=== PATIENT | female | born 1945 | race Caucasian/White ===

== ENCOUNTER 2018-12-20 18:34 | Inpatient (IN) | payer MEDICARE, OTHER, SELFPAY ==
[2018-12-20] VITALS (14 sets, daily range): BP systolic 131–152; BP diastolic 73–92; PULSE 86–98; RESP 16–23; TEMP 36.8–36.9; O2SAT 98–99; BMI 19.5; BMI 17.6; BMI 17.7
--- NOTE | 2018-12-20 18:50 | ED.RN ---
Pt's daughter states they last spoke to pt at 1600 yesterday and were not alert of any increased difficulties or deficits. Spoke with pt's son that saw her today at 1600. Stated she was on her left side and did not notice a droop to her face but did state she c/o pain to left arm and couldn't move it. states speech was normal for her. Daughter states this is typical behavior after missing her carbidopa. Pt has missed 3 doses today.
--- NOTE | 2018-12-20 19:01 | EKG12_ITS ---
Test Reason : Blood Pressure : / mmHG Vent. Rate : 091 BPM Atrial Rate : 091 BPM P-R Int : 122 ms QRS Dur : 082 ms QT Int : 358 ms P-R-T Axes : 054 -55 061 degrees QTc Int : 440 ms Normal sinus rhythm Left axis deviation Poor R- Wave Progression Septal ME, indetermined age; cannot be excluded Abnormal ECG Confirmed by FABIENNE MALIN, ETHEL ([id number]), photograph editor HEATH COHEN ([id number]) on 12/22/2018 12:19:52 PM Referred By: Agus Ortez Confirmed By:ETHEL LOVING MD
--- NOTE | 2018-12-20 19:01 | CT_ITS ---
STUDY: CT BRAIN WITHOUT CONTRAST REASON FOR EXAM: Female, 73 years old. Left facial droop, history of Parkinson's RADIATION DOSAGE (If Supplied By Facility): CTDIvol = ( 44.99 ) mGy, DLP = ( 745.49 ) mGycm TECHNIQUE: Transaxial CT imaging of the brain was performed without administration of intravenous contrast material. Individualized dose optimization techniques were used for this CT. COMPARISON: No relevant priors. FINDINGS: Normal soft tissue structures. Normal calvarium. Normal size ventricles and extra-axial spaces for the patient's age. Normal white matter tracts of the cerebral hemispheres. Normal basal ganglia and thalami. Normal brainstem. Normal cerebellum. There is no intracranial hemorrhage. There are no findings of an acute ischemic infarction. Normal visualized paranasal sinuses. CT/Brain/Head without Contrast IMPRESSION: Normal unenhanced CT scan of the brain. Electronically Signed: Omar Smith MD at 20:05 EDT , Service support ,
[2018-12-20] MEDS: 0.9% Normal Saline 1,000 ML 100 ML IV (19:05)
--- NOTE | 2018-12-20 19:16 | RAD_ITS ---
STUDY: X-RAY CHEST REASON FOR EXAM: Female, 73 years old. Left-sided facial droop, left-sided weakness, history of Parkinson's TECHNIQUE: Single AP portable view of the chest. 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 The lungs are clear and expanded. There is no demonstrated pleural abnormality. Normal size heart. Normal mediastinum and hannah. Normal visualized pulmonary arteries. There are calcified plaques of the aortic arch. Normal visualized thoracic spine. Normal visualized ribs, clavicles, and shoulders. There is no demonstrated abnormality of the visualized soft tissue structures of the upper abdomen. RAD/Chest 1 View IMPRESSION: Calcified plaques of the aortic arch. No acute cardiopulmonary disease process is seen. Electronically Signed: Omar Smith MD at 19:40 EDT , Service support ,
[2018-12-20 19:26] LABS: Bedside Glucose 119 mg/dL (70-110)
[2018-12-20 19:30] LABS: Absolute Lymphocyte Count 2.37 X10^3/ul (0.83-4.51); Basophil# 0.01 X10^3/uL; Basophil% 0.2 % (0-1); Eosinophil# 0.02 X10^3/uL; Eosinophils% 0.3 % (0-5); Hemoglobin 10.9 g/dl (12.0-15.0); Lymphocyte # 2.37 X10^3/ul (4.0); Lymphocyte % 39.8 % (19-41); Mean Corpuscular Volume 90.9 fL (81-99); Monocyte# 0.56 X10^3/uL; Monocyte% 9.4 % (0-10); Neutrophil # 2.99 X10^3/uL (2.7-7.7); Neutrophil % 50.3 % (47-70); Platelet Count 296 K/mm3 (150-450); RBC Distribution Width CV 13.3 % (11.6-14.6); RBC Distribution Width SD 44.4 fl (35.1-43.9); Red Blood Count 3.63 M/mm3 (4.2-5.4)
[2018-12-20 19:31] LABS: POSITIVE COUNT NO; POSITIVE DIFFERENTIAL NO; POSITIVE MORPHOLOGY NO
[2018-12-20 19:33] LABS: Prothrombin Time (Protime)PT. 13.4 SECONDS (11.7-14.9)
[2018-12-20 19:34] LABS: Partial Thromboplast Time 27.3 Seconds (24.1-36.2)
[2018-12-20 19:46] LABS: Anion Gap 4 (5-15); BUN 26 mg/dL (7-18); BUN/Creat Ratio 32.7 RATIO (10-20); Calcium,Total 8.6 mg/dL (8.5-10.1); Chloride 108 mmol/L (98-107); Creatinine, Serum 0.79 mg/dL (0.55-1.02); EST Glomerular Filtration Rate 76 mL/min (>60); Est Glom Filt Rate - Afr Amer 91 mL/min (>60); Estimated Creatinine Clearance 35.24 ml/min; Glucose 125 mg/dL (74-106); Sodium Level 139 mmol/L (136-145)
[2018-12-20] MEDS: Carbidopa/Levodopa 25/100 Tablet PO (20:17)
--- NOTE | 2018-12-20 20:38 | ED.VISSUMM ---
- ER Visit Summary Date of Service: 12/20/18 Chief Complaint: [Patient was droop and left-sided weakness] History of Present Illness: The patient is a 73 F [resents to the emergency department with complaint of facial droop and left-sided weakness that was noted when the patient's daughter went to check on her this evening around 5:00. Patient was last seen by the daughter about a week ago as they were on a vacation in [place]. When the patient's sons to check on her earlier in the day around 4 PM and he did not notice anything unusual about her as she always seems to kind of lay on her left side. Patient's daughter states that this is happened to the patient in the past when she has not taken her consents medications. Patient was noted to have missed her last 3 doses today. Patient generally is weak. She denies any headache or chest pain or shortness of breath. Patient has history of Parkinson's and anxiety. Surgical history includes appendectomy, cholecystectomy, hysterectomy.] Physical Examination: [HEENT-PERRLA, EOMI. Cranial nerves II through XII grossly intact. TMs clear. Mucous membranes moist. No adenopathy. Patient does have a left-sided facial droop. Cardiovascular-regular rate and rhythm without murmur or ectopy Lungs-clear to auscultation, chest wall stable without crepitus or subcu emphysema Abdomen-normoactive bowel sounds, soft, nontender, no rebound or rigidity, no peritoneal signs. Neuro exam-patient had an NIH stroke scale of 6 with left-sided weakness and left-sided facial droop. Patient is able to use her left arm as she can bring it up to her nose to scratch her nose. She has a hard time holding it up against gravity though. Extremities-intact ?4, normal range of motion, normal pulses, atraumatic] Test Results: [CT scan of the brain without contrast was unremarkable. EKG obtained showed sinus rhythm with a ventricular rate of 91 bpm with no acute ST segment changes. CBC with differential 6.0, hemoglobin 10.9, hematocrit 33, platelet 296. Chemistries unremarkable. INR was 1.0. Troponin is less than 0.015.] Emergency Department Course and Treatment: [Case was discussed with neurologist on-call who requested we admit patient for further work-up and evaluation. Case will be discussed with hospitalist for admission. We attempted to give patient levodopa.] Patient not a thrombolytic candidate as unclear time of symptom onset. Treatment Plan: [Admit] Disposition: [Admit] Impression: [Weakness CVA Parkinson's disease ] This note was generated with [employer] dictation software. It may contain incorrect words, spelling, and punctuation that were not noted in review of the chart prior to signing ED Disposition - Plan for ED Patient: Referrals: Chad Zamorano MD [Primary Care Provider] -
--- NOTE | 2018-12-20 20:53 | PCM.HP.STD ---
Problem List (1) Stroke-like symptoms Status: Acute History of Present Illness Date of Admission: 12/20/18 Chief Complaint: facial droop The patient is a 73 year old F with a significant history of Parkinson's disease who presented to the emergency department because of facial droop. Associated with symptoms is left-sided heaviness; and lethargy. The time of last known well is unknown. Family to the patient has recurrence of facial droop that they attribute to medicine doses of a Parkinson's medicine. per family patient made a recent verbalization of disinterest in living Per Emergency Department doctor the case was discussed with neurologist. Neurologist recommended that the patient stayed overnight for further work-up and observation. Past Medical History Past Medical History (Chronic Problems): Chronic Problems Parkinson disease (Chronic) Allergies acetaminophen [From [place]] Allergy (Verified 12/20/18 18:43) Rash adhesive Allergy (Verified 12/20/18 18:43) Rash atorvastatin [From Lipitor] Allergy (Verified 12/20/18 18:43) Rash cefaclor [From Ceclor] Allergy (Verified 12/20/18 18:43) Hives Cephalosporins Allergy (Verified 12/20/18 18:43) Unknown ciprofloxacin [From Cipro] Allergy (Verified 03/23/17 07:04) Hives hydrocodone [From [place]] Allergy (Verified 12/20/18 18:43) Rash hydromorphone [From Dilaudid] Allergy (Verified 12/20/18 18:43) Rash Macrolide Antibiotics Allergy (Verified 12/20/18 18:43) Hives oxycodone [From Percocet] Allergy (Verified 12/20/18 18:43) Rash propoxyphene [From Darvocet-N] Allergy (Verified 12/20/18 18:43) Rash simvastatin [From Zocor] Allergy (Verified 12/20/18 18:43) Unknown Sulfa (Sulfonamide Antibiotics) Allergy (Verified 12/20/18 18:43) Rash cimetidine [From Tagamet] Adverse Reaction (Verified 03/23/17 07:04) Upset Stomach erythromycin base Adverse Reaction (Verified 12/20/18 18:43) Upset Stomach Home Medications: Ambulatory Orders Medication Instructions Recorded Carbidopa/Levodopa 25/100 [Sinemet 0.5 tablet PO BID PRN 12/22/16 25/100] Melatonin 10 mg PO DAILY 06/12/16 Mirtazapine [Remeron] 45 mg PO QHS 06/12/16 Omeprazole 1 tab PO BREAKFAST 03/23/17 Paroxetine [Paxil] 1 tab PO DAILY 12/20/18 Carbidopa/Levodopa/Entacapone 200 mg PO Q3H 12/21/18 [Stalevo 100 Tablet] Surgical History: appendectomy, cholecystectomy, hysterectomy Psychiatric History: Depression Lives: Alone - Has home health care Smoking Status: Former smoker - *Family History Maternal History Items: Unknown - As she is adopted Paternal History Items: Unknown - As she is adopted Offspring History Items: Heart Disease - And her son who had significant stenosis to the left main requiring CABG, - Review of Systems Constitutional: Denies: Chills, Fever, Weight Change HEENT: Denies: Head Aches, Sinus Congestion, Sinus Drainage Cardiovascular: Denies: Chest Pain, Palpitations Respiratory: Denies: Cough, Shortness of breath at rest, Sputum production Gastrointestinal: Denies: Abdominal Pain, Nausea, Vomiting Genitourinary: Denies: Dysuria Musculoskeletal: Denies: Joint Pain, Joint Tenderness Skin: Denies: Rash, Wounds Neurological: Denies: Numbness, Tingling, Focal weakness Psychiatric: Denies: Anxiety, Depression, Homicidal Ideations, Suicidal Ideations Hematologic/ Lymphatic: Denies: Easy Bruising, Easy Bleeding VTE Information - Inpt Only VTE Present on Admission: No VTE Mechan Device Prophylaxis: None VTE Pharm Prophylaxis ordered?: Yes Patient Problems: Active and Suspected Problems Stroke-like symptoms (Acute) - Physical Exam General: Alert, Oriented x3, Cooperative HEENT: Atraumatic, PERRLA, EOMI, Normocephalic Neck: Supple, No JVD, Negative Carotid Bruits Lungs: Clear to auscultation, Normal air movement Cardiovascular: Regular rate, No murmurs Abdomen: Bowel Sounds Present, Soft, Non Tender Extremities: No edema, Capillary Refill Less than 3 Seconds Skin: No rashes, No breakdown Musculoskeletal: No Tenderness to Palpation of Joints or Extremities Neurological: Facial Droop - Patient noted to have persistent opening of the left corner of her mouth while her right corner of her mouth remained closed, - - Decreased strength in all extremities. At one point the patient stated that she could not lift her left lower leg. But noted to left and left lower leg for knee to stewart exams. No hyperreflexia. Psych/Mental Status: Normal Affect, Appropriate Vital Signs Temp Pulse Resp BP Pulse Ox 98.4 F 92 16 132/80 H 99 12/20/18 18:35 12/20/18 20:31 12/20/18 20:31 12/20/18 20:31 12/20/18 20:31 Oxygen Delivery Method Room Air Weight: 43.9 kg Body Mass Index (BMI) 19.5 Finger Stick Blood Glucose 119 Laboratory Tests Past 24 Hrs 12/20/18 12/20/18 12/20/18 18:38 18:38 18:38 WBC 6.0 RBC 3.63 L Hgb 10.9 L Hct 33.0 L MCV 90.9 MCH 30.0 MCHC 33.0 RDW 13.3 RDW Differential 44.4 H Plt Count 296 MPV 10.0 Immature Gran % (Auto) 0.000 Neut % (Auto) 50.3 Lymph % (Auto) 39.8 [place] % (Auto) 9.4 Eos % (Auto) 0.3 Baso % (Auto) 0.2 Absolute Neuts (auto) 3.0 Absolute Lymphs (auto) 2.37 Total Counted Not Reportable PT 13.4 INR 1.0 APTT 27.3 Sodium 139 Potassium 4.0 Chloride 108 H Carbon Dioxide 27.0 Anion Gap 4 L BUN 26 H Creatinine 0.79 Estim Creat Clear Calc 35.24 Est GFR (MDRD) Af Amer 91 Est GFR (MDRD) Non-Af 76 BUN/Creatinine Ratio 32.7 H Glucose 125 H Calcium 8.6 Troponin I < 0.015 POC Glucose 12/20/18 19:15 POC Glucose 119 H Assessment/Plan All Active Problems Stroke-like symptoms (Acute) Chest pain (Acute) The patient is a 73 year old F with a significant history of Parkinson's disease who presented to the emergency department because of facial droop and reported left sided heaviness likely from missing does of her Parkinson's medicine; depression. or psychogenic. Strokelike symptoms Likely from missing medicine for Parkinson's disease; depression with lack of motivation; or psychogenic. Of note appears stated that she could not lift her left lower extremities upon command. However she performed knee to stewart exams by placing hair left heel on her right knee and moving it down. CT of the head was unremarkable -Check Hba1c, Lipid level Physical therapy, occupational therapy and speech therapy to work with patient. N.p.o. until bedside swallow eval. Lipid profile and A1c ordered. Permissive hypertension. Control blood pressure with labetalol for systolic blood pressure of more than 220 or diastolic blood pressure of more than 120. -Permissive HTN for 24 hrs. MRI/MRAM of head; brain; and neck. Echocardiogram ordered. Parkinson's Sinemet; and Stalevo continued Depression Remeron and Paxil continued Insomnia Melatonin continued GERD Omeprazole continued DVT prophylaxis Subcutaneous heparin Code Visit OBSV E&M: 63294 Initial observation care L3
--- NOTE | 2018-12-20 21:15 | CM.ED ---
Social Work Assessment Informant: NURSING Reason for Consult: D/C PLANNING/RESOURCES Information obtained from: PATIENT, PATIENT'S DAUGHTER, ARGELIA AND SON-IN-LAW. Living Arrangements: PATIENT LIVES HOME ALONE IN A 2 STORY HOME WITH BASEMENT AND 3-4 STEPS TO ENTER FROM FRONT AND BACK. PATIENT'S BED AND BATH ON 2ND FLOOR. PATIENT SLEEPS ON COUCH AND HAS HALF BATH 10 FT FROM COUCH. DAUGHTER REPORTS WHEN PATIENT IS/CAN TAKE MEDICATIONS REGULARLY IS ABLE TO GO UP AND DOWN THE STEPS TO BED AND BATH. DME: WALKER, [employer] Employment/Financial: RETIRED/STABLE INCOME Supports: PATIENT HAS GOOD SUPPORT FROM DAUGHTER WHO ASSISTS WITH MEDICATION SET UP AND LIVES 5 HOUSES DOWN FROM PATIENT. PATIENT HAS HOME HEALTH AIDE IN THE HOME 2 DAYS/WEEK FOR 2 HOURS. Social/Family Stressors: DAUGHTER AND SON-IN-LAW DO NOT FEEL PATIENT CAN CONTINUE LIVING AT HOME ALONE. PATIENT IS IN AGREEMENT AND FEELS WOULD BENEFIT FROM SNF/REHAB. DAUGHTER REPORTS HER BROTHER, LALY IS HPOA AND IN CHARGE OF PATIENT'S FINANCES. DAUGHTER BELIEVES PATIENT TO HAVE THE MONEY TO BE ABLE TO HAVE ADDITIONAL CARE IN THE HOME OR GO TO ASSISTED LIVING, BUT SON IS RESISTANT. Mental Health History: PATIENT WITH HX OF ANXIETY, DEPRESSION AND PANIC ATTACKS THAT BECOME WORSE WITH THE TREMORS. Substance Abuse History: NONE Interventions: SOCIAL SERVICE ASSESSMENT EDUCATION ON OPTIONS FOR D/C- SNF, HOME HEALTH, ASSISTED LIVING DISCUSSED MEDICARE GUIDELINES FOR SNF. ALL VERBALIZE UNDERSTANDING. REFERRAL TO [facility] T[facility]/REHAB- FAMILY AND PATIENT OPEN TO EITHER OPTION. Assessment: PATIENT IS A 73 Y/O FEMALE WHO PRESENTS TO ED FOR CVA. PATIENT ALERT AND ORIENTED THROUGHOUT ASSESSMENT. PATIENT LIVES HOME ALONE IN A 2 STORY HOME WITH BASEMENT. DAUGHTER STATES FAMILY HAS SAT DOWN TO DISCUSS NEEDS FOR PATIENT AND PATIENT'S SON, WHO IS HPOA/DPOA HAS BEEN RESISTANT TO DETENTION/ASSISTED LIVING. PATIENT IS IN AGREEMENT WITH PLAN FOR SNF. DISCUSSED ALL OPTIONS AND BOTH DAUGHTER AND PATIENT REQUESTING REFERRAL TO REHAB/TCU-WHICHEVER PATIENT IS APPROPRIATE. DAUGHTER STATES PATIENT-WHEN ABLE TO TAKE MEDICATIONS REGULARLY,DOES WELL WITH ADLS/IADLS AND STILL DRIVES. DAUGHTER REPORTS WHEN PATIENT'S TREMORS ARE BAD- PATIENT WILL CRAWL FROM COUCH TO BATHROOM THAT IS 10 FT AWAY. PATIENT STATES, I CAN GET THERE FASTER. DAUGHTER NOTES PATIENT HAS HAD SHOULDER PAIN WHICH SHE BELIEVES IS FROM CRAWLING. EMOTIONAL SUPPORT AND ACTIVE LISTENING PROVIDED THROUGHOUT ASSESSMENT. REFERRAL MADE TO THE REFERRAL LINE FOR TCU/REHAB. DR. EASON AND NURSING UPDATED ON THE ABOVE. PLAN: ADMIT-REFERRAL MADE TO TCU/REHAB
--- NOTE | 2018-12-20 21:59 | ECHOD_ITS ---
Reason For Study: CVA Procedure This was a 2D Doppler, Color Flow transthoracic echocardiogram. The study was technically difficult. Due to body habitus and tremors from Parkinson's. Exam performed portable in patient room. Left Ventricle Normal LV size. Left ventricular systolic function is normal. The estimated ejection fraction is 60 %. Diastolic function is indeterminate. No regional wall motion abnormalities noted. Right Ventricle Normal RV size. Normal systolic function. Atria Normal left atrium. Normal right atrium. No doppler evidence for ASD. Mitral Valve There is moderate mitral annular calcification. Extension of the mitral annular calcification onto the posterior mitral valve leaflet. Trivial mitral valve insufficiency. Tricuspid Valve Normal tricuspid valve. Mild tricuspid valve insufficiency. Right ventricular systolic pressure estimated to be 27 mmHg. Aortic Valve Trisinus/trileaflet aortic valve. Normal aortic valve. Pulmonic Valve The pulmonic valve is not well visualized. Great Vessels Normal sized aortic root. Pericardium/Pleural No pericardial effusion. Medication Performed a rapid injection of agitated mix of 9 cc saline and 1cc air to assess for atrial septal defect. MMode/2D Measurements & Calculations LVIDd: 4.4 cm IVSd: 0.81 cm Ao root diam: 3.0 cm LVIDs: 2.5 cm LVPWd: 0.88 cm RVDd: 2.5 cm FS: 43.7 % LAV(MOD-bp): 26.7 ml LA A4 area: 11.3 cm2 LA dimension(2D): 2.4 cm LAV(MOD-bp) Indexed: 20.7 ml/m2 LAV(MOD-sp2): 21.0 ml LAV(MOD-sp4): 25.3 ml Time Measurements MV dec time: 0.22 sec Doppler Measurements & Calculations MV E max darren: 92.3 cm/sec Ao V2 max: 107.0 cm/sec LV V1 max: 77.1 cm/sec MV A max darren: 112.8 cm/sec Ao max P.6 mmHg LV V1 max P.4 mmHg MV E/A: 0.82 PA V2 max: 87.8 cm/sec TR max darren: 244.6 cm/sec TR max P.9 mmHg Interpretation Summary The study was technically difficult. Left ventricular systolic function is normal. The estimated ejection fraction is 60 %. There is moderate mitral annular calcification. Extension of the mitral annular calcification onto the posterior mitral valve leaflet. Trivial mitral valve insufficiency. Mild tricuspid valve insufficiency. Right ventricular systolic pressure estimated to be 27 mmHg. Diastolic function is indeterminate. Ordering Physician: Agus Ortez Referring Physician: Chad Zamorano Performed By: Ivanna Escamilla, DANELLE, RVT
[2018-12-21] VITALS (12 sets, daily range): BP systolic 99–131; BP diastolic 53–72; PULSE 71–94; RESP 16–18; TEMP 36.7–37; O2SAT 98–100
[2018-12-21 06:32] LABS: Cholesterol 203 mg/dL (200); High Density Lipoprotein 56 mg/dL; Triglycerides 72 mg/dL; Very Low Density Lipoprotein 14 mg/dL (5-40)
[2018-12-21 08:21] LABS: Hemoglobin A1c 5.6 % (4.2-6.3)
--- NOTE | 2018-12-21 08:30 | MRI_ITS ---
STUDY: MRA OF THE HEAD WITHOUT CONTRAST REASON FOR EXAM: Female, 73 years old. CVA. Left arm pain with numbness and weakness. Left facial droop x a few weeks. TECHNIQUE: 3-D ujpf-ct-zbfope (TOF) imaging was performed with MIPs. The study was performed unenhanced. COMPARISON: None. FINDINGS: Normal bilateral petrous carotid arteries. Normal right cavernous carotid artery with a normal supraclinoid bifurcation. Normal left cavernous carotid artery with a normal supraclinoid bifurcation. Normal right A1 segment of the anterior cerebral artery. Developmentally absent left A1 segment of the anterior cerebral artery. Normal intact anterior communicating artery (ACOM). Normal bilateral A2 segments of the anterior cerebral arteries. Normal right M1 and M2 segments of the middle cerebral arteries, with a normal M1 bifurcation. Normal left M1 and M2 segments of the middle cerebral arteries, with a normal M1 bifurcation. No visible right posterior communicating artery (PCOM). No visible left posterior communicating artery (PCOM). Normal bilateral vertebral arteries. Normal basilar artery with a normal basilar bifurcation. The visualized bilateral superior cerebellar (SCA) arteries are normal. Normal bilateral P1, P2 and visualized P3 segments of the posterior cerebral arteries. There is no demonstrated aneurysm of the [place]. There is no major vessel occlusion or hemodynamically significant stenosis. MRI/MRA Head ONLY without Contrast IMPRESSION: Normal MRA of the head Electronically Signed: Horace Galindo MD at 11:12 EDT , Service support ,
--- NOTE | 2018-12-21 08:30 | MRI_ITS ---
STUDY: MRA NECK WITH AND WITHOUT CONTRAST REASON FOR EXAM: Female, 73 years old. CVA. Left arm pain, numbness and left facial droop. TECHNIQUE: 3-D [id number]-zt-[id number] (TOF) imaging was performed in an 1.5 T MRI scanner. 9 IV Dotarem was administered for the contrast enhanced images. COMPARISON: None. FINDINGS: RIGHT CAROTID ARTERIES: Normal right common carotid artery (CCA). Normal right internal carotid bulb. Normal origin of the right internal carotid (ICA) artery without a hemodynamically significant stenosis. Normal visualized cervical portion of the right internal carotid artery. Normal origin of the right external carotid artery (ECA). LEFT CAROTID ARTERIES: Normal left common carotid artery (CCA). Normal left internal carotid bulb. Normal origin of the left internal carotid (ICA) artery without a hemodynamically significant stenosis. Normal visualized cervical portion of the left internal carotid artery. Normal origin of the left external carotid artery (ECA). VERTEBRAL ARTERIES: Normal antegrade flow within the bilateral vertebral artery without a hemodynamically significant stenosis. AORTIC ARCH: Widely patent aortic arch and origins of the great vessels. MRI/MRA Neck WITH and W/O Contrast IMPRESSION: 1. Normal MRA of both carotid arteries and vertebral arteries. 2. Normal aortic arch and origins of the great vessels. Electronically Signed: Horace Galindo MD at 11:33 EDT , Service support ,
--- NOTE | 2018-12-21 08:30 | MRI_ITS ---
STUDY: MRI BRAIN WITHOUT CONTRAST REASON FOR EXAM: Female, 73 years old. CVA. Left arm pain with numbness and weakness. Left facial droop x a few weeks. TECHNIQUE: Standardized multiplanar fat and water weighted pulse sequences were obtained. COMPARISON: CT head without contrast 12/20/2018. FINDINGS: No restricted diffusion to suspect acute or subacute ischemic infarct. Normal size of the ventricles and extra-axial spaces for the patient's age. Subcortical white matter T2 FLAIR hyperintensity focus in each frontal lobe are nonspecific. They may be secondary to microvascular disease. No mass effects and normal chest. Normal bilateral basal ganglia. Normal thalami. There is no extra-axial fluid accumulation. Normal flow voids within the major intracranial circulation suggesting patency by spin echo criteria. Normal sella turcica, pituitary gland, infundibular stalk, optic chiasm and hypothalamus. Normal tectal plate and pineal gland. Normal midbrain, jamshid and medulla. Normal cerebellum. Normal basal cisterns. Normal bilateral temporal bones. Normal bilateral internal auditory canals. No demonstrated orbital abnormality, within the constraints of a routine brain study. Normal visualized paranasal sinuses. Normal calvarium and skull base. Normal visualized soft tissue structures. Normal visualized upper cervical spine. MRI/Brain without Contrast IMPRESSION: 1. No MRI evidence of acute or subacute ischemic infarct. 2. No MRI evidence of remote cortical-based ischemic infarct or old lacunar ischemic infarcts. 3. Small nonspecific T2 FLAIR hyperintensity focus in each frontal lobe (series 6, image 15). They may be migraine-related changes or microvascular disease. Electronically Signed: Horace Galindo MD at 11:17 EDT , Service support ,
[2018-12-21] MEDS: Carbidopa/Levodopa/Entacapone 200 1 TAB PO ×5 (09:43→22:36)
[2018-12-21] MEDS: Enoxaparin 40 MG/0.4 ML Syringe SC (09:43)
[2018-12-21] MEDS: PARoxetine 10 MG Tablet PO (09:43)
[2018-12-21] MEDS: Pantoprazole Sodium 20 MG Tablet PO (09:43)
--- NOTE | 2018-12-21 11:03 | PCM.CONS.GEN ---
Problem List (1) Parkinson disease Status: Chronic Reason for Consult Date of Consultation: 12/21/18 Reason for Consultation: Stroke like symtpoms, PD History of Present Illness: The patient is a 73 year old F with PMH PD and anxiety admitted with stroke like symptoms. History is obtained from medical records and daughter. Per daughter patient lives alone, sometimes uses walker, does not fall, needs some assistance for her ALDs, and does drive. Per daughter she had been in [place] for the last week, came back on Thursday12/19/18, and patient spoke normally on the phone per patient on Thursday, but when she met her yesterday 12/20/18 around 5 PM, she was slumped on the couch, not moving much, had heaviness in the left arm with lethargy, was hardly talking and possibly had some left facial weakness, was rigid. Per daughter this had happened in the past when she missed her PD medications. At present patient denies any MENESES, focal motor weakness, sensory loss, dizziness, speech disturbances or visual disturbances but has bilateral tremors in both legs. Per daughter patient has been diagnosed with PD long time ago, is on Stalevo 200 mg PO 6 times a day and Sinemet 1/2 tab BID PRN, sees Dr. Bergeron for PD, per daughter patient had missed about 3 doses of Stalevo yesterday 12/20/18. [] Past Medical History Past Medical History (Chronic Problems): Chronic Problems Parkinson disease (Chronic) Allergies acetaminophen [From [place]] Allergy (Verified 12/20/18 18:43) Rash adhesive Allergy (Verified 12/20/18 18:43) Rash atorvastatin [From Lipitor] Allergy (Verified 12/20/18 18:43) Rash cefaclor [From Ceclor] Allergy (Verified 12/20/18 18:43) Hives Cephalosporins Allergy (Verified 12/20/18 18:43) Unknown ciprofloxacin [From Cipro] Allergy (Verified 03/23/17 07:04) Hives hydrocodone [From [place]] Allergy (Verified 12/20/18 18:43) Rash hydromorphone [From Dilaudid] Allergy (Verified 12/20/18 18:43) Rash Macrolide Antibiotics Allergy (Verified 12/20/18 18:43) Hives oxycodone [From Percocet] Allergy (Verified 12/20/18 18:43) Rash propoxyphene [From Darvocet-N] Allergy (Verified 12/20/18 18:43) Rash simvastatin [From Zocor] Allergy (Verified 12/20/18 18:43) Unknown Sulfa (Sulfonamide Antibiotics) Allergy (Verified 12/20/18 18:43) Rash cimetidine [From Tagamet] Adverse Reaction (Verified 03/23/17 07:04) Upset Stomach erythromycin base Adverse Reaction (Verified 12/20/18 18:43) Upset Stomach Home Medications: Ambulatory Orders Medication Instructions Recorded Carbidopa/Levodopa 25/100 [Sinemet 0.5 tablet PO BID PRN 06/12/16 25/100] Melatonin 10 mg PO DAILY 06/12/16 Mirtazapine [Remeron] 45 mg PO QHS 06/12/16 Omeprazole 1 tab PO BREAKFAST 03/23/17 Paroxetine [Paxil] 1 tab PO DAILY 12/20/18 Carbidopa/Levodopa/Entacapone 200 mg PO Q3H 12/21/18 [Stalevo 100 Tablet] Surgical History: appendectomy, cholecystectomy, hysterectomy Psychiatric History: Depression Lives: Alone - Has home health care Smoking Status: Former smoker Alcohol: None Drugs: None - *Family History Maternal History Items: Unknown - As she is adopted Paternal History Items: Unknown - As she is adopted Offspring History Items: Heart Disease - And her son who had significant stenosis to the left main requiring CABG, - Review of Systems Constitutional: Reports: - - complete ROS negative except as documented in HPI Patient Problems: Active and Suspected Problems Stroke-like symptoms (Acute) - Physical Exam General: Alert HEENT: Normocephalic Neck: Supple Lungs: Normal air movement Cardiovascular: Normal S1, Normal S2 Abdomen: Bowel Sounds Present Extremities: No cyanosis Neurological: - - consious, alert, AoAx3, CN 2-12 grossly intact, moves all 4 extremities, tone normal both UE, tremors both LE resting, no sensory loss, no cerebellar signs, gait deferred, Reflexes + B/L B/S/T/K/A Psych/Mental Status: Normal Affect Vital Signs Temp Pulse Resp BP Pulse Ox 98.1 F 85 16 128/61 H 99 12/21/18 09:45 12/21/18 09:45 12/21/18 09:45 12/21/18 09:45 12/21/18 09:45 Oxygen Delivery Method Room Air Weight: 39.8 kg Body Mass Index (BMI) 17.6 Finger Stick Blood Glucose 119 Intake and Output for Last 24 Hours 12/19/18 12/20/18 12/21/18 23:59 23:59 23:59 Intake Total 0 / 0 Output Total 700 / 700 Balance -700 / -700 Laboratory Tests Past 24 Hrs 12/20/18 12/20/18 12/20/18 18:38 18:38 18:38 WBC 6.0 RBC 3.63 L Hgb 10.9 L Hct 33.0 L MCV 90.9 MCH 30.0 MCHC 33.0 RDW 13.3 RDW Differential 44.4 H Plt Count 296 MPV 10.0 Immature Gran % (Auto) 0.000 Neut % (Auto) 50.3 Lymph % (Auto) 39.8 Carver % (Auto) 9.4 Eos % (Auto) 0.3 Baso % (Auto) 0.2 Absolute Neuts (auto) 3.0 Absolute Lymphs (auto) 2.37 Total Counted Not Reportable PT 13.4 INR 1.0 APTT 27.3 Sodium 139 Potassium 4.0 Chloride 108 H Carbon Dioxide 27.0 Anion Gap 4 L BUN 26 H Creatinine 0.79 Estim Creat Clear Calc 35.24 Est GFR (MDRD) Af Amer 91 Est GFR (MDRD) Non-Af 76 BUN/Creatinine Ratio 32.7 H Glucose 125 H Hemoglobin A1c Calcium 8.6 Troponin I < 0.015 Triglycerides Cholesterol LDL Cholesterol VLDL Cholesterol HDL Cholesterol 12/21/18 12/21/18 05:04 05:04 WBC RBC Hgb Hct MCV MCH MCHC RDW RDW Differential Plt Count MPV Immature Gran % (Auto) Neut % (Auto) Lymph % (Auto) Carver % (Auto) Eos % (Auto) Baso % (Auto) Absolute Neuts (auto) Absolute Lymphs (auto) Total Counted PT INR APTT Sodium Potassium Chloride Carbon Dioxide Anion Gap BUN Creatinine Estim Creat Clear Calc Est GFR (MDRD) Af Amer Est GFR (MDRD) Non-Af BUN/Creatinine Ratio Glucose Hemoglobin A1c 5.6 Calcium Troponin I Triglycerides 72 Cholesterol 203 H LDL Cholesterol 133 H VLDL Cholesterol 14 HDL Cholesterol 56 POC Glucose 12/20/18 19:15 POC Glucose 119 H Assessment/Plan All Active Problems Stroke-like symptoms (Acute) Chest pain (Acute) The patient is a 73 year old F with PMH PD and anxiety admitted with stroke like symptoms. History is obtained from medical records and daughter. Per daughter patient lives alone, sometimes uses walker, does not fall, needs some assistance for her ALDs, and does drive. Per daughter she had been in [place] for the last week, came back on Thursday12/19/18, and patient spoke normally on the phone per patient on Thursday, but when she met her yesterday 12/20/18 around 5 PM, she was slumped on the couch, not moving much, had heaviness in the left arm with lethargy, was hardly talking and possibly had some left facial weakness, was rigid. Per daughter this had happened in the past when she missed her PD medications. At present patient denies any MENESES, focal motor weakness, sensory loss, dizziness, speech disturbances or visual disturbances but has bilateral tremors in both legs. Per daughter patient has been diagnosed with PD long time ago, is on Stalevo 200 mg PO 6 times a day and Sinemet 1/2 tab BID PRN, sees Dr. Bergeron for PD, per daughter patient had missed about 3 doses of Stalevo yesterday 12/20/18. Impression PD Patients symptoms likely secondary to missing her PD medications Plan -MRI brain- nothing acute, no stroke, MRA head/neck negative -Continue home regimen of PD -PT/OT -Labs reviewed -Check UA -Fall precautions -GI/DVT prophylaxis -Further medical management per hospitalist team -Please call with questions if any -Thank you for allowing us to participate in patient's care and management Code Visit Inpatient E&M: [id number] Init Hosp L3
--- NOTE | 2018-12-21 11:57 | PCM.PN.HOSP ---
Patient Problems: Active and Suspected Problems Stroke-like symptoms (Acute) Subjective: Patient was admitted with left-sided heaviness/weakness and lethargy. He also noticed left-sided facial droop. Patient has a history of advanced Parkinson's disease. Discussed with patient's daughter was last seen well about 1 week ago before leaving for [place]. Overall, stroke work-up was negative. Patient has Marroquin catheter placed in ER. Patient has history of Parkinson disease and not incontinence and difficulty in emptying her bladder. Removal Marroquin catheter ordered. Vitals/I&O's: Vital Signs Temp Pulse Resp BP Pulse Ox 98.1 F 85 16 128/61 H 99 12/21/18 09:45 12/21/18 09:45 12/21/18 09:45 12/21/18 09:45 12/21/18 09:45 Oxygen Delivery Method Room Air Weight: 87 lb 11.904 oz Body Mass Index (BMI) 17.6 Finger Stick Blood Glucose 119 Intake and Output for Last 24 Hours 12/19/18 12/20/18 12/21/18 23:59 23:59 23:59 Intake Total 0 / 0 Output Total 700 / 700 Balance -700 / -700 General: Alert, Oriented x3, Cooperative HEENT: Atraumatic, PERRLA, EOMI, Normocephalic Oral: Dry Mucosa Neck: Supple, No JVD, Negative Carotid Bruits Lungs: Clear to auscultation, No rhonchi, No wheeze, No rales, Diminished Cardiovascular: Regular rate, Regular Rhythm, Normal S1, Normal S2, Murmur - Systolic murmur present on mitral area, aortic region and left lower sternal border. Abdomen: Bowel Sounds Present, Soft, Non Tender, Non-Distended, - - Marroquin catheter urine yellow no pus flecks Extremities: No edema, Capillary Refill Less than 3 Seconds Skin: No rashes, No breakdown Musculoskeletal: No Tenderness to Palpation of Joints or Extremities, Arthritic Changes, - - Stiffness of lower extremity muscles on both legs. Weakness of both lower extremities. Neurological: Cranial nerves II-XII grossly intact, Deep Tendon Reflexes 2+/4 and Symmetrical, Neuro grossly intact Psych/Mental Status: Appropriate, Flat Affect Laboratory Results 12/20/18 18:38: WBC 6.0, RBC 3.63 L, Hgb 10.9 L, Hct 33.0 L, MCV 90.9, MCH 30.0, MCHC 33.0, RDW 13.3, RDW Differential 44.4 H, Plt Count 296, MPV 10.0, Immature Gran % (Auto) 0.000, Neut % (Auto) 50.3, Lymph % (Auto) 39.8, Campbell % (Auto) 9.4, Eos % (Auto) 0.3, Baso % (Auto) 0.2, Absolute Neuts (auto) 3.0, Absolute Lymphs (auto) 2.37, Total Counted Not Reportable 12/20/18 18:38: PT 13.4, INR 1.0, APTT 27.3 12/20/18 18:38: Sodium 139, Potassium 4.0, Chloride 108 H, Carbon Dioxide 27.0, Anion Gap 4 L, BUN 26 H, Creatinine 0.79, Estim Creat Clear Calc 35.24, Est GFR (MDRD) Af Amer 91, Est GFR (MDRD) Non-Af 76, BUN/Creatinine Ratio 32.7 H, Glucose 125 H, Calcium 8.6, Troponin I < 0.015 12/20/18 19:15: POC Glucose 119 H 12/21/18 05:04: Triglycerides 72, Cholesterol 203 H, LDL Cholesterol 133 H, VLDL Cholesterol 14, HDL Cholesterol 56 12/21/18 05:04: Hemoglobin A1c 5.6 Current Medications Carbidopa/Levodopa (Sinemet) 0.5 tablet PO BID PRN PRN PRN Reason: tremors Carbidopa/Levodopa/Entacapone (Stalevo 200 Tablet) 1 tab PO 0730,1030,1330,1630 [facility] Last Admin: 12/21/18 09:43 Dose: 1 tab Documented by: Carbidopa/Levodopa/Entacapone (Stalevo 200 Tablet) 1 tab PO 1930,2230 [facility] Dextrose (D50w Syringe) 0 gm IV X1 PRN; Protocol PRN Reason: Hypoglycemia Enoxaparin Sodium (Lovenox) 40 mg SC DAILY@1000 [facility] Last Admin: 12/21/18 09:43 Dose: 40 mg Documented by: Glucagon () 1 mg IM .X1 PRN PRN Reason: Hypoglycemia Labetalol HCl (Trandate) 10 mg IV Q10M PRN PRN Reason: MAINTAIN BP < 220/120 Stop: 12/21/18 22:00 Melatonin (Melatonin) 10 mg PO DAILY@2200 [facility] Mirtazapine (Remeron) 45 mg PO QHS [facility] Last Admin: 12/20/18 23:37 Dose: Not Given Documented by: Nutritional Formula (Lactose Free) (Ensure Enlive) 120 ml PO 4X/DAY [facility] Last Admin: 12/21/18 09:43 Dose: 120 ml Documented by: Ondansetron HCl (Zofran) 4 mg IV Q8H PRN PRN PRN Reason: NAUSEA/VOMITING Pantoprazole Sodium (Protonix) 20 mg PO BREAKFAST [facility] Last Admin: 12/21/18 09:43 Dose: 20 mg Documented by: Paroxetine HCl (Paxil) 10 mg PO DAILY [facility] Last Admin: 12/21/18 09:43 Dose: 10 mg Documented by: Sodium Chloride () 10 - 40 ml IV UD PRN PRN Reason: SALINE FLUSH Medical Necessity - Tobacco Use Smoking Status: Former smoker Assessment/Plan All Active Problems Stroke-like symptoms (Acute) Chest pain (Acute) The patient is a 73 year old F with a significant history of Parkinson's disease who who is being admitted for concern of a stroke with left-sided facial droop and reported left sided heaviness/weakness after missing her doses of Parkinson's medicine. She also has chronic urinary incontinence possible urinary retention, mainly from neurogenic bladder or Parkinson's disease. She denies dysuria, increased frequency or urgency. 1. Parkinson's disease exacerbation probably secondary to missed doses: Patient was seen by neurologist. MRI brain does not show acute stroke. MRA head and neck negative. PT OT and speech evaluation ordered. Patient has difficulty in swallowing solid food probably from oropharyngeal muscle weakness secondary to Parkinson's disease. A1c 5.6.Patient had echo reported as EF 60%, no regional wall motion abnormality. Normal LA, RA and RV. Moderate mitral annular calcification with trivial MR. Mild tricuspid insufficiency, RVSP 27 mmHg. Continue her Parkinson's medications Sinemet and Stalevo 200 and Depression Remeron and Paxil continued Insomnia Melatonin continued GERD Omeprazole continued DVT prophylaxis Subcutaneous heparin Dyslipidemia: Lipid profile was done total cholesterol 203, LDL 133, HDL 56. Patient is allergic to atorvastatin/statin. Patient also has muscle weakness secondary to Parkinson's disease. Further discussion with family doctor regarding pros and cons of other hypolipidemic agents and follow-up myalgia/muscle weakness. Active Medications Carbidopa/Levodopa (Sinemet) 0.5 tablet PO BID PRN PRN PRN Reason: tremors Last Admin: 12/21/18 12:39 Dose: 0.5 tablet Documented by: Carbidopa/Levodopa/Entacapone (Stalevo 200 Tablet) 1 tab PO 0730,1030,1330,1630 [facility] Last Admin: 12/21/18 13:56 Dose: 1 tab Documented by: Carbidopa/Levodopa/Entacapone (Stalevo 200 Tablet) 1 tab PO 1930,2230 [facility] Dextrose (D50w Syringe) 0 gm IV X1 PRN; Protocol PRN Reason: Hypoglycemia Enoxaparin Sodium (Lovenox) 40 mg SC DAILY@1000 [facility] Last Admin: 12/21/18 09:43 Dose: 40 mg Documented by: Glucagon () 1 mg IM .X1 PRN PRN Reason: Hypoglycemia Labetalol HCl (Trandate) 10 mg IV Q10M PRN PRN Reason: MAINTAIN BP < 220/120 Stop: 12/21/18 22:00 Melatonin (Melatonin) 10 mg PO DAILY@2200 [facility] Mirtazapine (Remeron) 45 mg PO QHS [facility] Last Admin: 12/20/18 23:37 Dose: Not Given Documented by: Nutritional Formula (Lactose Free) (Ensure Enlive) 120 ml PO 4X/DAY [facility] Last Admin: 12/21/18 13:56 Dose: 120 ml Documented by: Ondansetron HCl (Zofran) 4 mg IV Q8H PRN PRN PRN Reason: NAUSEA/VOMITING Pantoprazole Sodium (Protonix) 20 mg PO BREAKFAST [facility] Last Admin: 12/21/18 09:43 Dose: 20 mg Documented by: Paroxetine HCl (Paxil) 10 mg PO DAILY [facility] Last Admin: 12/21/18 09:43 Dose: 10 mg Documented by: Sodium Chloride () 10 - 40 ml IV UD PRN PRN Reason: SALINE FLUSH Laboratory Results 12/20/18 18:38: WBC 6.0, RBC 3.63 L, Hgb 10.9 L, Hct 33.0 L, MCV 90.9, MCH 30.0, MCHC 33.0, RDW 13.3, RDW Differential 44.4 H, Plt Count 296, MPV 10.0, Immature Gran % (Auto) 0.000, Neut % (Auto) 50.3, Lymph % (Auto) 39.8, Campbell % (Auto) 9.4, Eos % (Auto) 0.3, Baso % (Auto) 0.2, Absolute Neuts (auto) 3.0, Absolute Lymphs (auto) 2.37, Total Counted Not Reportable 12/20/18 18:38: PT 13.4, INR 1.0, APTT 27.3 12/20/18 18:38: Sodium 139, Potassium 4.0, Chloride 108 H, Carbon Dioxide 27.0, Anion Gap 4 L, BUN 26 H, Creatinine 0.79, Estim Creat Clear Calc 35.24, Est GFR (MDRD) Af Amer 91, Est GFR (MDRD) Non-Af 76, BUN/Creatinine Ratio 32.7 H, Glucose 125 H, Calcium 8.6, Troponin I < 0.015 12/20/18 19:15: POC Glucose 119 H 12/21/18 05:04: Triglycerides 72, Cholesterol 203 H, LDL Cholesterol 133 H, VLDL Cholesterol 14, HDL Cholesterol 56 12/21/18 05:04: Hemoglobin A1c 5.6 Code Visit Inpatient E&M: [id number] Subs Hosp L3
[2018-12-21] MEDS: Carbidopa/Levodopa 25/100 Tablet PO (12:39)
--- NOTE | 2018-12-21 14:31 | CASEMGMT ---
ZEE spoke with Mallory in the Rehab Unit and Dr Santos accepted patient, but likely will not be today. ZEE notified patient's family while patient was in the bathroom. Plan: [facility] 4th floor rehab unit [place]
[2018-12-21 17:26] LABS: Squamous Epithelial Cells - UA 0 SEEN /hpf (5-10)
[2018-12-21 17:30] LABS: Color, Urine Amber (Yellow); Glucose, Dipstick Normal (Normal); Ketone-Dipstick 15 mg/dl (Negative); Leukocyte Esterase-Dipstick 500 /ul (Negative); Nitrite-Dipstick Positive (Negative); Occult Blood-Urine 25 /ul (Negative); Protein-Dipstick 15 mg/dl (Negative); Specific Gravity, Urine 1.015 (1.002-1.030); Urine Bilirubin Dipstick Negative (Negative); Urine Clarity Cloudy (Clear); Urine Urobilinogen Normal (Normal); Urine pH 6.5 (5.0 - 8.0)
[2018-12-21 18:38] LABS: Bacteria 4+ /hpf (None Seen); Mucous, Urine 1+ /hpf (<or=2+)
[2018-12-21 18:41] LABS: Red Blood Cells-Urine 0-5 SEEN /hpf (0-5); White Blood Cells 25-50 SEEN /hpf (0-5)
[2018-12-21 18:45] LABS: Hyaline Cast 5-10 SEEN /lpf (0-5)
[2018-12-21] MEDS: MELATONIN 10 MG TABLET PO (19:54)
[2018-12-21] MEDS: Mirtazapine 15 MG Tablet 45 MG PO (19:54)
[2018-12-22] VITALS (8 sets, daily range): BP systolic 93–114; BP diastolic 42–61; PULSE 75–98; RESP 16–18; TEMP 36.6–37.2; O2SAT 96–99
[2018-12-22] MEDS: Carbidopa/Levodopa/Entacapone 200 1 TAB PO ×3 (07:35→13:19)
[2018-12-22] MEDS: Pantoprazole Sodium 20 MG Tablet PO (09:29)
[2018-12-22] MEDS: Enoxaparin 40 MG/0.4 ML Syringe SC (09:29)
[2018-12-22] MEDS: PARoxetine 10 MG Tablet PO (09:29)
--- NOTE | 2018-12-22 10:46 | PCM.PN.NEU ---
Patient Problems: Active and Suspected Problems Stroke-like symptoms (Acute) Subjective: No issues overnight. She does not have any tremors of the extremities at present. UA?cloudy, LE?500, nitrite positive, WBC 25-50, bacteria +4 - Physical Exam General: Alert HEENT: Normocephalic Neck: Supple Lungs: Normal air movement Cardiovascular: Normal S1, Normal S2 Abdomen: Bowel Sounds Present Extremities: No cyanosis Neurological: - - consious, alert, AoAx3, CN 2-12 grossly intact, moves all 4 extremities, tone normal both UE,no tremors at present, no sensory loss, no cerebellar signs, gait deferred, Reflexes + B/L B/S/T/K/A Psych/Mental Status: Normal Affect Vital Signs Temp Pulse Resp BP Pulse Ox 97.9 F 82 16 96/61 99 12/22/18 09:30 12/22/18 09:30 12/22/18 09:30 12/22/18 09:30 12/22/18 09:30 Oxygen Delivery Method Room Air Weight: 39.8 kg Body Mass Index (BMI) 17.6 Finger Stick Blood Glucose 119 Intake and Output for Last 24 Hours 12/20/18 12/21/18 12/22/18 23:59 23:59 23:59 Intake Total 720 / 720 Output Total 1010 / 1010 150 / 150 Balance -290 / -290 -150 / -150 Laboratory Tests Past 24 Hrs 12/21/18 17:20 Urine Color Michelle Urine Clarity Cloudy Urine pH 6.5 Ur Specific [place] 1.015 Urine Protein 15 H Urine Glucose (UA) Normal Urine Ketones 15 H Urine Occult Blood 25 H Urine Nitrite Positive H Urine Bilirubin Negative Urine Urobilinogen Normal Ur Leukocyte Esterase 500 H Urine RBC 0-5 SEEN Urine WBC 25-50 SEEN Ur Squamous Epith Cells 0 SEEN Urine Bacteria 4+ Hyaline Casts 5-10 SEEN Urine Mucus 1+ Medical Necessity - Tobacco Use Smoking Status: Former smoker Assessment/Plan All Active Problems Stroke-like symptoms (Acute) Chest pain (Acute) The patient is a 73 year old F with PMH PD and anxiety admitted with stroke like symptoms. History is obtained from medical records and daughter. Per daughter patient lives alone, sometimes uses walker, does not fall, needs some assistance for her ALDs, and does drive. Per daughter she had been in [place] for the last week, came back on Thursday12/19/18, and patient spoke normally on the phone per patient on Thursday, but when she met her 12/20/18 around 5 PM, she was slumped on the chair, not moving much, had heaviness in the left arm with lethargy, was hardly talking and possibly had some left facial weakness, was rigid. Per daughter this had happened in the past when she missed her PD medications. At present patient denies any MENESES, focal motor weakness, sensory loss, dizziness, speech disturbances or visual disturbances but has bilateral tremors in both legs. Per daughter patient has been diagnosed with PD long time ago, is on Stalevo 200 mg PO 6 times a day and Sinemet 1/2 tab BID PRN, sees Dr. Bergeron for PD, per daughter patient had missed about 3 doses of Stalevo yesterday 12/20/18. Impression PD Patients symptoms likely secondary to missing her PD medications Plan -MRI brain- nothing acute, no stroke, MRA head/neck negative -Continue home regimen of PD -PT/OT -Labs reviewed -UA-UA?cloudy, LE?500, nitrite positive, WBC 25-50, bacteria +4. Further management per the hospitalist. -Fall precautions -GI/DVT prophylaxis -Further medical management per hospitalist team -Please call with questions if any -Thank you for allowing us to participate in patient's care and management
[2018-12-22] MEDS: Carbidopa/Levodopa 25/100 Tablet PO (11:38)
--- NOTE | 2018-12-22 11:40 | PCM.DC ---
- Discharge Diagnoses Current Active Problems: Current Active and Chronic Problems Stroke-like symptoms (Acute) You will use the following diet at home:: Cardiac Your food should be the consistency of: Regular Discharge Activity: May Not Drive Call your doctor if you observe: Fever of 101 or Higher, Numbness or Tingling, Change in Color, Inability to urinate, Inability to have a bowel movement, Shortness of breath, Dizziness, Fainting spells, Swelling in the ankles, Chest pain, Increased palpitations (irregular heartbeat), Calf discomfort, Uncontrolled pain Allergies/Adverse Reactions: Allergies acetaminophen [From [place]] Allergy (Verified 12/20/18 18:43) Rash adhesive Allergy (Verified 12/20/18 18:43) Rash atorvastatin [From Lipitor] Allergy (Verified 12/20/18 18:43) Rash cefaclor [From Ceclor] Allergy (Verified 12/20/18 18:43) Hives Cephalosporins Allergy (Verified 12/20/18 18:43) Unknown ciprofloxacin [From Cipro] Allergy (Verified 03/23/17 07:04) Hives hydrocodone [From [place]] Allergy (Verified 12/20/18 18:43) Rash hydromorphone [From Dilaudid] Allergy (Verified 12/20/18 18:43) Rash Macrolide Antibiotics Allergy (Verified 12/20/18 18:43) Hives oxycodone [From Percocet] Allergy (Verified 12/20/18 18:43) Rash propoxyphene [From Darvocet-N] Allergy (Verified 12/20/18 18:43) Rash simvastatin [From Zocor] Allergy (Verified 12/20/18 18:43) Unknown Sulfa (Sulfonamide Antibiotics) Allergy (Verified 12/20/18 18:43) Rash cimetidine [From Tagamet] Adverse Reaction (Verified 03/23/17 07:04) Upset Stomach erythromycin base Adverse Reaction (Verified 12/20/18 18:43) Upset Stomach Medications to take at Discharge Carbidopa/Levodopa 25/100 [Sinemet 25/100] 0.5 tablet PO BID PRN 06/12/16 Melatonin 10 mg PO DAILY 06/12/16 Mirtazapine [Remeron] 45 mg PO QHS 06/12/16 Omeprazole 1 tab PO BREAKFAST 03/23/17 Paroxetine [Paxil] 1 tab PO DAILY 12/20/18 Carbidopa/Levodopa/Entacapone [Stalevo 100 Tablet] 200 mg PO Q3H 12/21/18 Nitrofurantoin Macrocrystals [Macrobid] 100 mg PO BID capsule 12/22/18 Primary Care Physician: Chad Zamorano MD [Primary Care Provider] - Please follow up with your Primary Care Physician in: in 1-2 weeks Test Results: Test results from this visit will be discussed in further detail at your follow-up appointment, if applicable.
--- NOTE | 2018-12-22 11:59 | DS.PCM_ITS ---
Discharge Date and Diagnosis Date of Admission: 12/20/18 Date of Discharge: 12/22/18 - Primary Discharge Diagnosis Active and Suspected Problems Stroke-like symptoms (Acute) - Secondary Discharge Diagnosis Chronic Problems Parkinson disease (Chronic) Hospital Course and Treatment Summary of Care Provided: [] The patient is a 73 year old F with a significant history of Parkinson's disease who who is being admitted for concern of a stroke with left-sided facial droop and reported left sided heaviness/weakness after missing her doses of Parkinson's medicine. She also has chronic urinary incontinence possible urinary retention, mainly from neurogenic bladder or Parkinson's disease. She denies dysuria, increased frequency or urgency. 1. Parkinson's disease exacerbation probably secondary to missed doses: Patient was seen by neurologist. MRI brain does not show acute stroke. MRA head and neck negative. PT OT and speech evaluation ordered. Patient has difficulty in swallowing solid food probably from oropharyngeal muscle weakness secondary to Parkinson's disease. A1c 5.6.Patient had echo reported as EF 60%, no regional wall motion abnormality. Normal LA, RA and RV. Moderate mitral annular calcification with trivial MR. Mild tricuspid insufficiency, RVSP 27 mmHg. Continue her Parkinson's medications Sinemet and Stalevo 200. The patient is going to acute rehab. Cystitis/UTI are possible asymptomatic bacteriuria: Patient does not have new lower urinary tract symptoms but chronic symptoms of neurogenic bladder with retention and incontinence. UA shows 25-50 cells, LE 500, nitrite positive. Presumptive urine culture shows E. coli more than 100,000. Patient put on nitrofurantoin 100 mg twice daily for 3 days. With history of depression and mild dementia, exact history is questionable. Depression Remeron and Paxil continued Insomnia Melatonin continued GERD Omeprazole continued DVT prophylaxis Subcutaneous heparin Dyslipidemia: Lipid profile was done total cholesterol 203, LDL 133, HDL 56. Patient is allergic to atorvastatin/statin. Patient also has muscle weakness secondary to Parkinson's disease. Further discussion with family doctor regarding pros and cons of other hypolipidemic agents and follow-up myalgia/muscle weakness. Discharge medication reconciliation done. Discharge follow-up instructions completed. Discharge process discussed with the patient and all questions were answered to patient's satisfaction. The patient has been discharged to acute rehab. Total time spent, exact 35 minutes on discharge meds reconciliation, examination, review of imaging and blood test and discussion with the patient on follow-up instructions. Microbiology Past 72 Hours 12/21/18 17:20 Urine, Catheterized Urine Culture - Preliminary Presumptive E. coli Laboratory Results 12/21/18 17:20: Urine Color Michelle, Urine Clarity Cloudy, Urine pH 6.5, Ur Specific [place] 1.015, Urine Protein 15 H, Urine Glucose (UA) Normal, Urine Ketones 15 H, Urine Occult Blood 25 H, Urine Nitrite Positive H, Urine Bilirubin Negative, Urine Urobilinogen Normal, Ur Leukocyte Esterase 500 H, Urine RBC 0-5 SEEN, Urine WBC 25-50 SEEN, Ur Squamous Epith Cells 0 SEEN, Urine Bacteria 4+, Hyaline Casts 5-10 SEEN, Urine Mucus 1+ Subjective: Patient is having tremors and shaking mainly in right lower extremity. Patient knows that it is from Parkinson's disease. Denies lower urinary tract symptoms including frequency, urgency, burning micturition. Patient has chronic urinary retention and incontinence. Objective: General: Alert, Oriented x3, Cooperative HEENT: Atraumatic, PERRLA, EOMI, Normocephalic Oral: Mucosa moist. Neck: Supple, No JVD, Negative Carotid Bruits Lungs: Clear to auscultation, No rhonchi, No wheeze, No rales, air entry is di minished in bilateral lung bases Cardiovascular: Regular rate, Regular Rhythm, Normal S1, Normal S2, Murmur - Systolic murmur present on mitral area, aortic region and left lower sternal border. Abdomen: Bowel Sounds Present, Soft, Non Tender, Non-Distended, Marroquin catheter removed. Extremities: No edema, Capillary Refill Less than 3 Seconds Skin: No rashes, No breakdown Musculoskeletal: No Tenderness to Palpation of Joints or Extremities, Arthritic Changes,Stiffness of lower extremity muscles on both legs. The rigidity and weakness of both lower extremities have improved. Neurological: Cranial nerves II-XII grossly intact, Deep Tendon Reflexes 2+/4 and Symmetrical, Neuro grossly intact Psych/Mental Status: Appropriate, Flat Affect - Physical Exam Vital Signs Temp Pulse Resp BP Pulse Ox 97.9 F 82 16 96/61 99 12/22/18 09:30 12/22/18 09:30 12/22/18 09:30 12/22/18 09:30 12/22/18 09:30 Oxygen Delivery Method Room Air Weight: 87 lb 11.904 oz Body Mass Index (BMI) 17.6 Finger Stick Blood Glucose 119 Intake and Output for Last 24 Hours 12/20/18 12/21/18 12/22/18 23:59 23:59 23:59 Intake Total 720 / 720 Output Total 1010 / 1010 175 / 175 Balance -290 / -290 -175 / -175 Laboratory Tests Past 24 Hrs 12/21/18 17:20 Urine Color Michelle Urine Clarity Cloudy Urine pH 6.5 Ur Specific [place] 1.015 Urine Protein 15 H Urine Glucose (UA) Normal Urine Ketones 15 H Urine Occult Blood 25 H Urine Nitrite Positive H Urine Bilirubin Negative Urine Urobilinogen Normal Ur Leukocyte Esterase 500 H Urine RBC 0-5 SEEN Urine WBC 25-50 SEEN Ur Squamous Epith Cells 0 SEEN Urine Bacteria 4+ Hyaline Casts 5-10 SEEN Urine Mucus 1+ Discharge Activity: May Not Drive Call your doctor if you observe: Fever of 101 or Higher, Numbness or Tingling, Change in Color, Inability to urinate, Inability to have a bowel movement, Shortness of breath, Dizziness, Fainting spells, Swelling in the ankles, Chest pain, Increased palpitations (irregular heartbeat), Calf discomfort, Uncontrolled pain Home Medications: Medications to take at Discharge Carbidopa/Levodopa 25/100 [Sinemet 25/100] 0.5 tablet PO BID PRN 06/12/16 Melatonin 10 mg PO DAILY 06/12/16 Mirtazapine [Remeron] 45 mg PO QHS 06/12/16 Omeprazole 1 tab PO BREAKFAST 03/23/17 Paroxetine [Paxil] 1 tab PO DAILY 12/20/18 Carbidopa/Levodopa/Entacapone [Stalevo 100 Tablet] 200 mg PO Q3H 12/21/18 Nitrofurantoin Macrocrystals [Macrobid] 100 mg PO BID 12/22/18 Primary Care Physician: Chad Zamorano MD [Primary Care Provider] - Please follow up with your Primary Care Physician in: in 1-2 weeks Medical Necessity - Tobacco Use Smoking Status: Former smoker Meaningful Use Info Meaningful Use Diagnoses (Choose all that apply): None applicable Code Visit Inpatient E&M: [id number] [facility]
--- NOTE | 2018-12-22 12:00 | CASEMGMT ---
As per physician, pt may be able to go to rehab today. SW called Mallory in rehab, confirmed they can take pt when ready. TERESE John
--- NOTE | 2018-12-22 13:15 | CASEMGMT ---
Social Work SW met with pt and daughter Antonette and explained that pt is ready for d/c today to inpatient rehab. Pt dgt agreeable to transfer. Information on Inpatient Rehab provided. CARIDAD Thompson notified of pt ready for d/c. Phone call to Mallory in Inpt Rehab and notified of d/c today. FRANCISCO Luna
[2018-12-22] MEDS: Nitrofurantoin Macrocrystals 100 MG Capsule PO (13:19)
--- NOTE | 2018-12-22 13:26 | NURSING ---
Called report to Leslie MCLEAN on rehab floor
== END 2018-12-22 14:01 | DRG 56 ==
LOC: ED 19:34 → PCU 12-21 01:41
PROVIDERS: Psychiatry & Neurology Neurology; Admitting Provider Hospitalist; Emergency Provider Emergency Medicine; Family Provider Family Medicine; PCP Family Medicine; Referring Provider Hospitalist; Visit Provider Internal Medicine
DX: G20 Parkinson's disease (principal); E43 Unspecified severe protein-calorie malnutrition; Z68.1 Body mass index [BMI] 19.9 or less, adult; N31.9 Neuromuscular dysfunction of bladder, unspecified; N39.498 Other specified urinary incontinence; F32.9 Major depressive disorder, single episode, unspecified; G47.00 Insomnia, unspecified; K21.9 Gastro-esophageal reflux disease without esophagitis; E78.5 Hyperlipidemia, unspecified; R33.9 Retention of urine, unspecified; T42.8X6A Underdosing of antiparkinsonism drugs and other central muscle-tone depressants, initial encounter
CPT/HCPCS: 36415; 51702; 70450; 70544; 70549; 70551; 71045; 80048; 80061; 81001; 82962; 83036; 84484; 85025; 85610; 85730; 87086; 87088; 87186; 92526; 92610; 93005; 93306; 94762; 97163; 97166; 97802; 99285; A9575; J7030; A4216

== ENCOUNTER 2018-12-22 14:09 | Inpatient (IN) | payer MEDICARE, OTHER, SELFPAY ==
[2018-12-20 22:04] VITALS: BMI 17.6
--- NOTE | 2018-12-22 14:20 | PCM.RU.PYE ---
Admission Information Status Changes from Prescreening?: No changes Identified Actual Problem List:: Falls, Mobility Impaired, Self Care Deficit Potential Problem List:: DVT, Bleeding, Infection, UTI, Aspiration, Falls, Skin Integrity, Depression Risk of Complications DVT: LMWH, DAMON Hose, Sequential Compression Device Bleeding: Monitor Lab Values, Nursing to Teach Precautions for anti-coagulation therapy., Wound, if applicable, to be assessed every shift., Stroke patients assessed for lethargy or change in status. Infection: Clinical Staff to Monitor for S/S of infection:, S/S of infection include fever, redness, warmth, etc. Urinary Tract Infection: Monitor for frequency, burning, discomfort, or incontinence., Nursing will obtain urine sample for urinalysis and C&S when ordered. Aspiration: Clinical staff will monitor for coughing, drooling, congestion., Speech will evaluate swallowing and dsyphasia., Nursing will monitor patient swallowing during meals. Falls: Patient will be evaluated for Fall Precautions, Patient will be placed on Fall Precautions as indicated per protocol. Skin Breakdown: Nursing will assess skin daily using assessment tool., Nursing will place on Skin Breakdown Precautions as indicated. Pain: Clinical staff will assess patient's pain level per protocol., Medications will be given, if needed, and the pain level reassessed., Other methods: Massage, distraction, decrease stimulus, etc. used PRN. Plan of Care Patient requires physician specializing in physical medicine and rehab oversight to provide close medical supervision of rehab issues including: Pain Management, Sleep Problems, Bowel and Bladder, Medical and co-morbidity Management, DVT prophylaxis, Rehabilitation Leadership, Coordination of treatment team Patient needs Physical Therapy: For a minimum of 1 hour, At least 5 out of 7 days Patient needs Physical Therapy to improve:: Mobility, Mobility, Mobility, Strengthening, Transfers, Stretching, ROM, Endurance, Stairs, Gait, Balance Patient needs Occupational Therapy: For a minimum of 1 hour, At least 5 out of 7 days Patient needs Occupational Therapy to improve ADL's incl.: Eating, Grooming, Bathing, Dressing, Toileting, Toilet transfers, Community Reintegration, Higher functioning activities, Household tasks, Adaptive Equipment, Splinting, Other activities as determined Patient requires speech therapy: For a minimum of 1 hour, At least 5 out of 7 days Patient requires speech therapy for: Swallowing, Cognition, Language Skills, Compensatory Strategies Patient requires / Rehabilitation Nursing for: Pain Issues, Identifying and preventing risk factors, Monitoring and reporting current medical conditions, Assisting with ambulation, transfer, and all ADL's, Teaching patients about disease process and medications, Family teaching, Providing safe environment, Bowel and Bladder Issues, Skin integrity, Medication Management Patient needs Radiology Transporter/ Case Management for: Discharge Planning, Arranging Home Equipment or Services, Family Interventions Patient needs Dietary and Nutrition Services for: Adequate Nutrition, Nutritional Supplements, Nutritional Education Goals Patient will remain: free from falls, or injury at time of discharge. Patient will perform bed mobility at: MOD I level of assist. Patient will complete transfers from bed to chair at: MOD I level of assist. Patient will ambulate: 100 feet, with MOD I assist, with LRD Patient will complete upper body dressing at: MOD I level of assist. Patient will complete lower body dressing at: MOD I level of assist. Patient will complete toileting at: MOD I level of assist. Patient will perform bathing at: MOD I level of assist. Patient will complete grooming at: MOD I level of assist. Patient will complete home management skills at: MOD I level of assist. Patient will achieve: 12 stairs, at MOD I assist Patient will have pain level of: of 3 or less Patient's skin will: remain intact, free from infection. Patient will receive: adequate nutrition. Discharge Planning Pt Prognosis for Sig. Practical Improv. w/in Reasonable Time: Good Estimated Length of stay (days): 21 Anticipated D/C Destination: [facility] Facility
[2018-12-22 14:34] VITALS: BP 100/55; PULSE 89; RESP 20; TEMP 37; O2SAT 99; BMI 18.6
--- NOTE | 2018-12-22 15:15 | PCM.HP.COS ---
History of Present Illness Date of Admission: 12/22/18 Chief Complaint: Debility secondary to parkinsons The patient is a 73 year old F with PMH of Parkinson disease, depression, anxiety, insomnia and GERD, admitted to [facility] for debility secondary to parkinsons, for greater than 3 hours of therapy daily with the goal of returning back home at or near her prior level functional dependence. Patient presented to [facility] on 12/20/2018 for left sided weakness and facial droop. Patient had missed 3 doses of medication for parkinson disease on that day. Per daughter these symptoms has happened in past if missed doses of medication. Ct of brain unremarkable. On 12/21/2018 MRI of brain no acute or subacute infarct, ischemic infarct, or old lacunar ischemic infarcts. Small non-specific subcortical white matter T2 FLAIR hyperintensity focus in each frontal lobe. MRA of head and neck unremarkable. UA was obtained which showed Protein 15, Ketones 15, Occult blood 25, Nitrite positive, Leukocyte esterase 500, RBC 0-5, WBC 25-50, Bacteria 4+, Hyaline casts 5-10, and mucus 1+. Urine CX pending. Patient was started on Macrobid 100 mg BID, with last dose on 12/24/2018 at . Patient lives alone in a two story house, sleeps on first floor, bathing needs on second floor. Patient is independent with all ADLs, uses a cane or walker with transfers and mobility and drives short distances prior to this admission. Past Medical History Past Medical History (Chronic Problems): Chronic Problems (Last Updated 12/22/18 @ 16:35 by BRYANNA Smith) Parkinson disease (Chronic) Insomnia (Chronic) GERD (gastroesophageal reflux disease) (Chronic) Anxiety (Chronic) Depression (Chronic) Medical History: Medical History (Last Updated 12/22/18 @ 16:35 by BRYANNA Smith) Insomnia (Chronic) G47.00 GERD (gastroesophageal reflux disease) (Chronic) K21.9 Anxiety (Chronic) F41.9 Depression (Chronic) F32.9 Allergies acetaminophen [From Garrett] Allergy (Verified 12/20/18 18:43) Rash adhesive Allergy (Verified 12/20/18 18:43) Rash atorvastatin [From Lipitor] Allergy (Verified 12/20/18 18:43) Rash cefaclor [From Ceclor] Allergy (Verified 12/20/18 18:43) Hives Cephalosporins Allergy (Verified 12/20/18 18:43) Unknown ciprofloxacin [From Cipro] Allergy (Verified 03/23/17 07:04) Hives hydrocodone [From Garrett] Allergy (Verified 12/20/18 18:43) Rash hydromorphone [From Dilaudid] Allergy (Verified 12/20/18 18:43) Rash Macrolide Antibiotics Allergy (Verified 12/20/18 18:43) Hives oxycodone [From Percocet] Allergy (Verified 12/20/18 18:43) Rash propoxyphene [From Darvocet-N] Allergy (Verified 12/20/18 18:43) Rash simvastatin [From Zocor] Allergy (Verified 12/20/18 18:43) Unknown Sulfa (Sulfonamide Antibiotics) Allergy (Verified 12/20/18 18:43) Rash cimetidine [From Tagamet] Adverse Reaction (Verified 03/23/17 07:04) Upset Stomach erythromycin base Adverse Reaction (Verified 12/20/18 18:43) Upset Stomach Home Medications: Ambulatory Orders Medication Instructions Recorded Carbidopa/Levodopa 25/100 [Sinemet 0.5 tablet PO BID PRN 06/12/16 25/100] Melatonin 10 mg PO DAILY 06/12/16 Mirtazapine [Remeron] 45 mg PO QHS 06/12/16 Omeprazole 1 tab PO BREAKFAST 03/23/17 Paroxetine [Paxil] 1 tab PO DAILY 12/20/18 Carbidopa/Levodopa/Entacapone 200 mg PO Q3H 12/21/18 [Stalevo 100 Tablet] Nitrofurantoin Macrocrystals 100 mg PO BID 12/22/18 [Macrobid] Surgical History: appendectomy, cholecystectomy, hysterectomy, tonsillectomy Psychiatric History: Depression Lives: Alone Smoking Status: Former smoker - x 20 years 1 pack per 2 weeks cessation in Tobacco Use: Cigarettes Alcohol: None Drugs: None - *Family History Offspring History Items: Heart Disease - And her son who had significant stenosis to the left main requiring CABG, - Maternal History Items: Unknown - As she is adopted Paternal History Items: Unknown - As she is adopted Review of Systems Constitutional: Denies: Chills, Fever, Weight Change Eyes: Denies: Blurred vision, Double vision, Vision Change HEENT: Denies: Difficulty Swallowing, Head Aches, Sinus Congestion, Sinus Drainage Cardiovascular: Reports: Light Headedness. Denies: Chest Pain, Chest Pressure, Chest Tightness, Palpitations Respiratory: Denies: Cough, Shortness of Breath, Shortness of breath at rest, Sputum production Gastrointestinal: Denies: Abdominal Pain, Nausea, Vomiting Genitourinary: Denies: Dysuria, Frequency, Urgency Musculoskeletal: Denies: Joint Pain, Joint Tenderness Skin: Denies: Rash, Wounds Neurological: Reports: Numbness - intermittant to left hand fingers. Denies: Blurred vision, Double vision, Focal weakness, Tingling Psychiatric: Reports: Depression - reports depression, but on paxil denies thoughts or feelings to harm self, nor has a plan Hematologic/ Lymphatic: Denies: Easy Bruising, Easy Bleeding VTE Information - Inpt Only VTE Present on Admission: No VTE Mechan Device Prophylaxis: Knee High JOEL Hose VTE Pharm Prophylaxis ordered?: Yes - Physical Exam General: Alert, Oriented x3, Cooperative HEENT: Atraumatic, PERRLA Oral: Moist Mucosa Neck: Supple, No JVD Lungs: Clear to auscultation, Normal air movement Cardiovascular: Regular rate, Regular Rhythm Abdomen: Bowel Sounds Present, Soft, Non Tender Extremities: No clubbing, No cyanosis, No edema Skin: - - ecchymotic to bilateral arms, abdomen Neurological: Cranial nerves II-XII grossly intact, Deep Tendon Reflexes 2+/4 and Symmetrical, Motor Exam 5/5 strength throughout, Facial Droop - left-chronic Psych/Mental Status: Normal Affect, Appropriate, Alert and oriented to time, place, person, mood and affect Vital Signs Temp Pulse Resp BP Pulse Ox 98.6 F 89 20 H 100/55 L 99 12/22/18 14:34 12/22/18 14:34 12/22/18 14:34 12/22/18 14:34 12/22/18 14:34 Oxygen Delivery Method Room Air Weight: 41.73 kg Body Mass Index (BMI) 18.6 Finger Stick Blood Glucose 119 Assessment/Plan All Active Problems (Last Updated 12/22/18 @ 16:35 by Andree Carpenter, MAGAZINE SUPERVISOR-C) Chest pain (Acute) Stroke-like symptoms (Acute) The patient is a 73 year old F with PMH of Parkinson disease, depression, anxiety, insomnia and GERD, admitted to [facility] for debility secondary to parkinsons, for greater than 3 hours of therapy daily with the goal of returning back home at or near her prior level functional dependence. Patient presented to [facility] on 12/20/2018 for left sided weakness and facial droop. Patient had missed 3 doses of medication for parkinson disease on that day. Per daughter these symptoms has happened in past if missed doses of medication. Ct of brain unremarkable. On 12/21/2018 MRI of brain no acute or subacute infarct, ischemic infarct, or old lacunar ischemic infarcts. Small non-specific subcortical white matter T2 FLAIR hyperintensity focus in each frontal lobe. MRA of head and neck unremarkable. UA was obtained which showed Protein 15, Ketones 15, Occult blood 25, Nitrite positive, Leukocyte esterase 500, RBC 0-5, WBC 25-50, Bacteria 4+, Hyaline casts 5-10, and mucus 1+. Urine CX pending. Patient was started on Macrobid 100 mg BID, with last dose on 12/24/2018 at [facility]. Patient lives alone in a two story house, sleeps on first floor, bathing needs on second floor. Patient is independent with all ADLs, uses a cane or walker with transfers and mobility and drives short distances prior to this admission. Plan - PT for mobility - OT for ADLs - ST for cognition/speech - Analgesics as needed - Bowel protocol - Parkinson on Stalevo and Sinemet - Depression/anxiety on Paxil, Remeron - Insomnia on Remeron and melatonin - Gerd on Protonix - UA positive on Macrobid last dose on 12/24 at [facility], Urine CX pending - GI/DVT prophylaxis on Protonix/Lovenox and knee high joel hose - Medical management per hospitalist-consult - Fall precautions - F/U with PCP and Neurology
[2018-12-22] MEDS: Carbidopa/Levodopa/Entacapone 200 1 TAB PO ×3 (16:59→22:19)
[2018-12-22 18:44] VITALS: O2SAT 97
[2018-12-22 19:36] VITALS: BP 119/71; PULSE 100; RESP 18; TEMP 36.8; O2SAT 96
[2018-12-22] MEDS: Senna/Docusate Sodium 1 Tablet 2 TABLET PO (19:40)
[2018-12-22] MEDS: Mirtazapine 15 MG Tablet 45 MG PO (19:40)
[2018-12-22] MEDS: Nitrofurantoin Macrocrystals 100 MG Capsule PO (19:40)
[2018-12-22] MEDS: MELATONIN 10 MG TABLET PO (19:41)
[2018-12-23] MEDS: Carbidopa/Levodopa 25/100 Tablet PO ×2 (03:58→16:57)
[2018-12-23] MEDS: Enoxaparin 40 MG/0.4 ML Syringe SC (06:43)
[2018-12-23 07:16] LABS: Absolute Lymphocyte Count 2.19 X10^3/ul (0.83-4.51); Absolute Neutrophil Count 2.6 X10^3/uL (2.0-7.7); Basophil# 0.01 X10^3/uL; Basophil% 0.2 % (0-1); Eosinophil# 0.11 X10^3/uL; Hemoglobin 10.5 g/dl (12.0-15.0); Lymphocyte # 2.19 X10^3/ul (4.0); Lymphocyte % 40.6 % (19-41); Mean Corp Hgb Conc 32.8 g/gl (32-36); Mean Corpuscular Hgb 29.8 pg (27.0-32.0); Mean Corpuscular Volume 90.9 fL (81-99); Monocyte# 0.53 X10^3/uL; Monocyte% 9.8 % (0-10); Neutrophil # 2.55 X10^3/uL (2.7-7.7); Neutrophil % 47.4 % (47-70); Platelet Count 278 K/mm3 (150-450); RBC Distribution Width CV 13.2 % (11.6-14.6); RBC Distribution Width SD 43.8 fl (35.1-43.9); Red Blood Count 3.52 M/mm3 (4.2-5.4); White Blood Count 5.4 K/mm3 (4.4-11.0)
[2018-12-23 07:27] LABS: POSITIVE COUNT NO; POSITIVE DIFFERENTIAL NO; POSITIVE MORPHOLOGY NO
--- NOTE | 2018-12-23 07:30 | NURSING ---
pt assisted to bathroom and back to bed. pt with ble tremors at this time. drooling from left side of mouth noted with left facial droop which is chronic. pt states continues to have numbness to left side which she has had. alert and oriented x2, reoriented to date, speech slurred. pt states feels like she is having a panic attack. contacted daughter and per her this is all pts baseline. scheduled stalevo given, pt denies any other needs at this time. will monitor.
[2018-12-23] MEDS: Pantoprazole Sodium 20 MG Tablet PO (07:43)
[2018-12-23] MEDS: Carbidopa/Levodopa/Entacapone 200 1 TAB PO ×6 (07:43→22:37)
[2018-12-23 07:45] VITALS: BP 147/75; PULSE 100; RESP 18; TEMP 36.7; O2SAT 95
[2018-12-23 08:02] LABS: ALB/GLOB Ratio 1.2 RATIO (0.9-2.4); AST(SGOT) 14 U/L (15-37); Alanine Aminotransfer ALT/SGPT 8 U/L (13-56); Albumin, Serum 3.5 g/dL (3.2-5.0); Alkaline Phosphatase 67 U/L (45-117); BUN 25 mg/dL (7-18); BUN/Creat Ratio 35.7 RATIO (10-20); Calcium,Total 8.8 mg/dL (8.5-10.1); EST Glomerular Filtration Rate 87 mL/min (>60); Est Glom Filt Rate - Afr Amer 106 mL/min (>60); Glucose 108 mg/dL (74-106); Protein, Total 6.5 g/dL (6.4-8.2); Sodium Level 140 mmol/L (136-145)
[2018-12-23 08:03] LABS: Anion Gap 6 (5-15); Chloride 105 mmol/L (98-107); Potassium 3.9 mmol/L (3.5-5.1)
--- NOTE | 2018-12-23 10:00 | NURSING ---
dr glaser notified of pts c/o feeling like she is having a panic attack and new orders received.
[2018-12-23] MEDS: PARoxetine 10 MG Tablet PO (10:32)
[2018-12-23] MEDS: Nitrofurantoin Macrocrystals 100 MG Capsule PO ×2 (10:34→21:56)
[2018-12-23] MEDS: Senna/Docusate Sodium 1 Tablet 2 TABLET PO ×2 (10:41→21:55)
--- NOTE | 2018-12-23 11:30 | NURSING ---
up in chair in room, per pt she is feeling much better.
[2018-12-23] MEDS: busPIRone 5 MG Tablet PO (11:48)
--- NOTE | 2018-12-23 15:50 | PCM.PN.HOSP ---
Subjective: Nurse called me in the morning saying patient has severe anxiety and panic attack. Patient tremors. Patient states it is her Parkinson disease. Earlier patient was transferred from acute care for further management of physical disability. Vitals/I&O's: Vital Signs Temp Pulse Resp BP Pulse Ox 98.1 F 100 18 147/75 H 95 12/23/18 07:45 12/23/18 07:45 12/23/18 07:45 12/23/18 07:45 12/23/18 07:45 Oxygen Delivery Method Room Air Weight: 91 lb 15.982 oz Body Mass Index (BMI) 18.6 Finger Stick Blood Glucose 119 General: - - Currently patient is quiet, sleeping. HEENT: Atraumatic, PERRLA, EOMI, Normocephalic, - - Mild left-sided facial droop. Possible related to Parkinson disease Neck: Supple, No JVD, Negative Carotid Bruits Lungs: Clear to auscultation, Normal air movement Cardiovascular: Regular rate, Regular Rhythm, Normal S1, Normal S2, No murmurs Abdomen: Bowel Sounds Present, Soft, Non Tender, Non-Distended Extremities: No edema, Capillary Refill Less than 3 Seconds Skin: No rashes, No breakdown Musculoskeletal: Arthritic Changes, Muscle Wasting, - - tiffness of lower extremity muscles on both legs. The rigidity and weakness of both lower extremities have improved. Neurological: Deep Tendon Reflexes 2+/4 and Symmetrical, Neuro grossly intact Psych/Mental Status: Anxious, Depressed Laboratory Results 12/23/18 06:58: WBC 5.4, RBC 3.52 L, Hgb 10.5 L, Hct 32.0 L, MCV 90.9, MCH 29.8, MCHC 32.8, RDW 13.2, RDW Differential 43.8, Plt Count 278, MPV 10.0, Immature Gran % (Auto) 0.000, Neut % (Auto) 47.4, Lymph % (Auto) 40.6, [place] % (Auto) 9.8, Eos % (Auto) 2.0, Baso % (Auto) 0.2, Absolute Neuts (auto) 2.6, Absolute Lymphs (auto) 2.19, Total Counted Not Reportable 12/23/18 06:58: Sodium 140, Potassium 3.9, Chloride 105, Carbon Dioxide 29.0, Anion Gap 6, BUN 25 H, Creatinine 0.70, Estim Creat Clear Calc 33.50, Est GFR (MDRD) Af Amer 106, Est GFR (MDRD) Non-Af 87, BUN/Creatinine Ratio 35.7 H, Glucose 108 H, Calcium 8.8, Total Bilirubin 0.50, AST 14 L, ALT 8 L, Alkaline Phosphatase 67, Total Protein 6.5, Albumin 3.5, Globulin 3.0, Albumin/Globulin Ratio 1.2 Current Medications Bisacodyl (Dulcolax) 10 mg RECTAL .PRN X 1 PRN PRN Reason: Constipation Buspirone HCl (Buspar) 5 mg PO TID PRN PRN Reason: anxiety/panic attack Last Admin: 12/23/18 11:48 Dose: 5 mg Documented by: Carbidopa/Levodopa (Sinemet) 1 tablet PO BID PRN PRN PRN Reason: tremors Carbidopa/Levodopa/Entacapone (Stalevo 200 Tablet) 1 tab PO 0730,1030,1330,1630 [facility] Last Admin: 12/23/18 13:49 Dose: 1 tab Documented by: Carbidopa/Levodopa/Entacapone (Stalevo 200 Tablet) 1 tab PO 1930,2230 [facility] Last Admin: 12/22/18 22:19 Dose: 1 tab Documented by: Enoxaparin Sodium (Lovenox) 40 mg SC DAILY@0600 [facility] Last Admin: 12/23/18 06:43 Dose: 40 mg Documented by: Magnesium Hydroxide (Milk Of Magnesia) 30 ml PO .PRN X 1 PRN PRN Reason: Constipation Melatonin (Melatonin) 10 mg PO QHS [facility] Last Admin: 12/22/18 19:41 Dose: 10 mg Documented by: Mirtazapine (Remeron) 45 mg PO QHS [facility] Last Admin: 12/22/18 19:40 Dose: 45 mg Documented by: Nitrofurantoin Macrocrystals (Macrobid) 100 mg PO BID [facility] Stop: 12/24/18 22:01 Last Admin: 12/23/18 10:34 Dose: 100 mg Documented by: Nutritional Formula (Lactose Free) (Ensure Enlive) 120 ml PO 4X/DAY [facility] Last Admin: 12/23/18 13:50 Dose: 120 ml Documented by: Pantoprazole Sodium (Protonix) 20 mg PO BREAKFAST [facility] Last Admin: 12/23/18 07:43 Dose: 20 mg Documented by: Paroxetine HCl (Paxil) 10 mg PO DAILY [facility] Last Admin: 12/23/18 10:32 Dose: 10 mg Documented by: Senna/Docusate Sodium (Senokot-S, Meghan-Colace) 2 tablet PO BID [facility] Last Admin: 12/23/18 10:41 Dose: 2 tablet Documented by: Medical Necessity - Tobacco Use Smoking Status: Former smoker - x 20 years 1 pack per 2 weeks cessation in Tobacco Use: Cigarettes Assessment/Plan All Active Problems (Last Updated 12/22/18 @ 16:35 by Andree Carpenter, ACCESSIONER-C) Chest pain (Acute) Stroke-like symptoms (Acute) The patient is a 73 year old F with a significant history of Parkinson's disease who was admitted to acute rehab from acute hospital care for further management of physical disability secondary to Parkinson's disease. Patient was discharged after management of left-sided facial droop, left-sided heaviness/weakness after she missed her Parkinson's medicine. Acute stroke was ruled out with negative MRI brain and MRA head and neck. 1. Parkinson's disease exacerbation probably secondary to missed doses: Patient is admitted in acute rehab. Seen by neurologist. Her today panic attack most likely related to exacerbation of Parkinson's disease for which doses of Sinemet was increased by neurologist. Continue PT, OT speech and swallow evaluation and treatment. Patient has difficulty in swallowing solid food probably from oropharyngeal muscle weakness secondary to Parkinson's disease. A1c 5.6. Patient had echo reported as EF 60%, no regional wall motion abnormality. Normal LA, RA and RV. Moderate mitral annular calcification with trivial MR. Mild tricuspid insufficiency, RVSP 27 mmHg. Continue her Parkinson's medications Sinemet and Stalevo 200. 2. Cystitis/possible asymptomatic bacteriuria: Patient denies new lower urinary tract symptoms but chronic symptoms of neurogenic bladder with retention and incontinence. UA shows 25-50 cells, LE 500, nitrite positive. Presumptive urine culture shows E. coli more than 100,000. But with history of mild dementia and depression, exact lower urinary tract symptoms is questionable therefore decided to treat with nitrofurantoin 100 mg twice daily for 3 days. Patient has multiple allergy to cephalosporin, sulfonamide, fluoroquinolones. 3. Dyslipidemia: Lipid profile was done total cholesterol 203, LDL 133, HDL 56. Patient is allergic to atorvastatin/statin. Patient also has muscle weakness secondary to Parkinson's disease. Further discussion with family doctor regarding pros and cons of other hypolipidemic agents and follow-up myalgia/muscle weakness. Depression Remeron and Paxil continued Insomnia Melatonin continued GERD Omeprazole continued DVT prophylaxis Subcutaneous heparin Laboratory Results 12/23/18 06:58: WBC 5.4, RBC 3.52 L, Hgb 10.5 L, Hct 32.0 L, MCV 90.9, MCH 29.8, MCHC 32.8, RDW 13.2, RDW Differential 43.8, Plt Count 278, MPV 10.0, Immature Gran % (Auto) 0.000, Neut % (Auto) 47.4, Lymph % (Auto) 40.6, [place] % (Auto) 9.8, Eos % (Auto) 2.0, Baso % (Auto) 0.2, Absolute Neuts (auto) 2.6, Absolute Lymphs (auto) 2.19, Total Counted Not Reportable 12/23/18 06:58: Sodium 140, Potassium 3.9, Chloride 105, Carbon Dioxide 29.0, Anion Gap 6, BUN 25 H, Creatinine 0.70, Estim Creat Clear Calc 33.50, Est GFR (MDRD) Af Amer 106, Est GFR (MDRD) Non-Af 87, BUN/Creatinine Ratio 35.7 H, Glucose 108 H, Calcium 8.8, Total Bilirubin 0.50, AST 14 L, ALT 8 L, Alkaline Phosphatase 67, Total Protein 6.5, Albumin 3.5, Globulin 3.0, Albumin/Globulin Ratio 1.2 Active Medications Bisacodyl (Dulcolax) 10 mg RECTAL .PRN X 1 PRN PRN Reason: Constipation Buspirone HCl (Buspar) 5 mg PO TID PRN PRN Reason: anxiety/panic attack Last Admin: 12/23/18 11:48 Dose: 5 mg Documented by: Carbidopa/Levodopa (Sinemet) 1 tablet PO BID PRN PRN PRN Reason: tremors Carbidopa/Levodopa/Entacapone (Stalevo 200 Tablet) 1 tab PO 0730,1030,1330,1630 [facility] Last Admin: 12/23/18 13:49 Dose: 1 tab Documented by: Carbidopa/Levodopa/Entacapone (Stalevo 200 Tablet) 1 tab PO 1930,2230 [facility] Last Admin: 12/22/18 22:19 Dose: 1 tab Documented by: Enoxaparin Sodium (Lovenox) 40 mg SC DAILY@0600 [facility] Last Admin: 12/23/18 06:43 Dose: 40 mg Documented by: Magnesium Hydroxide (Milk Of Magnesia) 30 ml PO .PRN X 1 PRN PRN Reason: Constipation Melatonin (Melatonin) 10 mg PO QHS [facility] Last Admin: 12/22/18 19:41 Dose: 10 mg Documented by: Mirtazapine (Remeron) 45 mg PO QHS [facility] Last Admin: 12/22/18 19:40 Dose: 45 mg Documented by: Nitrofurantoin Macrocrystals (Macrobid) 100 mg PO BID [facility] Stop: 12/24/18 22:01 Last Admin: 12/23/18 10:34 Dose: 100 mg Documented by: Nutritional Formula (Lactose Free) (Ensure Enlive) 120 ml PO 4X/DAY [facility] Last Admin: 12/23/18 13:50 Dose: 120 ml Documented by: Pantoprazole Sodium (Protonix) 20 mg PO BREAKFAST [facility] Last Admin: 12/23/18 07:43 Dose: 20 mg Documented by: Paroxetine HCl (Paxil) 10 mg PO DAILY [facility] Last Admin: 12/23/18 10:32 Dose: 10 mg Documented by: Senna/Docusate Sodium (Senokot-S, Meghan-Colace) 2 tablet PO BID [facility] Last Admin: 12/23/18 10:41 Dose: 2 tablet Documented by: Code Visit Inpatient E&M: 88665 Subs Hosp L2
[2018-12-23 16:40] VITALS: O2SAT 98
[2018-12-23 21:50] VITALS: BP 113/62; PULSE 81; RESP 12; TEMP 36.9; O2SAT 98
[2018-12-23] MEDS: MELATONIN 10 MG TABLET PO (21:56)
[2018-12-23] MEDS: Mirtazapine 15 MG Tablet 45 MG PO (21:56)
[2018-12-24] MEDS: Enoxaparin 40 MG/0.4 ML Syringe SC (05:57)
[2018-12-24] MEDS: Carbidopa/Levodopa 25/100 Tablet PO (06:01)
[2018-12-24] MEDS: busPIRone 5 MG Tablet PO ×2 (07:53→19:35)
[2018-12-24] MEDS: Senna/Docusate Sodium 1 Tablet 2 TABLET PO ×2 (07:54→21:44)
[2018-12-24] MEDS: PARoxetine 10 MG Tablet PO (07:54)
[2018-12-24] MEDS: Pantoprazole Sodium 20 MG Tablet PO (07:54)
[2018-12-24] MEDS: Nitrofurantoin Macrocrystals 100 MG Capsule PO (07:54)
[2018-12-24] MEDS: Carbidopa/Levodopa/Entacapone 200 1 TAB PO ×6 (07:54→21:44)
[2018-12-24] MEDS: NON-FORMULARY (Acetaminophen [Acetaminophen Er] 650 MG) PO ×2 (07:55→21:46)
[2018-12-24 08:00] VITALS: BP 138/73; PULSE 81; RESP 16; TEMP 36.6; O2SAT 99
[2018-12-24 10:21] VITALS: O2SAT 98
--- NOTE | 2018-12-24 10:33 | PCM.PN.NEU ---
Subjective: Per nursing increase tremors noted to extremities, sinemet increased to 1 tablet bid prn. This am noted fine tremors to bilateral lower legs while resting in bed. Sinemet was given this am prior to assessment. Routine Stalevo continues. Patient having increased anxiety on 12/23/18, buspar was initiated prn by hospitalist. Denies feelings of anxiousness at this time. Denies MENESES, blurred or double vision, dizziness or lightheadedness. - Physical Exam General: Alert, Oriented x3, Cooperative HEENT: Atraumatic, PERRLA Oral: Moist Mucosa Neck: Supple, No JVD Lungs: Clear to auscultation, Normal air movement Cardiovascular: Regular rate, Regular Rhythm Abdomen: Bowel Sounds Present, Soft, Non Tender Extremities: No clubbing, No cyanosis, No edema Skin: - - echymotic to bilateral arms Neurological: Cranial nerves II-XII grossly intact, Deep Tendon Reflexes 2+/4 and Symmetrical, Motor Exam 5/5 strength throughout Psych/Mental Status: Normal Affect, Appropriate, Alert and oriented to time, place, person, mood and affect Vital Signs Temp Pulse Resp BP Pulse Ox 97.8 F 81 16 138/73 H 98 12/24/18 08:00 12/24/18 08:00 12/24/18 08:00 12/24/18 08:00 12/24/18 10:21 Oxygen Delivery Method Room Air Weight: 41.73 kg Body Mass Index (BMI) 18.6 Finger Stick Blood Glucose 119 Intake and Output for Last 24 Hours 12/22/18 12/23/18 12/24/18 23:59 23:59 23:59 Intake Total 240 / 240 Output Total 400 / 400 Balance -160 / -160 Medical Necessity - Tobacco Use Smoking Status: Former smoker - x 20 years 1 pack per 2 weeks cessation in Tobacco Use: Cigarettes Assessment/Plan All Active Problems (Last Updated 12/22/18 @ 16:35 by NOBLE SmithC) Chest pain (Acute) Stroke-like symptoms (Acute) The patient is a 73 year old F with PMH of Parkinson disease, depression, anxiety, insomnia and GERD, admitted to [facility] for debility secondary to parkinsons, for greater than 3 hours of therapy daily with the goal of returning back home at or near her prior level functional dependence. Patient presented to [facility] on 12/20/2018 for left sided weakness and facial droop. Patient had missed 3 doses of medication for parkinson disease on that day. Per daughter these symptoms has happened in past if missed doses of medication. Ct of brain unremarkable. On 12/21/2018 MRI of brain no acute or subacute infarct, ischemic infarct, or old lacunar ischemic infarcts. Small non-specific subcortical white matter T2 FLAIR hyperintensity focus in each frontal lobe. MRA of head and neck unremarkable. UA was obtained which showed Protein 15, Ketones 15, Occult blood 25, Nitrite positive, Leukocyte esterase 500, RBC 0-5, WBC 25-50, Bacteria 4+, Hyaline casts 5-10, and mucus 1+. Urine CX pending. Patient was started on Macrobid 100 mg BID, with last dose on 12/24/2018 at [facility]. Patient lives alone in a two story house, sleeps on first floor, bathing needs on second floor. Patient is independent with all ADLs, uses a cane or walker with transfers and mobility and drives short distances prior to this admission. Plan - PT for mobility - OT for ADLs - ST for cognition/speech - Analgesics as needed - Bowel protocol - Parkinson on Stalevo and Sinemet - Depression/anxiety on Paxil, Remeron, buspar - Insomnia on Remeron and melatonin - Gerd on Protonix - UA positive on Macrobid last dose on 12/24 at [facility], Urine CX e-coli >100,000. - GI/DVT prophylaxis on Protonix/Lovenox and knee high joel hose - Medical management per hospitalist-consult - Fall precautions - F/U with PCP and Neurology
--- NOTE | 2018-12-24 12:51 | NURSING ---
staff ambulated pt in hallway
--- NOTE | 2018-12-24 16:20 | PCM.PN.HOSP ---
Subjective: Patient does not have anxiety/panic attack. Tremors are well controlled. Patient looks pleasant and answers questions appropriately. Denies lower urinary tract symptoms, including burning micturition, increased frequency, urgency or suprapubic pain. Vitals/I&O's: Vital Signs Temp Pulse Resp BP Pulse Ox 97.8 F 81 16 138/73 H 98 12/24/18 08:00 12/24/18 08:00 12/24/18 08:00 12/24/18 08:00 12/24/18 10:21 Oxygen Delivery Method Room Air Weight: 91 lb 15.982 oz Body Mass Index (BMI) 18.6 Finger Stick Blood Glucose 119 Intake and Output for Last 24 Hours 12/22/18 12/23/18 12/24/18 23:59 23:59 23:59 Intake Total 240 / 240 Output Total 400 / 400 Balance -160 / -160 General: Alert, Oriented x3, Cooperative HEENT: Atraumatic, PERRLA, EOMI, Normocephalic Neck: Supple, No JVD, Negative Carotid Bruits Lungs: Clear to auscultation, Normal air movement, No rhonchi, No wheeze, No rales Cardiovascular: Regular rate, No murmurs Abdomen: Bowel Sounds Present, Soft, Non Tender Extremities: No edema, Capillary Refill Less than 3 Seconds Skin: No rashes, No breakdown Musculoskeletal: No Tenderness to Palpation of Joints or Extremities, Arthritic Changes Neurological: Cranial nerves II-XII grossly intact, Deep Tendon Reflexes 2+/4 and Symmetrical, Neuro grossly intact, - - Stiffness at major joints are much improved. Psych/Mental Status: Normal Affect, Appropriate Current Medications Bisacodyl (Dulcolax) 10 mg RECTAL .PRN X 1 PRN PRN Reason: Constipation Buspirone HCl (Buspar) 5 mg PO TID PRN PRN Reason: anxiety/panic attack Last Admin: 12/24/18 07:53 Dose: 5 mg Documented by: Carbidopa/Levodopa (Sinemet) 1 tablet PO BID PRN PRN PRN Reason: tremors Last Admin: 12/24/18 06:01 Dose: 1 tablet Documented by: Carbidopa/Levodopa/Entacapone (Stalevo 200 Tablet) 1 tab PO 0730,1030,1330,1630 [facility] Last Admin: 12/24/18 13:27 Dose: 1 tab Documented by: Carbidopa/Levodopa/Entacapone (Stalevo 200 Tablet) 1 tab PO 1930,2230 [facility] Last Admin: 12/23/18 22:37 Dose: 1 tab Documented by: Enoxaparin Sodium (Lovenox) 40 mg SC DAILY@0600 [facility] Last Admin: 12/24/18 05:57 Dose: 40 mg Documented by: Magnesium Hydroxide (Milk Of Magnesia) 30 ml PO .PRN X 1 PRN PRN Reason: Constipation Melatonin (Melatonin) 10 mg PO QHS [facility] Last Admin: 12/23/18 21:56 Dose: 10 mg Documented by: Mirtazapine (Remeron) 45 mg PO QHS [facility] Last Admin: 12/23/18 21:56 Dose: 45 mg Documented by: Nitrofurantoin Macrocrystals (Macrobid) 100 mg PO BID [facility] Stop: 12/24/18 22:01 Last Admin: 12/24/18 07:54 Dose: 100 mg Documented by: Non-Formulary Medication (Acetaminophen [Acetaminophen Er]) 650 mg PO Q8H PRN PRN PRN Reason: pain Last Admin: 12/24/18 07:55 Dose: 650 mg Documented by: Nutritional Formula (Lactose Free) (Ensure Enlive) 120 ml PO 4X/DAY [facility] Last Admin: 12/24/18 13:31 Dose: 120 ml Documented by: Pantoprazole Sodium (Protonix) 20 mg PO BREAKFAST [facility] Last Admin: 12/24/18 07:54 Dose: 20 mg Documented by: Paroxetine HCl (Paxil) 10 mg PO DAILY [facility] Last Admin: 12/24/18 07:54 Dose: 10 mg Documented by: Senna/Docusate Sodium (Senokot-S, Meghan-Colace) 2 tablet PO BID [facility] Last Admin: 12/24/18 07:54 Dose: 2 tablet Documented by: Medical Necessity - Tobacco Use Smoking Status: Former smoker - x 20 years 1 pack per 2 weeks cessation in Tobacco Use: Cigarettes Assessment/Plan All Active Problems (Last Updated 12/22/18 @ 16:35 by Andree Carpenter, BOX TOE BUFFER-C) Chest pain (Acute) Stroke-like symptoms (Acute) The patient is a 73 year old F with a significant history of Parkinson's disease who was admitted to acute rehab from acute hospital care for further management of physical disability secondary to Parkinson's disease. Patient was discharged after management of left-sided facial droop, left-sided heaviness/weakness after she missed her Parkinson's medicine. Acute stroke was ruled out with negative MRI brain and MRA head and neck. 1. Parkinson's disease exacerbation probably secondary to missed doses: Patient is admitted in acute rehab. Seen by neurologist. Her today panic attack most likely related to exacerbation of Parkinson's disease for which frequency of dose of Sinemet was increased by neurologist. Patient tremors, muscle stiffness and rigidity are well controlled. She is more awake and alert. Continue PT, OT speech and swallow evaluation and treatment. Patient has difficulty in swallowing solid food probably from oropharyngeal muscle weakness secondary to Parkinson's disease. A1c 5.6. Patient had echo reported as EF 60%, no regional wall motion abnormality. Normal LA, RA and RV. Moderate mitral annular calcification with trivial MR. Mild tricuspid insufficiency, RVSP 27 mmHg. 2. Asymptomatic bacteriuria: Patient denies new lower urinary tract symptoms but chronic symptoms of neurogenic bladder with retention and incontinence. UA shows 25-50 cells, LE 500, nitrite positive. Final urine culture shows E. coli more than 100,000. As per definition, urine culture more than 100 colonies from catheterized urine specimen with dark urine tract symptoms. Asymptomatic bacteriuria. Patient does not need antibiotic. UTI ruled out 3. Dyslipidemia: Lipid profile was done total cholesterol 203, LDL 133, HDL 56. Patient is allergic to atorvastatin/statin. Patient also has muscle weakness secondary to Parkinson's disease. Further discussion with family doctor regarding pros and cons of other hypolipidemic agents and follow-up myalgia/muscle weakness. Depression Remeron and Paxil continued Insomnia Melatonin continued GERD Omeprazole continued DVT prophylaxis Subcutaneous heparin Active Medications Bisacodyl (Dulcolax) 10 mg RECTAL .PRN X 1 PRN PRN Reason: Constipation Buspirone HCl (Buspar) 5 mg PO TID PRN PRN Reason: anxiety/panic attack Last Admin: 12/24/18 07:53 Dose: 5 mg Documented by: Carbidopa/Levodopa (Sinemet) 1 tablet PO BID PRN PRN PRN Reason: tremors Last Admin: 12/24/18 06:01 Dose: 1 tablet Documented by: Carbidopa/Levodopa/Entacapone (Stalevo 200 Tablet) 1 tab PO 0730,1030,1330,1630 [facility] Last Admin: 12/24/18 13:27 Dose: 1 tab Documented by: Carbidopa/Levodopa/Entacapone (Stalevo 200 Tablet) 1 tab PO 1930,2230 [facility] Last Admin: 12/23/18 22:37 Dose: 1 tab Documented by: Enoxaparin Sodium (Lovenox) 40 mg SC DAILY@0600 [facility] Last Admin: 12/24/18 05:57 Dose: 40 mg Documented by: Magnesium Hydroxide (Milk Of Magnesia) 30 ml PO .PRN X 1 PRN PRN Reason: Constipation Melatonin (Melatonin) 10 mg PO QHS [facility] Last Admin: 12/23/18 21:56 Dose: 10 mg Documented by: Mirtazapine (Remeron) 45 mg PO QHS [facility] Last Admin: 12/23/18 21:56 Dose: 45 mg Documented by: Nitrofurantoin Macrocrystals (Macrobid) 100 mg PO BID [facility] Stop: 12/24/18 22:01 Last Admin: 12/24/18 07:54 Dose: 100 mg Documented by: Non-Formulary Medication (Acetaminophen [Acetaminophen Er]) 650 mg PO Q8H PRN PRN PRN Reason: pain Last Admin: 12/24/18 07:55 Dose: 650 mg Documented by: Nutritional Formula (Lactose Free) (Ensure Enlive) 120 ml PO 4X/DAY [facility] Last Admin: 12/24/18 13:31 Dose: 120 ml Documented by: Pantoprazole Sodium (Protonix) 20 mg PO BREAKFAST [facility] Last Admin: 12/24/18 07:54 Dose: 20 mg Documented by: Paroxetine HCl (Paxil) 10 mg PO DAILY [facility] Last Admin: 12/24/18 07:54 Dose: 10 mg Documented by: Senna/Docusate Sodium (Senokot-S, Meghan-Colace) 2 tablet PO BID [facility] Last Admin: 12/24/18 07:54 Dose: 2 tablet Documented by: Laboratory Results 12/23/18 06:58: WBC 5.4, RBC 3.52 L, Hgb 10.5 L, Hct 32.0 L, MCV 90.9, MCH 29.8, MCHC 32.8, RDW 13.2, RDW Differential 43.8, Plt Count 278, MPV 10.0, Immature Gran % (Auto) 0.000, Neut % (Auto) 47.4, Lymph % (Auto) 40.6, [place] % (Auto) 9.8, Eos % (Auto) 2.0, Baso % (Auto) 0.2, Absolute Neuts (auto) 2.6, Absolute Lymphs (auto) 2.19, Total Counted Not Reportable 12/23/18 06:58: Sodium 140, Potassium 3.9, Chloride 105, Carbon Dioxide 29.0, Anion Gap 6, BUN 25 H, Creatinine 0.70, Estim Creat Clear Calc 33.50, Est GFR (MDRD) Af Amer 106, Est GFR (MDRD) Non-Af 87, BUN/Creatinine Ratio 35.7 H, Glucose 108 H, Calcium 8.8, Total Bilirubin 0.50, AST 14 L, ALT 8 L, Alkaline Phosphatase 67, Total Protein 6.5, Albumin 3.5, Globulin 3.0, Albumin/Globulin Ratio 1.2 Active Medications Bisacodyl (Dulcolax) 10 mg RECTAL .PRN X 1 PRN PRN Reason: Constipation Buspirone HCl (Buspar) 5 mg PO TID PRN PRN Reason: anxiety/panic attack Last Admin: 12/23/18 11:48 Dose: 5 mg Documented by: Carbidopa/Levodopa (Sinemet) 1 tablet PO BID PRN PRN PRN Reason: tremors Carbidopa/Levodopa/Entacapone (Stalevo 200 Tablet) 1 tab PO 0730,1030,1330,1630 [facility] Last Admin: 12/23/18 13:49 Dose: 1 tab Documented by: Carbidopa/Levodopa/Entacapone (Stalevo 200 Tablet) 1 tab PO 1930,2230 [facility] Last Admin: 12/22/18 22:19 Dose: 1 tab Documented by: Enoxaparin Sodium (Lovenox) 40 mg SC DAILY@0600 [facility] Last Admin: 12/23/18 06:43 Dose: 40 mg Documented by: Magnesium Hydroxide (Milk Of Magnesia) 30 ml PO .PRN X 1 PRN PRN Reason: Constipation Melatonin (Melatonin) 10 mg PO QHS [facility] Last Admin: 12/22/18 19:41 Dose: 10 mg Documented by: Mirtazapine (Remeron) 45 mg PO QHS [facility] Last Admin: 12/22/18 19:40 Dose: 45 mg Documented by: Nitrofurantoin Macrocrystals (Macrobid) 100 mg PO BID [facility] Stop: 12/24/18 22:01 Last Admin: 12/23/18 10:34 Dose: 100 mg Documented by: Nutritional Formula (Lactose Free) (Ensure Enlive) 120 ml PO 4X/DAY [facility] Last Admin: 12/23/18 13:50 Dose: 120 ml Documented by: Pantoprazole Sodium (Protonix) 20 mg PO BREAKFAST [facility] Last Admin: 12/23/18 07:43 Dose: 20 mg Documented by: Paroxetine HCl (Paxil) 10 mg PO DAILY [facility] Last Admin: 12/23/18 10:32 Dose: 10 mg Documented by: Senna/Docusate Sodium (Senokot-S, Meghan-Colace) 2 tablet PO BID [facility] Last Admin: 12/23/18 10:41 Dose: 2 tablet Documented by: Code Visit Inpatient E&M: [id number] Subs Hosp L2
--- NOTE | 2018-12-24 16:23 | NURSING ---
Per. Dr. Carrera no need for further course of macrobid for UTI to be finished today.
[2018-12-24 18:55] VITALS: BP 114/58; PULSE 97; RESP 16; TEMP 36.7; O2SAT 98
[2018-12-24] MEDS: MELATONIN 10 MG TABLET PO (21:44)
[2018-12-24] MEDS: Mirtazapine 15 MG Tablet 45 MG PO (21:44)
[2018-12-24 22:00] VITALS: PULSE 97; RESP 16
[2018-12-25] MEDS: Enoxaparin 40 MG/0.4 ML Syringe SC (05:40)
[2018-12-25] MEDS: busPIRone 5 MG Tablet PO ×3 (05:42→22:30)
[2018-12-25] MEDS: Carbidopa/Levodopa/Entacapone 200 1 TAB PO ×6 (06:58→22:30)
[2018-12-25 07:06] VITALS: BP 150/87; PULSE 97; RESP 18; TEMP 36.6; O2SAT 99
[2018-12-25] MEDS: Pantoprazole Sodium 20 MG Tablet PO (07:39)
[2018-12-25] MEDS: PARoxetine 10 MG Tablet PO (07:39)
[2018-12-25] MEDS: Senna/Docusate Sodium 1 Tablet 2 TABLET PO (07:40)
[2018-12-25] MEDS: Carbidopa/Levodopa 25/100 Tablet PO ×2 (08:14→20:52)
[2018-12-25] MEDS: Bisacodyl 10 MG Suppository RECTAL ×2 (11:21→12:04)
[2018-12-25 19:08] VITALS: BP 104/65; PULSE 100; RESP 20; TEMP 36.8; O2SAT 99
[2018-12-25] MEDS: Bisacodyl 5 MG Tablet PO (19:26)
[2018-12-25] MEDS: NON-FORMULARY (Acetaminophen [Acetaminophen Er] 650 MG) PO (22:30)
[2018-12-25] MEDS: MELATONIN 10 MG TABLET PO (22:30)
[2018-12-25] MEDS: Mirtazapine 15 MG Tablet 45 MG PO (22:30)
[2018-12-26] MEDS: Enoxaparin 40 MG/0.4 ML Syringe SC (04:54)
[2018-12-26] MEDS: Carbidopa/Levodopa/Entacapone 200 1 TAB PO ×6 (07:22→22:36)
[2018-12-26] MEDS: PARoxetine 10 MG Tablet PO (07:22)
[2018-12-26] MEDS: Pantoprazole Sodium 20 MG Tablet PO (07:22)
[2018-12-26] MEDS: Senna/Docusate Sodium 1 Tablet 2 TABLET PO ×2 (07:22→20:52)
[2018-12-26] MEDS: busPIRone 5 MG Tablet PO ×2 (07:28→14:04)
[2018-12-26 08:32] VITALS: BP 134/72; PULSE 86; RESP 16; TEMP 36.7; O2SAT 98
[2018-12-26] MEDS: Carbidopa/Levodopa 25/100 Tablet PO ×2 (11:43→20:51)
--- NOTE | 2018-12-26 15:05 | NURSING ---
offered ambulation multiple times today and pt refused.
[2018-12-26] MEDS: Bisacodyl 5 MG Tablet PO (16:23)
--- NOTE | 2018-12-26 16:40 | NURSING ---
up and ambulated around halls x3 laps with walker and min assist.
--- NOTE | 2018-12-26 16:49 | PCM.PN.HOSP ---
Subjective: Patient has severe constipation. Patient required manual defecation yesterday by nursing staff. Patient has severe parkinsonism probably bowel has slow transit time. On Dulcolax suppository, Dulcolax, MiraLAX, senna-S. Vitals/I&O's: Vital Signs Temp Pulse Resp BP Pulse Ox 98.0 F 86 16 134/72 H 98 12/26/18 08:32 12/26/18 08:32 12/26/18 08:32 12/26/18 08:32 12/26/18 08:32 Oxygen Delivery Method Room Air Weight: 91 lb 6.4 oz Body Mass Index (BMI) 18.6 Finger Stick Blood Glucose 119 Intake and Output for Last 24 Hours 12/24/18 12/25/18 12/26/18 23:59 23:59 23:59 Intake Total 240 / 240 240 / 240 Balance 240 / 240 240 / 240 General: Alert, Oriented x3, Cooperative HEENT: Atraumatic, PERRLA, EOMI, Normocephalic Neck: Supple, No JVD, Negative Carotid Bruits Lungs: Clear to auscultation, No rhonchi, No wheeze, No rales, Diminished Cardiovascular: Regular rate, Regular Rhythm, Normal S1, Normal S2, No murmurs Abdomen: Bowel Sounds Present, Soft, Non Tender, Non-Distended Extremities: No edema, Capillary Refill Less than 3 Seconds Skin: No rashes, No breakdown Musculoskeletal: No Tenderness to Palpation of Joints or Extremities Neurological: Cranial nerves II-XII grossly intact Psych/Mental Status: Normal Affect, Appropriate Current Medications Bisacodyl (Dulcolax) 10 mg RECTAL .PRN X 1 PRN PRN Reason: Constipation Last Admin: 12/25/18 12:04 Dose: 10 mg Documented by: Bisacodyl (Dulcolax) 5 mg PO DAILY PRN PRN PRN Reason: CONSTIPATION Buspirone HCl (Buspar) 5 mg PO TID PRN PRN Reason: anxiety/panic attack Last Admin: 12/26/18 14:04 Dose: 5 mg Documented by: Carbidopa/Levodopa (Sinemet) 1 tablet PO BID PRN PRN PRN Reason: tremors Last Admin: 12/26/18 11:43 Dose: 1 tablet Documented by: Carbidopa/Levodopa/Entacapone (Stalevo 200 Tablet) 1 tab PO 0730,1030,1330,1630 [facility] Last Admin: 12/26/18 16:23 Dose: 1 tab Documented by: Carbidopa/Levodopa/Entacapone (Stalevo 200 Tablet) 1 tab PO 1930,2230 [facility] Last Admin: 12/25/18 22:30 Dose: 1 tab Documented by: Enoxaparin Sodium (Lovenox) 40 mg SC DAILY@0600 [facility] Last Admin: 12/26/18 04:54 Dose: 40 mg Documented by: Magnesium Hydroxide (Milk Of Magnesia) 30 ml PO .PRN X 1 PRN PRN Reason: Constipation Melatonin (Melatonin) 10 mg PO QHS [facility] Last Admin: 12/25/18 22:30 Dose: 10 mg Documented by: Mirtazapine (Remeron) 45 mg PO QHS [facility] Last Admin: 12/25/18 22:30 Dose: 45 mg Documented by: Non-Formulary Medication (Acetaminophen [Acetaminophen Er]) 650 mg PO Q8H PRN PRN PRN Reason: pain Last Admin: 12/25/18 22:30 Dose: 650 mg Documented by: Nutritional Formula (Lactose Free) (Ensure Enlive) 120 ml PO 4X/DAY [facility] Last Admin: 12/26/18 16:26 Dose: Not Given Documented by: Pantoprazole Sodium (Protonix) 20 mg PO BREAKFAST [facility] Last Admin: 12/26/18 07:22 Dose: 20 mg Documented by: Paroxetine HCl (Paxil) 10 mg PO DAILY [facility] Last Admin: 12/26/18 07:22 Dose: 10 mg Documented by: Polyethylene Glycol (Miralax) 17 gm PO QHS [facility] Senna/Docusate Sodium (Senokot-S, Meghan-Colace) 2 tablet PO BID [facility] Last Admin: 12/26/18 07:22 Dose: 2 tablet Documented by: Medical Necessity - Tobacco Use Smoking Status: Former smoker - x 20 years 1 pack per 2 weeks cessation in Tobacco Use: Cigarettes Assessment/Plan All Active Problems (Last Updated 12/22/18 @ 16:35 by Andree Carpenter, BULLARD MACHINE OPERATOR-C) Chest pain (Acute) Stroke-like symptoms (Acute) The patient is a 73 year old F with a significant history of Parkinson's disease who was admitted to acute rehab from acute hospital care for further management of physical disability secondary to Parkinson's disease. Patient was discharged after management of left-sided facial droop, left-sided heaviness/weakness after she missed her Parkinson's medicine. Acute stroke was ruled out with negative MRI brain and MRA head and neck. 1. Parkinson's disease exacerbation probably secondary to missed doses: Patient is admitted in acute rehab. Seen by neurologist. Patient still gets tremors, muscle rigidity and stiffness with no periodicity. Patient is started shaking. Continue PT, OT speech and swallow evaluation and treatment. Patient has difficulty in swallowing solid food probably from oropharyngeal muscle weakness secondary to Parkinson's disease. A1c 5.6. Patient had echo reported as EF 60%, no regional wall motion abnormality. Normal LA, RA and RV. Moderate mitral annular calcification with trivial MR. Mild tricuspid insufficiency, RVSP 27 mmHg. 2. Asymptomatic bacteriuria: Patient denies new lower urinary tract symptoms but chronic symptoms of neurogenic bladder with retention and incontinence. UA shows 25-50 cells, LE 500, nitrite positive. Final urine culture shows E. coli more than 100,000. As per definition, urine culture more than 100 colonies from catheterized urine specimen with dark urine tract symptoms. Asymptomatic bacteriuria. Patient does not need antibiotic. UTI ruled out 3. Dyslipidemia: Lipid profile was done total cholesterol 203, LDL 133, HDL 56. Patient is allergic to atorvastatin/statin. Patient also has muscle weakness secondary to Parkinson's disease. Further discussion with family doctor regarding pros and cons of other hypolipidemic agents and follow-up myalgia/muscle weakness. 4. Severe constipation with slow transit time: Patient is on multiple oral laxatives, suppository. Advised soapsuds enema daily as needed. Depression Remeron and Paxil continued Insomnia Melatonin continued GERD Omeprazole continued DVT prophylaxis Subcutaneous heparin Active Medications Bisacodyl (Dulcolax) 10 mg RECTAL .PRN X 1 PRN PRN Reason: Constipation Last Admin: 12/25/18 12:04 Dose: 10 mg Documented by: Bisacodyl (Dulcolax) 5 mg PO DAILY PRN PRN PRN Reason: CONSTIPATION Buspirone HCl (Buspar) 5 mg PO TID PRN PRN Reason: anxiety/panic attack Last Admin: 12/26/18 14:04 Dose: 5 mg Documented by: Carbidopa/Levodopa (Sinemet) 1 tablet PO BID PRN PRN PRN Reason: tremors Last Admin: 12/26/18 11:43 Dose: 1 tablet Documented by: Carbidopa/Levodopa/Entacapone (Stalevo 200 Tablet) 1 tab PO 0730,1030,1330,1630 [facility] Last Admin: 12/26/18 16:23 Dose: 1 tab Documented by: Carbidopa/Levodopa/Entacapone (Stalevo 200 Tablet) 1 tab PO 1930,2230 [facility] Last Admin: 12/25/18 22:30 Dose: 1 tab Documented by: Enoxaparin Sodium (Lovenox) 40 mg SC DAILY@0600 [facility] Last Admin: 12/26/18 04:54 Dose: 40 mg Documented by: Magnesium Hydroxide (Milk Of Magnesia) 30 ml PO .PRN X 1 PRN PRN Reason: Constipation Melatonin (Melatonin) 10 mg PO QHS [facility] Last Admin: 12/25/18 22:30 Dose: 10 mg Documented by: Mirtazapine (Remeron) 45 mg PO QHS [facility] Last Admin: 12/25/18 22:30 Dose: 45 mg Documented by: Non-Formulary Medication (Acetaminophen [Acetaminophen Er]) 650 mg PO Q8H PRN PRN PRN Reason: pain Last Admin: 12/25/18 22:30 Dose: 650 mg Documented by: Nutritional Formula (Lactose Free) (Ensure Enlive) 120 ml PO 4X/DAY [facility] Last Admin: 12/26/18 16:26 Dose: Not Given Documented by: Pantoprazole Sodium (Protonix) 20 mg PO BREAKFAST [facility] Last Admin: 12/26/18 07:22 Dose: 20 mg Documented by: Paroxetine HCl (Paxil) 10 mg PO DAILY [facility] Last Admin: 12/26/18 07:22 Dose: 10 mg Documented by: Polyethylene Glycol (Miralax) 17 gm PO QHS [facility] Senna/Docusate Sodium (Senokot-S, Meghan-Colace) 2 tablet PO BID [facility] Last Admin: 12/26/18 07:22 Dose: 2 tablet Documented by: Code Visit Inpatient E&M: 17428 Subs Hosp L2
[2018-12-26 19:27] VITALS: BP 107/51; PULSE 83; RESP 18; TEMP 36.8; O2SAT 99
[2018-12-26] MEDS: Polyethylene Glycol 3350 17 GM PACKET PO (19:42)
[2018-12-26] MEDS: Mirtazapine 15 MG Tablet 45 MG PO (20:52)
[2018-12-26] MEDS: MELATONIN 10 MG TABLET PO (20:52)
--- NOTE | 2018-12-27 03:15 | NURSING ---
PT AWAKE AND WANTS TO TAKE A SHOWER. C/O ITCHING TO UPPER CHEST AND SHOULDERS-SKIN TO AREA APPEARS NORMAL. PT PT INFORMED OF THE TIME AND PT WANTS TO PROCEED STILL WITH SHOWER. PT CONTINUES WITH ITCHING AFTER SHOWER AND LOTION APPLIED TO ITCHY AREA. PT STATES SHE USES [facility] AT HOME FOR ITCHING.
--- NOTE | 2018-12-27 03:45 | NURSING ---
DR COULTER PAGED VIA [facility] SET RIDER AND INFORMED OF PT'S C/O OF ITCHING AND THAT SHE USES [facility] AT HOME. ORDERS WILL BE PROVIDED FOR PT.
[2018-12-27] MEDS: Loratadine 10 MG Tablet PO (04:02)
[2018-12-27] MEDS: Carbidopa/Levodopa 25/100 Tablet PO (05:06)
[2018-12-27] MEDS: Enoxaparin 40 MG/0.4 ML Syringe SC (05:09)
[2018-12-27] MEDS: busPIRone 5 MG Tablet PO ×2 (05:09→14:01)
--- NOTE | 2018-12-27 06:49 | NURSING ---
PT DENIES HAVING ANY ITCHING.
[2018-12-27 07:13] VITALS: BP 139/77; PULSE 96; RESP 18; TEMP 36.6; O2SAT 99
[2018-12-27] MEDS: Pantoprazole Sodium 20 MG Tablet PO (07:41)
[2018-12-27] MEDS: Senna/Docusate Sodium 1 Tablet 2 TABLET PO ×2 (07:41→22:24)
[2018-12-27] MEDS: PARoxetine 10 MG Tablet PO (07:42)
[2018-12-27] MEDS: Carbidopa/Levodopa/Entacapone 200 1 TAB PO ×6 (07:42→22:25)
--- NOTE | 2018-12-27 09:00 | PCM.PN.NEU ---
Subjective: Team meeting held. Per OT, stand by assist with ADLS and toileting and CGA for shower transfers. Per PT, able to complete 5 steps CGA, supervision with transfers and mod assist- supervision depending on tremors. Per ST, difficulty swallowing greater in am than afternoon especially with medication. Working on voice therapy. Per SW, re-team next week. Remeron will be d/c and Ativan standing order for insomnia ordered. - Physical Exam General: Alert, Oriented x3, Cooperative HEENT: Atraumatic, PERRLA Oral: Moist Mucosa Neck: Supple, No JVD Lungs: Clear to auscultation, Normal air movement Cardiovascular: Regular rate, Regular Rhythm Abdomen: Bowel Sounds Present, Soft, Non Tender Extremities: No clubbing, No cyanosis, No edema, - - intermittent tremors noted to RLE and to right hand. Rigidity noted Neurological: Cranial nerves II-XII grossly intact, Deep Tendon Reflexes 2+/4 and Symmetrical, Motor Exam 5/5 strength throughout Psych/Mental Status: Normal Affect, Appropriate, Alert and oriented to time, place, person, mood and affect Vital Signs Temp Pulse Resp BP Pulse Ox 97.9 F 96 18 139/77 H 99 12/27/18 07:13 12/27/18 07:13 12/27/18 07:13 12/27/18 07:13 12/27/18 07:13 Oxygen Delivery Method Room Air Weight: 41.458 kg Body Mass Index (BMI) 18.6 Finger Stick Blood Glucose 119 Intake and Output for Last 24 Hours 12/25/18 12/26/18 12/27/18 23:59 23:59 23:59 Intake Total 240 / 240 240 / 240 Balance 240 / 240 240 / 240 Medical Necessity - Tobacco Use Smoking Status: Former smoker - x 20 years 1 pack per 2 weeks cessation in Tobacco Use: Cigarettes Assessment/Plan All Active Problems (Last Updated 12/22/18 @ 16:35 by NOBLE SmithC) Chest pain (Acute) Stroke-like symptoms (Acute) The patient is a 73 year old F with PMH of Parkinson disease, depression, anxiety, insomnia and GERD, admitted to [facility] for debility secondary to parkinsons, for greater than 3 hours of therapy daily with the goal of returning back home at or near her prior level functional dependence. Patient presented to [facility] on 12/20/2018 for left sided weakness and facial droop. Patient had missed 3 doses of medication for parkinson disease on that day. Per daughter these symptoms has happened in past if missed doses of medication. Ct of brain unremarkable. On 12/21/2018 MRI of brain no acute or subacute infarct, ischemic infarct, or old lacunar ischemic infarcts. Small non-specific subcortical white matter T2 FLAIR hyperintensity focus in each frontal lobe. MRA of head and neck unremarkable. UA was obtained which showed Protein 15, Ketones 15, Occult blood 25, Nitrite positive, Leukocyte esterase 500, RBC 0-5, WBC 25-50, Bacteria 4+, Hyaline casts 5-10, and mucus 1+. Urine CX pending. Patient was started on Macrobid 100 mg BID, with last dose on 12/24/2018 at HS. Patient lives alone in a two story house, sleeps on first floor, bathing needs on second floor. Patient is independent with all ADLs, uses a cane or walker with transfers and mobility and drives short distances prior to this admission. Plan - PT for mobility - OT for ADLs - ST for cognition/speech - Analgesics as needed - Bowel protocol - Parkinson on Stalevo and Sinemet - Depression/anxiety on Paxil, buspar - Insomnia on melatonin and prn ativan - Gerd on Protonix - UA positive on Macrobid last dose on 12/24 at [facility], Urine CX e-coli >100,000. - GI/DVT prophylaxis on Protonix/Lovenox and knee high joel hose - Medical management per hospitalist-consult - Fall precautions - F/U with PCP and Neurology
--- NOTE | 2018-12-27 14:23 | CASEMGMT ---
Social Work IDT met with patient, daughter and son for Team meeting. Discussed Parkinson's disease and barriers it is causing for pt to participate in therapy some days. Pt experiences heightened anxiety when having tremors as it hinders her safety, which pt is aware of. Physician adjusted some medications. Pts assistance and progress with therapy has varied. Daughter concerned with pt returning home alone. Spoke at length multiple times with children discussing financial concerns, options, and provided many resources for discharge planning, i.e. Passport, Adult Day Care, private duty aides, CCN, transportation, [place] facilities, counseling and Parkinson's support group information. Children appreciative and will work on contacting agencies for a safe discharge plan. Will reteam next week to discuss progress. Will continue to follow for assistance in discharge planning. ARISTIDES Hankins
[2018-12-27 19:30] VITALS: BP 114/62; PULSE 102; RESP 18; TEMP 36.8; O2SAT 95
[2018-12-27 21:48] VITALS: PULSE 100; RESP 18; O2SAT 95
[2018-12-27] MEDS: LORazepam 0.5 MG Tablet PO (22:24)
[2018-12-27] MEDS: Polyethylene Glycol 3350 17 GM PACKET PO (22:24)
[2018-12-27] MEDS: MELATONIN 10 MG TABLET PO (22:24)
[2018-12-28] MEDS: Enoxaparin 40 MG/0.4 ML Syringe SC (05:12)
[2018-12-28 07:08] VITALS: BP 107/66; PULSE 93; RESP 16; TEMP 36.7; O2SAT 97
[2018-12-28] MEDS: Loratadine 10 MG Tablet PO (07:47)
[2018-12-28] MEDS: busPIRone 5 MG Tablet PO (07:47)
[2018-12-28] MEDS: Carbidopa/Levodopa/Entacapone 200 1 TAB PO ×6 (07:47→22:00)
[2018-12-28] MEDS: Pantoprazole Sodium 20 MG Tablet PO (07:47)
[2018-12-28] MEDS: Senna/Docusate Sodium 1 Tablet 2 TABLET PO ×2 (07:47→21:56)
[2018-12-28] MEDS: PARoxetine 10 MG Tablet PO (07:47)
--- NOTE | 2018-12-28 09:55 | PN.NEURO_ITS ---
Subjective: Per nursing no issues overnight. Per patient, she slept better last night and only awakened x 2 to use for bathroom. No tremors noted this am, per patient her tremors are better today. Denies further questions or concerns. - Physical Exam General: Alert, Oriented x3, Cooperative HEENT: Atraumatic Oral: Moist Mucosa Neck: Supple, No JVD Lungs: Clear to auscultation, Normal air movement Cardiovascular: Regular rate, Regular Rhythm Abdomen: Bowel Sounds Present, Soft, Non Tender Extremities: No clubbing, No cyanosis, No edema, - - rigidity/stiffness x 4 extremities Neurological: Cranial nerves II-XII grossly intact, Deep Tendon Reflexes 2+/4 and Symmetrical, Motor Exam 5/5 strength throughout Psych/Mental Status: Normal Affect, Appropriate, Alert and oriented to time, place, person, mood and affect Vital Signs Temp Pulse Resp BP Pulse Ox 98.1 F 93 16 107/66 97 12/28/18 07:08 12/28/18 07:08 12/28/18 07:08 12/28/18 07:08 12/28/18 07:08 Oxygen Delivery Method Room Air Weight: 41.458 kg Body Mass Index (BMI) 18.6 Finger Stick Blood Glucose 119 Intake and Output for Last 24 Hours 12/26/18 12/27/18 12/28/18 23:59 23:59 23:59 Intake Total 240 / 240 Balance 240 / 240 Medical Necessity - Tobacco Use Smoking Status: Former smoker - x 20 years 1 pack per 2 weeks cessation in Tobacco Use: Cigarettes Assessment/Plan All Active Problems (Last Updated 12/22/18 @ 16:35 by Andree Carpenter, RORO-C) Chest pain (Acute) Stroke-like symptoms (Acute) The patient is a 73 year old F with PMH of Parkinson disease, depression, anxiety, insomnia and GERD, admitted to [facility] for debility secondary to parkinsons, for greater than 3 hours of therapy daily with the goal of returning back home at or near her prior level functional dependence. Patient presented to [facility] on 12/20/2018 for left sided weakness and facial droop. Patient had missed 3 doses of medication for parkinson disease on that day. Per daughter these symptoms has happened in past if missed doses of medication. Ct of brain unremarkable. On 12/21/2018 MRI of brain no acute or subacute infarct, ischemic infarct, or old lacunar ischemic infarcts. Small non- specific subcortical white matter T2 FLAIR hyperintensity focus in each frontal lobe. MRA of head and neck unremarkable. UA was obtained which showed Protein 15, Ketones 15, Occult blood 25, Nitrite positive, Leukocyte esterase 500, RBC 0-5, WBC 25-50, Bacteria 4+, Hyaline casts 5-10, and mucus 1+. Urine CX pending. Patient was started on Macrobid 100 mg BID, with last dose on 12/24/2018 at [facility]. Patient lives alone in a two story house, sleeps on first floor, bathing needs on second floor. Patient is independent with all ADLs, uses a cane or walker with transfers and mobility and drives short distances prior to this admission. Plan - PT for mobility - OT for ADLs - ST for cognition/speech - Analgesics as needed - Bowel protocol - Parkinson on Stalevo and Sinemet - Depression/anxiety on Paxil, buspar - Insomnia on melatonin and prn ativan - Gerd on Protonix - UA positive on Macrobid last dose on 12/24 at HS, Urine CX e-coli >100,000. - GI/DVT prophylaxis on Protonix/Lovenox and knee high joel hose - Medical management per hospitalist-consult - Fall precautions - F/U with PCP and Neurology
--- NOTE | 2018-12-28 15:56 | PCM.PN.HOSP ---
Subjective: Patient seen and examined. She was having a lot of tremors of her lower extremities from the Parkinson's. Review of systems otherwise negative. Vitals reviewed. Vitals/I&O's: Vital Signs Temp Pulse Resp BP Pulse Ox 98.1 F 93 16 107/66 97 12/28/18 07:08 12/28/18 07:08 12/28/18 07:08 12/28/18 07:08 12/28/18 07:08 Oxygen Delivery Method Room Air Weight: 91 lb 6.388 oz Body Mass Index (BMI) 18.6 Finger Stick Blood Glucose 119 Intake and Output for Last 24 Hours 12/26/18 12/27/18 12/28/18 23:59 23:59 23:59 Intake Total 240 / 240 Balance 240 / 240 General: Alert, Oriented x3, Cooperative HEENT: Atraumatic, PERRLA, EOMI, Normocephalic Oral: Moist Mucosa Neck: Supple, No JVD, Negative Carotid Bruits Lungs: Clear to auscultation, Normal air movement Cardiovascular: Regular rate, Regular Rhythm, Normal S1, Normal S2, No murmurs Abdomen: Bowel Sounds Present, Soft, Non Tender, Non-Distended, No Hepato-splenomegaly Extremities: No clubbing, No cyanosis, No edema, Capillary Refill Less than 3 Seconds Skin: No rashes, No breakdown Musculoskeletal: No Tenderness to Palpation of Joints or Extremities Lymphatic: No Cervical, Supraclavicular, or Inguinal Adenopathy Neurological: Cranial nerves II-XII grossly intact, - - severe tremors of LEs Psych/Mental Status: Anxious, Alert and oriented to time, place, person, mood and affect Current Medications Bisacodyl (Dulcolax) 10 mg RECTAL .PRN X 1 PRN PRN Reason: Constipation Last Admin: 12/25/18 12:04 Dose: 10 mg Documented by: Bisacodyl (Dulcolax) 5 mg PO DAILY PRN PRN PRN Reason: CONSTIPATION Buspirone HCl (Buspar) 5 mg PO TID PRN PRN Reason: anxiety/panic attack Last Admin: 12/28/18 07:47 Dose: 5 mg Documented by: Carbidopa/Levodopa (Sinemet) 1 tablet PO BID PRN PRN PRN Reason: tremors Last Admin: 12/27/18 05:06 Dose: 1 tablet Documented by: Carbidopa/Levodopa/Entacapone (Stalevo 200 Tablet) 1 tab PO 0730,1030,1330,1630 [facility] Last Admin: 12/28/18 13:50 Dose: 1 tab Documented by: Carbidopa/Levodopa/Entacapone (Stalevo 200 Tablet) 1 tab PO 1930,2230 [facility] Last Admin: 12/27/18 22:25 Dose: 1 tab Documented by: Diphenhydramine HCl (Benadryl) 25 mg PO Q6H PRN PRN PRN Reason: ITCHING Enoxaparin Sodium (Lovenox) 40 mg SC DAILY@0600 [facility] Last Admin: 12/28/18 05:12 Dose: 40 mg Documented by: Loratadine (Claritin) 10 mg PO DAILY [facility] Last Admin: 12/28/18 07:47 Dose: 10 mg Documented by: Lorazepam (Ativan) 0.5 mg PO QHS PRN PRN PRN Reason: sleep/anxiety Last Admin: 12/27/18 22:24 Dose: 0.5 mg Documented by: Magnesium Hydroxide (Milk Of Magnesia) 30 ml PO .PRN X 1 PRN PRN Reason: Constipation Melatonin (Melatonin) 10 mg PO QHS [facility] Last Admin: 12/27/18 22:24 Dose: 10 mg Documented by: Non-Formulary Medication (Acetaminophen [Acetaminophen Er]) 650 mg PO Q8H PRN PRN PRN Reason: pain Last Admin: 12/25/18 22:30 Dose: 650 mg Documented by: Nutritional Formula (Lactose Free) (Ensure Enlive) 120 ml PO 4X/DAY [facility] Last Admin: 12/28/18 13:50 Dose: 120 ml Documented by: Pantoprazole Sodium (Protonix) 20 mg PO BREAKFAST [facility] Last Admin: 12/28/18 07:47 Dose: 20 mg Documented by: Paroxetine HCl (Paxil) 10 mg PO DAILY [facility] Last Admin: 12/28/18 07:47 Dose: 10 mg Documented by: Polyethylene Glycol (Miralax) 17 gm PO QHS [facility] Last Admin: 12/27/18 22:24 Dose: 17 gm Documented by: Senna/Docusate Sodium (Senokot-S, Meghan-Colace) 2 tablet PO BID [facility] Last Admin: 12/28/18 07:47 Dose: 2 tablet Documented by: Medical Necessity - Tobacco Use Smoking Status: Former smoker - x 20 years 1 pack per 2 weeks cessation in Tobacco Use: Cigarettes Assessment/Plan All Active Problems (Last Updated 12/22/18 @ 16:35 by Andree Carpenter, FUNCTIONAL CONSULTANT-C) Chest pain (Acute) Stroke-like symptoms (Acute) 1. Parkinson's disease with exacerbation due to missed doses currently having severe tremors of LEs PT/OT on board; speech therapy on board neurology on board on Sinemet and Stalevo (carbidopa/levodopa/entacapone) 2. Asymptomatic bacteriuria: stable. no antibiotic indicated 3. Hyperlipidemia: allergic to statin. To follow up with PCP. 4. Slow transit constipation: on dulcolax and MiraLAX as well as Senokot. 5. Depression: On Paxil and Remeron. 6. Insomnia on melatonin. 7. GERD: On pantoprazole. DVT Prophylaxis: Lovenox Code Visit Inpatient E&M: 15404 Subs Hosp L2
[2018-12-28 19:00] VITALS: BP 127/68; PULSE 83; RESP 20; TEMP 37.2; O2SAT 95
[2018-12-28 19:44] VITALS: PULSE 83; RESP 18; O2SAT 95
--- NOTE | 2018-12-28 20:15 | NURSING ---
Pt ambulated with staff around unit. Gait belt in place and wheeled walker used.
[2018-12-28] MEDS: LORazepam 0.5 MG Tablet PO (21:55)
[2018-12-28] MEDS: Polyethylene Glycol 3350 17 GM PACKET PO (21:56)
[2018-12-28] MEDS: MELATONIN 10 MG TABLET PO (21:56)
[2018-12-29] MEDS: Enoxaparin 40 MG/0.4 ML Syringe SC (06:13)
[2018-12-29 07:12] VITALS: BP 113/62; PULSE 87; RESP 16; TEMP 36.6; O2SAT 98
[2018-12-29] MEDS: Pantoprazole Sodium 20 MG Tablet PO (07:30)
[2018-12-29] MEDS: Carbidopa/Levodopa/Entacapone 200 1 TAB PO ×6 (07:30→22:11)
[2018-12-29] MEDS: Senna/Docusate Sodium 1 Tablet 2 TABLET PO ×2 (08:34→22:11)
[2018-12-29] MEDS: Bisacodyl 5 MG Tablet PO (08:34)
[2018-12-29] MEDS: Loratadine 10 MG Tablet PO (08:34)
[2018-12-29] MEDS: PARoxetine 10 MG Tablet PO (08:34)
--- NOTE | 2018-12-29 09:10 | PN.NEURO_ITS ---
Subjective: Per nursing no issues overnight. Per patient resting better at night, did get up at least 2 times for bathroom. No tremors noted at this time sitting up in chair. Per patient, she did have some tremors this am to her hands and legs, but did not last long. Denies further questions or concerns. - Physical Exam General: Alert, Oriented x3, Cooperative HEENT: Atraumatic, PERRLA Oral: Moist Mucosa Neck: Supple, No JVD Lungs: Clear to auscultation, Normal air movement Cardiovascular: Regular rate, Regular Rhythm Abdomen: Bowel Sounds Present, Soft, Non Tender Extremities: No clubbing, No cyanosis, No edema, - - rigidity/stiffness noted to extremities Neurological: Cranial nerves II-XII grossly intact, Deep Tendon Reflexes 2+/4 and Symmetrical, Motor Exam 5/5 strength throughout Psych/Mental Status: Normal Affect, Appropriate, Alert and oriented to time, place, person, mood and affect Vital Signs Temp Pulse Resp BP Pulse Ox 97.9 F 87 16 113/62 98 12/29/18 07:12 12/29/18 07:12 12/29/18 07:12 12/29/18 07:12 12/29/18 07:12 Oxygen Delivery Method Room Air Weight: 42.3 kg Body Mass Index (BMI) 18.6 Finger Stick Blood Glucose 119 Intake and Output for Last 24 Hours 12/27/18 12/28/18 12/29/18 23:59 23:59 23:59 Intake Total 260 / 260 Balance 260 / 260 Medical Necessity - Tobacco Use Smoking Status: Former smoker - x 20 years 1 pack per 2 weeks cessation in Tobacco Use: Cigarettes Assessment/Plan All Active Problems (Last Updated 12/22/18 @ 16:35 by Andree Carpenter, RORO-C) Chest pain (Acute) Stroke-like symptoms (Acute) The patient is a 73 year old F with PMH of Parkinson disease, depression, anxiety, insomnia and GERD, admitted to [facility] for debility secondary to parkinsons, for greater than 3 hours of therapy daily with the goal of returning back home at or near her prior level functional dependence. Patient presented to [facility] on 12/20/2018 for left sided weakness and facial droop. Patient had missed 3 doses of medication for parkinson disease on that day. Per daughter these symptoms has happened in past if missed doses of medication. Ct of brain unremarkable. On 12/21/2018 MRI of brain no acute or subacute infarct, ischemic infarct, or old lacunar ischemic infarcts. Small non- specific subcortical white matter T2 FLAIR hyperintensity focus in each frontal lobe. MRA of head and neck unremarkable. UA was obtained which showed Protein 15, Ketones 15, Occult blood 25, Nitrite positive, Leukocyte esterase 500, RBC 0-5, WBC 25-50, Bacteria 4+, Hyaline casts 5-10, and mucus 1+. Urine CX pending. Patient was started on Macrobid 100 mg BID, with last dose on 12/24/2018 at HS. Patient lives alone in a two story house, sleeps on first floor, bathing needs on second floor. Patient is independent with all ADLs, uses a cane or walker with transfers and mobility and drives short distances prior to this admission. Plan - PT for mobility - OT for ADLs - ST for cognition/speech - Analgesics as needed - Bowel protocol - Parkinson on Stalevo and Sinemet - Depression/anxiety on Paxil, buspar - Insomnia on melatonin and prn ativan - Gerd on Protonix - UA positive on Macrobid last dose on 12/24 at HS, Urine CX e-coli >100,000. - GI/DVT prophylaxis on Protonix/Lovenox and knee high joel hose - Medical management per hospitalist-consult - Fall precautions - F/U with PCP and Neurology
[2018-12-29] MEDS: busPIRone 5 MG Tablet PO ×2 (10:12→16:46)
[2018-12-29] MEDS: Carbidopa/Levodopa 25/100 Tablet PO ×2 (11:57→18:26)
[2018-12-29 19:34] VITALS: BP 102/65; PULSE 97; RESP 18; TEMP 36.9; O2SAT 96
[2018-12-29] MEDS: NON-FORMULARY (Acetaminophen [Acetaminophen Er] 650 MG) PO (20:56)
[2018-12-29 21:15] VITALS: PULSE 87; RESP 18; O2SAT 97
[2018-12-29] MEDS: Polyethylene Glycol 3350 17 GM PACKET PO (22:10)
[2018-12-29] MEDS: LORazepam 0.5 MG Tablet PO (22:10)
[2018-12-29] MEDS: MELATONIN 10 MG TABLET PO (22:10)
[2018-12-30] MEDS: Enoxaparin 40 MG/0.4 ML Syringe SC (05:29)
[2018-12-30] MEDS: Loratadine 10 MG Tablet PO (07:40)
[2018-12-30] MEDS: busPIRone 5 MG Tablet PO ×2 (07:40→17:12)
[2018-12-30] MEDS: Pantoprazole Sodium 20 MG Tablet PO (07:40)
[2018-12-30] MEDS: Carbidopa/Levodopa/Entacapone 200 1 TAB PO ×6 (07:40→22:16)
--- NOTE | 2018-12-30 08:45 | PCM.PN.NEU ---
Subjective: Fine motor tremors noted during exam to right hand. Per patient is sleeping better at night. per nursing, tremors increase throughout the day. PRN Sinemet 25/100 mg will be scheduled 3x/day. Denies further questions or concerns. - Physical Exam General: Alert, Oriented x3, Cooperative HEENT: Atraumatic, PERRLA Oral: Moist Mucosa Neck: Supple, No JVD Lungs: Clear to auscultation, Normal air movement Cardiovascular: Regular rate, Regular Rhythm Abdomen: Bowel Sounds Present, Soft, Non Tender Extremities: No clubbing, No cyanosis, No edema, - - fine tremors noted to right hand at rest Musculoskeletal: - - rigidity/stiffness x 4 extremities Neurological: Cranial nerves II-XII grossly intact, Deep Tendon Reflexes 2+/4 and Symmetrical, Motor Exam 5/5 strength throughout Psych/Mental Status: Normal Affect, Appropriate, Alert and oriented to time, place, person, mood and affect Vital Signs Temp Pulse Resp BP Pulse Ox 98.4 F 87 18 102/65 97 12/29/18 19:34 12/29/18 21:15 12/29/18 21:15 12/29/18 19:34 12/29/18 21:15 Oxygen Delivery Method Room Air Weight: 42.3 kg Body Mass Index (BMI) 18.6 Finger Stick Blood Glucose 119 Intake and Output for Last 24 Hours 12/28/18 12/29/18 12/30/18 23:59 23:59 23:59 Intake Total 260 / 260 Balance 260 / 260 Medical Necessity - Tobacco Use Smoking Status: Former smoker - x 20 years 1 pack per 2 weeks cessation in Tobacco Use: Cigarettes Assessment/Plan All Active Problems (Last Updated 12/22/18 @ 16:35 by Andree Carpenter, DISTRIBUTION SUPERINTENDENT-C) Chest pain (Acute) Stroke-like symptoms (Acute) The patient is a 73 year old F with PMH of Parkinson disease, depression, anxiety, insomnia and GERD, admitted to [facility] for debility secondary to parkinsons, for greater than 3 hours of therapy daily with the goal of returning back home at or near her prior level functional dependence. Patient presented to [facility] on 12/20/2018 for left sided weakness and facial droop. Patient had missed 3 doses of medication for parkinson disease on that day. Per daughter these symptoms has happened in past if missed doses of medication. Ct of brain unremarkable. On 12/21/2018 MRI of brain no acute or subacute infarct, ischemic infarct, or old lacunar ischemic infarcts. Small non-specific subcortical white matter T2 FLAIR hyperintensity focus in each frontal lobe. MRA of head and neck unremarkable. UA was obtained which showed Protein 15, Ketones 15, Occult blood 25, Nitrite positive, Leukocyte esterase 500, RBC 0-5, WBC 25-50, Bacteria 4+, Hyaline casts 5-10, and mucus 1+. Urine CX pending. Patient was started on Macrobid 100 mg BID, with last dose on 12/24/2018 at HS. Patient lives alone in a two story house, sleeps on first floor, bathing needs on second floor. Patient is independent with all ADLs, uses a cane or walker with transfers and mobility and drives short distances prior to this admission. Plan - PT for mobility - OT for ADLs - ST for cognition/speech - Analgesics as needed - Bowel protocol - Parkinson on Stalevo and Sinemet - Depression/anxiety on Paxil, buspar - Insomnia on melatonin and prn ativan - Gerd on Protonix - UA positive on Macrobid last dose on 12/24 at HS, Urine CX e-coli >100,000. - GI/DVT prophylaxis on Protonix/Lovenox and knee high joel hose - Medical management per hospitalist-consult - Fall precautions - F/U with PCP and Neurology
[2018-12-30] MEDS: PARoxetine 10 MG Tablet PO (08:49)
[2018-12-30] MEDS: Carbidopa/Levodopa 25/100 Tablet PO ×3 (08:49→20:38)
[2018-12-30] MEDS: Senna/Docusate Sodium 1 Tablet 2 TABLET PO ×2 (08:49→20:38)
[2018-12-30 08:58] VITALS: BP 135/72; PULSE 76; RESP 18; TEMP 36.8; O2SAT 98
--- NOTE | 2018-12-30 14:07 | PCM.PN.HOSP ---
Subjective: Patient seen and examined. She has no complaints. Review of systems otherwise negative. Vitals reviewed. Vitals/I&O's: Vital Signs Temp Pulse Resp BP Pulse Ox 98.2 F 76 18 135/72 H 98 12/30/18 08:58 12/30/18 08:58 12/30/18 08:58 12/30/18 08:58 12/30/18 08:58 Oxygen Delivery Method Room Air Weight: 93 lb 4.089 oz Body Mass Index (BMI) 18.6 Finger Stick Blood Glucose 119 Intake and Output for Last 24 Hours 12/28/18 12/29/18 12/30/18 23:59 23:59 23:59 Intake Total 260 / 260 220 / 220 Balance 260 / 260 220 / 220 General: Alert, Oriented x3, Cooperative HEENT: Atraumatic, PERRLA, EOMI, Normocephalic Oral: Moist Mucosa Neck: Supple, No JVD, Negative Carotid Bruits Lungs: Clear to auscultation, Normal air movement Cardiovascular: Regular rate, Regular Rhythm, Normal S1, Normal S2, No murmurs Abdomen: Bowel Sounds Present, Soft, Non Tender, Non-Distended, No Hepato-splenomegaly Extremities: No clubbing, No cyanosis, No edema, Capillary Refill Less than 3 Seconds Skin: No rashes, No breakdown Musculoskeletal: No Tenderness to Palpation of Joints or Extremities Lymphatic: No Cervical, Supraclavicular, or Inguinal Adenopathy Neurological: Cranial nerves II-XII grossly intact, - - severe tremors of LEs Psych/Mental Status: Anxious, Alert and oriented to time, place, person, mood and affect Current Medications Bisacodyl (Dulcolax) 10 mg RECTAL .PRN X 1 PRN PRN Reason: Constipation Last Admin: 12/25/18 12:04 Dose: 10 mg Documented by: Bisacodyl (Dulcolax) 5 mg PO DAILY PRN PRN PRN Reason: CONSTIPATION Last Admin: 12/29/18 08:34 Dose: 5 mg Documented by: Buspirone HCl (Buspar) 5 mg PO TID PRN PRN Reason: anxiety/panic attack Last Admin: 12/30/18 07:40 Dose: 5 mg Documented by: Carbidopa/Levodopa (Sinemet) 1 tablet PO 0830,1430,2030 [facility] Carbidopa/Levodopa/Entacapone (Stalevo 200 Tablet) 1 tab PO 0730,1030,1330,1630 [facility] Last Admin: 12/30/18 13:41 Dose: 1 tab Documented by: Carbidopa/Levodopa/Entacapone (Stalevo 200 Tablet) 1 tab PO 1930,2230 [facility] Last Admin: 12/29/18 22:11 Dose: 1 tab Documented by: Diphenhydramine HCl (Benadryl) 25 mg PO Q6H PRN PRN PRN Reason: ITCHING Enoxaparin Sodium (Lovenox) 40 mg SC DAILY@0600 [facility] Last Admin: 12/30/18 05:29 Dose: 40 mg Documented by: Loratadine (Claritin) 10 mg PO DAILY [facility] Last Admin: 12/30/18 07:40 Dose: 10 mg Documented by: Lorazepam (Ativan) 0.5 mg PO QHS PRN PRN PRN Reason: sleep/anxiety Last Admin: 12/29/18 22:10 Dose: 0.5 mg Documented by: Magnesium Hydroxide (Milk Of Magnesia) 30 ml PO .PRN X 1 PRN PRN Reason: Constipation Melatonin (Melatonin) 10 mg PO QHS [facility] Last Admin: 12/29/18 22:10 Dose: 10 mg Documented by: Non-Formulary Medication (Acetaminophen [Acetaminophen Er]) 650 mg PO Q8H PRN PRN PRN Reason: pain Last Admin: 12/29/18 20:56 Dose: 650 mg Documented by: Nutritional Formula (Lactose Free) (Ensure Enlive) 120 ml PO 4X/DAY [facility] Last Admin: 12/30/18 13:41 Dose: Not Given Documented by: Pantoprazole Sodium (Protonix) 20 mg PO BREAKFAST [facility] Last Admin: 12/30/18 07:40 Dose: 20 mg Documented by: Paroxetine HCl (Paxil) 10 mg PO DAILY [facility] Last Admin: 12/30/18 08:49 Dose: 10 mg Documented by: Polyethylene Glycol (Miralax) 17 gm PO QHS [facility] Last Admin: 12/29/18 22:10 Dose: 17 gm Documented by: Senna/Docusate Sodium (Senokot-S, Meghan-Colace) 2 tablet PO BID [facility] Last Admin: 12/30/18 08:49 Dose: 2 tablet Documented by: Medical Necessity - Tobacco Use Smoking Status: Former smoker - x 20 years 1 pack per 2 weeks cessation in Tobacco Use: Cigarettes Assessment/Plan All Active Problems (Last Updated 12/22/18 @ 16:35 by BRYANNA Smith) Chest pain (Acute) Stroke-like symptoms (Acute) 1. Parkinson's disease with exacerbation due to missed doses tremors have improved; PT/OT on board; speech therapy on board neurology on board on Sinemet and Stalevo (carbidopa/levodopa/entacapone). Sinement now scheduled dosing instead or prn, in addition to scheduled Stalevo. This has helped with tremors 2. Asymptomatic bacteriuria: stable. no antibiotic indicated 3. Hyperlipidemia: allergic to statin. To follow up with PCP. 4. Slow transit constipation: on dulcolax and MiraLAX as well as Senokot. 5. Depression: On Paxil and Remeron. 6. Insomnia on melatonin. 7. GERD: On pantoprazole. DVT Prophylaxis: Lovenox Code Visit Inpatient E&M: 37586 Subs Hosp L2
[2018-12-30 19:05] VITALS: BP 103/48; PULSE 98; RESP 16; TEMP 36.7; O2SAT 98
[2018-12-30] MEDS: LORazepam 0.5 MG Tablet PO (20:04)
[2018-12-30] MEDS: Polyethylene Glycol 3350 17 GM PACKET PO (20:37)
[2018-12-30] MEDS: MELATONIN 10 MG TABLET PO (20:38)
[2018-12-31] MEDS: Enoxaparin 40 MG/0.4 ML Syringe SC (05:08)
[2018-12-31] MEDS: busPIRone 5 MG Tablet PO ×3 (05:14→19:28)
[2018-12-31 07:00] VITALS: BP 135/72; PULSE 85; RESP 18; TEMP 36.4; O2SAT 99
[2018-12-31] MEDS: Carbidopa/Levodopa/Entacapone 200 1 TAB PO ×6 (07:36→22:33)
[2018-12-31] MEDS: Senna/Docusate Sodium 1 Tablet 2 TABLET PO ×2 (07:36→22:33)
[2018-12-31] MEDS: Pantoprazole Sodium 20 MG Tablet PO (07:37)
[2018-12-31] MEDS: PARoxetine 10 MG Tablet PO (07:37)
[2018-12-31] MEDS: Loratadine 10 MG Tablet PO (07:37)
--- NOTE | 2018-12-31 07:37 | PN.NEURO_ITS ---
Subjective: Per nursing no issues overnight. Per therapies scheduled sinemet has helped with tremors during therapy. Patient voiced that her tremors have decreased. Denies further questions or concerns. - Physical Exam General: Alert, Oriented x3, Cooperative HEENT: Atraumatic, PERRLA Oral: Moist Mucosa Neck: Supple, No JVD Lungs: Clear to auscultation, Normal air movement Cardiovascular: Regular rate, Regular Rhythm Abdomen: Bowel Sounds Present, Soft, Non Tender Extremities: No clubbing, No cyanosis, No edema Neurological: Cranial nerves II-XII grossly intact, Deep Tendon Reflexes 2+/4 and Symmetrical, Motor Exam 5/5 strength throughout Psych/Mental Status: Normal Affect, Appropriate, Alert and oriented to time, place, person, mood and affect Vital Signs Temp Pulse Resp BP Pulse Ox 98.0 F 98 16 103/48 L 98 12/30/18 19:05 12/30/18 19:05 12/30/18 19:05 12/30/18 19:05 12/30/18 19:05 Oxygen Delivery Method Room Air Weight: 41.277 kg Body Mass Index (BMI) 18.6 Finger Stick Blood Glucose 119 Intake and Output for Last 24 Hours 12/29/18 12/30/18 12/31/18 23:59 23:59 23:59 Intake Total 220 / 220 Balance 220 / 220 Medical Necessity - Tobacco Use Smoking Status: Former smoker - x 20 years 1 pack per 2 weeks cessation in Tobacco Use: Cigarettes Assessment/Plan All Active Problems (Last Updated 12/22/18 @ 16:35 by Andree Carpenter, HEALTH SPA MANAGER-C) Chest pain (Acute) Stroke-like symptoms (Acute) The patient is a 73 year old F with PMH of Parkinson disease, depression, anxiety, insomnia and GERD, admitted to [facility] for debility secondary to parkinsons, for greater than 3 hours of therapy daily with the goal of returning back home at or near her prior level functional dependence. Patient presented to [facility] on 12/20/2018 for left sided weakness and facial droop. Patient had missed 3 doses of medication for parkinson disease on that day. Per daughter these symptoms has happened in past if missed doses of medication. Ct of brain unremarkable. On 12/21/2018 MRI of brain no acute or subacute infarct, ischemic infarct, or old lacunar ischemic infarcts. Small non- specific subcortical white matter T2 FLAIR hyperintensity focus in each frontal lobe. MRA of head and neck unremarkable. UA was obtained which showed Protein 15, Ketones 15, Occult blood 25, Nitrite positive, Leukocyte esterase 500, RBC 0-5, WBC 25-50, Bacteria 4+, Hyaline casts 5-10, and mucus 1+. Urine CX pending. Patient was started on Macrobid 100 mg BID, with last dose on 12/24/2018 at HS. Patient lives alone in a two story house, sleeps on first floor, bathing needs on second floor. Patient is independent with all ADLs, uses a cane or walker with transfers and mobility and drives short distances prior to this admission. Plan - PT for mobility - OT for ADLs - ST for cognition/speech - Analgesics as needed - Bowel protocol - Parkinson on Stalevo and Sinemet - Depression/anxiety on Paxil, buspar - Insomnia on melatonin and prn ativan - Gerd on Protonix - UA positive on Macrobid last dose on 12/24 at HS, Urine CX e-coli >100,000. - GI/DVT prophylaxis on Protonix/Lovenox and knee high joel hose - Medical management per hospitalist-consult - Fall precautions - F/U with PCP and Neurology
[2018-12-31] MEDS: Carbidopa/Levodopa 25/100 Tablet PO ×3 (08:39→20:40)
[2018-12-31 08:45] VITALS: BP 120/67; PULSE 86
[2018-12-31] MEDS: NON-FORMULARY (Acetaminophen [Acetaminophen Er] 650 MG) PO (10:43)
[2018-12-31 19:42] VITALS: BP 94/52; PULSE 100; RESP 18; TEMP 36.7; O2SAT 100
[2018-12-31] MEDS: MELATONIN 10 MG TABLET PO (20:41)
[2018-12-31] MEDS: LORazepam 0.5 MG Tablet PO (20:41)
[2018-12-31] MEDS: Polyethylene Glycol 3350 17 GM PACKET PO (22:33)
[2019-01-01] MEDS: Enoxaparin 40 MG/0.4 ML Syringe SC (05:37)
[2019-01-01] MEDS: Carbidopa/Levodopa/Entacapone 200 1 TAB PO ×6 (07:55→22:24)
[2019-01-01] MEDS: Loratadine 10 MG Tablet PO (07:55)
[2019-01-01] MEDS: Pantoprazole Sodium 20 MG Tablet PO (07:55)
[2019-01-01] MEDS: PARoxetine 10 MG Tablet PO (07:56)
[2019-01-01] MEDS: NON-FORMULARY (Acetaminophen [Acetaminophen Er] 650 MG) PO (07:59)
[2019-01-01] MEDS: busPIRone 5 MG Tablet PO ×2 (08:01→16:27)
[2019-01-01 08:15] VITALS: BP 142/79; PULSE 84; RESP 16; TEMP 36.3; O2SAT 98
[2019-01-01] MEDS: Carbidopa/Levodopa 25/100 Tablet PO ×3 (08:38→20:46)
--- NOTE | 2019-01-01 13:13 | PCM.PN.HOSP ---
Subjective: Patient seen and examined. She has no complaints. Tremors have improved. Daughter and son in law were by her bedside. Daughter expressed concern about patient living alone she did not think she could take care of herself. Daughter stated that her brother is a power of civil litigation attorney. Patient wishes to maintain her independence and does not want to go to a residential. However according to daughter and son-in-law, 1 patient's tremors get very bad, patient is agreeable to a residential but when she gets better she wants to stay home. Hospitalist asked patient again with her wishes when patient stated that she wants to go home. Hospitalist informed family that they will need to sit down and talk with patient says that he had goals of care and what patient's wishes could be established with the wound of the way forward as patient kept vacillating between residential and going home. Vitals/I&O's: Vital Signs Temp Pulse Resp BP Pulse Ox 97.3 F L 84 16 142/79 H 98 01/01/19 08:15 01/01/19 08:15 01/01/19 08:15 01/01/19 08:15 01/01/19 08:15 Oxygen Delivery Method Room Air Weight: 91 lb 3.2 oz Body Mass Index (BMI) 18.6 Finger Stick Blood Glucose 119 Intake and Output for Last 24 Hours 12/30/18 12/31/18 01/01/19 23:59 23:59 23:59 Intake Total 220 / 220 240 / 240 Balance 220 / 220 240 / 240 General: Alert, Oriented x3, Cooperative HEENT: Atraumatic, PERRLA, EOMI, Normocephalic Oral: Moist Mucosa Neck: Supple, No JVD, Negative Carotid Bruits Lungs: Clear to auscultation, Normal air movement Cardiovascular: Regular rate, Regular Rhythm, Normal S1, Normal S2, No murmurs Abdomen: Bowel Sounds Present, Soft, Non Tender, Non-Distended, No Hepato-splenomegaly Extremities: No clubbing, No cyanosis, No edema, Capillary Refill Less than 3 Seconds Skin: No rashes, No breakdown Musculoskeletal: No Tenderness to Palpation of Joints or Extremities Lymphatic: No Cervical, Supraclavicular, or Inguinal Adenopathy Neurological: Cranial nerves II-XII grossly intact, - - severe tremors of LEs Psych/Mental Status: Anxious, Alert and oriented to time, place, person, mood and affect Current Medications Bisacodyl (Dulcolax) 10 mg RECTAL .PRN X 1 PRN PRN Reason: Constipation Last Admin: 12/25/18 12:04 Dose: 10 mg Documented by: Bisacodyl (Dulcolax) 5 mg PO DAILY PRN PRN PRN Reason: CONSTIPATION Last Admin: 12/29/18 08:34 Dose: 5 mg Documented by: Buspirone HCl (Buspar) 5 mg PO TID PRN PRN Reason: anxiety/panic attack Last Admin: 01/01/19 08:01 Dose: 5 mg Documented by: Carbidopa/Levodopa (Sinemet) 1 tablet PO 0830,1430,2030 [facility] Last Admin: 01/01/19 08:38 Dose: 1 tablet Documented by: Carbidopa/Levodopa/Entacapone (Stalevo 200 Tablet) 1 tab PO 0730,1030,1330,1630 [facility] Last Admin: 01/01/19 10:30 Dose: 1 tab Documented by: Carbidopa/Levodopa/Entacapone (Stalevo 200 Tablet) 1 tab PO 1930,2230 [facility] Last Admin: 12/31/18 22:33 Dose: 1 tab Documented by: Diphenhydramine HCl (Benadryl) 25 mg PO Q6H PRN PRN PRN Reason: ITCHING Enoxaparin Sodium (Lovenox) 40 mg SC DAILY@0600 [facility] Last Admin: 01/01/19 05:37 Dose: 40 mg Documented by: Loratadine (Claritin) 10 mg PO DAILY [facility] Last Admin: 01/01/19 07:55 Dose: 10 mg Documented by: Lorazepam (Ativan) 0.5 mg PO QHS PRN PRN PRN Reason: sleep/anxiety Last Admin: 12/31/18 20:41 Dose: 0.5 mg Documented by: Magnesium Hydroxide (Milk Of Magnesia) 30 ml PO .PRN X 1 PRN PRN Reason: Constipation Melatonin (Melatonin) 10 mg PO QHS [facility] Last Admin: 12/31/18 20:41 Dose: 10 mg Documented by: Non-Formulary Medication (Acetaminophen [Acetaminophen Er]) 650 mg PO Q8H PRN PRN PRN Reason: pain Last Admin: 01/01/19 07:59 Dose: 325 mg Documented by: Nutritional Formula (Lactose Free) (Ensure Enlive) 120 ml PO 4X/DAY [facility] Last Admin: 01/01/19 07:57 Dose: Not Given Documented by: Pantoprazole Sodium (Protonix) 20 mg PO BREAKFAST [facility] Last Admin: 01/01/19 07:55 Dose: 20 mg Documented by: Paroxetine HCl (Paxil) 10 mg PO DAILY [facility] Last Admin: 01/01/19 07:56 Dose: 10 mg Documented by: Polyethylene Glycol (Miralax) 17 gm PO QHS [facility] Last Admin: 12/31/18 22:33 Dose: 17 gm Documented by: Senna/Docusate Sodium (Senokot-S, Meghan-Colace) 2 tablet PO BID [facility] Last Admin: 01/01/19 07:58 Dose: Not Given Documented by: Medical Necessity - Tobacco Use Smoking Status: Former smoker - x 20 years 1 pack per 2 weeks cessation in Tobacco Use: Cigarettes Assessment/Plan All Active Problems (Last Updated 12/22/18 @ 16:35 by Andree Carpenter, TRUCK BODY BUILDER-C) Chest pain (Acute) Stroke-like symptoms (Acute) 1. Parkinson's disease with exacerbation due to missed doses tremors have improved; PT/OT on board; speech therapy on board neurology on board on Sinemet and Stalevo (carbidopa/levodopa/entacapone). Sinement now scheduled dosing instead of prn, in addition to scheduled Stalevo. This has helped significantly with tremors 2. Asymptomatic bacteriuria: stable. no antibiotic indicated 3. Hyperlipidemia: allergic to statin. To follow up with PCP. 4. Slow transit constipation: on dulcolax and MiraLAX as well as Senokot. 5. Depression: On Paxil and Remeron. 6. Insomnia on melatonin. 7. GERD: On pantoprazole. DVT Prophylaxis: Lovenox Code Visit Inpatient E&M: 12787 [facility] Hosp L2
[2019-01-01] MEDS: LORazepam 0.5 MG Tablet PO (19:46)
[2019-01-01 19:59] VITALS: BP 126/68; PULSE 96; RESP 18; TEMP 36.6; O2SAT 22
[2019-01-01] MEDS: Senna/Docusate Sodium 1 Tablet 2 TABLET PO (20:46)
[2019-01-01] MEDS: Polyethylene Glycol 3350 17 GM PACKET PO (20:47)
[2019-01-01] MEDS: MELATONIN 10 MG TABLET PO (20:47)
[2019-01-02] MEDS: busPIRone 5 MG Tablet PO ×2 (05:32→14:23)
[2019-01-02] MEDS: Enoxaparin 40 MG/0.4 ML Syringe SC (05:32)
[2019-01-02] MEDS: NON-FORMULARY (Acetaminophen [Acetaminophen Er] 650 MG) PO ×2 (07:41→20:28)
[2019-01-02] MEDS: Carbidopa/Levodopa/Entacapone 200 1 TAB PO ×6 (07:42→22:29)
[2019-01-02] MEDS: Loratadine 10 MG Tablet PO (07:42)
[2019-01-02] MEDS: Senna/Docusate Sodium 1 Tablet 2 TABLET PO ×2 (07:42→20:31)
[2019-01-02] MEDS: PARoxetine 10 MG Tablet PO (07:42)
[2019-01-02] MEDS: Pantoprazole Sodium 20 MG Tablet PO (07:42)
[2019-01-02 08:03] VITALS: BP 115/62; PULSE 84; RESP 16; TEMP 36.6; O2SAT 98
[2019-01-02] MEDS: Carbidopa/Levodopa 25/100 Tablet PO ×3 (09:00→20:33)
[2019-01-02] MEDS: DiphenhydrAMINE 25 MG Capsule PO ×2 (16:13→22:36)
[2019-01-02 18:15] VITALS: BP 101/53; PULSE 101; RESP 16; TEMP 36.6; O2SAT 99
[2019-01-02] MEDS: MELATONIN 10 MG TABLET PO ×2 (20:31→20:32)
[2019-01-02] MEDS: LORazepam 0.5 MG Tablet PO (20:32)
[2019-01-02] MEDS: Polyethylene Glycol 3350 17 GM PACKET PO (20:32)
[2019-01-03] MEDS: Enoxaparin 40 MG/0.4 ML Syringe SC (06:08)
[2019-01-03] MEDS: busPIRone 5 MG Tablet PO ×2 (06:08→16:35)
[2019-01-03] MEDS: DiphenhydrAMINE 25 MG Capsule PO ×2 (06:15→22:30)
[2019-01-03 07:01] VITALS: BP 119/69; PULSE 74; RESP 16; TEMP 36.4; O2SAT 98
[2019-01-03] MEDS: Carbidopa/Levodopa/Entacapone 200 1 TAB PO ×6 (07:21→22:30)
[2019-01-03] MEDS: Pantoprazole Sodium 20 MG Tablet PO (07:21)
[2019-01-03] MEDS: Senna/Docusate Sodium 1 Tablet 2 TABLET PO ×2 (07:21→22:30)
[2019-01-03] MEDS: Loratadine 10 MG Tablet PO (07:21)
[2019-01-03] MEDS: PARoxetine 10 MG Tablet PO (07:21)
[2019-01-03] MEDS: Carbidopa/Levodopa 25/100 Tablet PO (08:28)
--- NOTE | 2019-01-03 09:30 | PCM.PN.NEU ---
Subjective: Staffed in team meeting today. All the questions are answered. Further therapy details per PT/OT/ST notes. Last day covered 01/07/2019 recommended discharged to SNF. - Physical Exam General: Alert, Oriented x3, Cooperative HEENT: Atraumatic, PERRLA Oral: Moist Mucosa Neck: Supple, No JVD Lungs: Clear to auscultation, Normal air movement Cardiovascular: Regular rate, Regular Rhythm Abdomen: Bowel Sounds Present, Soft, Non Tender Extremities: No clubbing, No cyanosis, No edema, - - rigidity/stiffness x 4 extremities. Neurological: Cranial nerves II-XII grossly intact, Deep Tendon Reflexes 2+/4 and Symmetrical, Motor Exam 5/5 strength throughout Vital Signs Temp Pulse Resp BP Pulse Ox 97.5 F L 74 16 119/69 98 01/03/19 07:01 01/03/19 07:01 01/03/19 07:01 01/03/19 07:01 01/03/19 07:01 Oxygen Delivery Method Room Air Weight: 41.6 kg Body Mass Index (BMI) 18.6 Finger Stick Blood Glucose 119 Intake and Output for Last 24 Hours 01/01/19 01/02/19 01/03/19 23:59 23:59 23:59 Intake Total 200 / 200 Balance 200 / 200 Medical Necessity - Tobacco Use Smoking Status: Former smoker - x 20 years 1 pack per 2 weeks cessation in Tobacco Use: Cigarettes Assessment/Plan All Active Problems (Last Updated 12/22/18 @ 16:35 by Andree Carpenter, FIRER POWERHOUSE-C) Chest pain (Acute) Stroke-like symptoms (Acute) The patient is a 73 year old F with PMH of Parkinson disease, depression, anxiety, insomnia and GERD, admitted to [facility] [place] for debility secondary to parkinsons, for greater than 3 hours of therapy daily with the goal of returning back home at or near her prior level functional dependence. Patient presented to [facility] on 12/20/2018 for left sided weakness and facial droop. Patient had missed 3 doses of medication for parkinson disease on that day. Per daughter these symptoms has happened in past if missed doses of medication. Ct of brain unremarkable. On 12/21/2018 MRI of brain no acute or subacute infarct, ischemic infarct, or old lacunar ischemic infarcts. Small non-specific subcortical white matter T2 FLAIR hyperintensity focus in each frontal lobe. MRA of head and neck unremarkable. UA was obtained which showed Protein 15, Ketones 15, Occult blood 25, Nitrite positive, Leukocyte esterase 500, RBC 0-5, WBC 25-50, Bacteria 4+, Hyaline casts 5-10, and mucus 1+. Urine CX pending. Patient was started on Macrobid 100 mg BID, with last dose on 12/24/2018 at HS. Patient lives alone in a two story house, sleeps on first floor, bathing needs on second floor. Patient is independent with all ADLs, uses a cane or walker with transfers and mobility and drives short distances prior to this admission. Plan - PT for mobility - OT for ADLs - ST for cognition/speech - Analgesics as needed - Bowel protocol - Parkinson on Stalevo and Sinemet - Depression/anxiety on Paxil, buspar - Insomnia on melatonin and prn ativan - Gerd on Protonix - UA positive on Macrobid last dose on 12/24 at HS, Urine CX e-coli >100,000. - GI/DVT prophylaxis on Protonix/Lovenox and knee high joel hose - Medical management per hospitalist-consult - Fall precautions - F/U with PCP and Neurology
--- NOTE | 2019-01-03 10:40 | CASEMGMT ---
Addendum entered by Kirsten Walker 01/04/19 08:53: [facility] accepted pt. Spoke with pt on transfer - pt agreeable. Left message with daughter as son is on vacation. Completed 7000. Plan: DC to [facility] for further therapy and possible LTP 01/07. Original Note: Social Work IDT met with patient, daughter and KATHIE for Team meeting. Discussed progress in therapy - PT/OT/ST. Patients tremors and anxiety prohibits pt from being consistent with walking and transfers. Pt is a high fall risk and IDT not recommending pt return home alone and transfer to SNF for further therapy and possible LTP. Finances play a major role in discharge plans. Pt is agreeable to transferring to [facility] for further therapy under Medicare benefit which will allow pt and family to decide on long-term DC plan. Pt discharging 01/07. Referral made to [facility]. Will continue to follow. Kirsten Walker, ARISTIDES FIELDSW
--- NOTE | 2019-01-03 15:47 | NURSING ---
Pt ambulated hallways x1 assist with wheeled walker x2 laps, tolerated well.
[2019-01-03] MEDS: Polyethylene Glycol 3350 17 GM PACKET PO (19:37)
[2019-01-03 19:44] VITALS: BP 125/68; PULSE 84; RESP 16; TEMP 36.7; O2SAT 98
[2019-01-03 20:41] VITALS: PULSE 84; RESP 16; O2SAT 98
[2019-01-03] MEDS: LORazepam 0.5 MG Tablet PO (22:30)
[2019-01-03] MEDS: NON-FORMULARY (Acetaminophen [Acetaminophen Er] 650 MG) PO (22:31)
[2019-01-03] MEDS: MELATONIN 10 MG TABLET PO ×2 (22:45)
[2019-01-04] MEDS: Enoxaparin 40 MG/0.4 ML Syringe SC (05:03)
--- NOTE | 2019-01-04 05:09 | NURSING ---
pt refused Teds this a.m.
[2019-01-04 07:11] VITALS: BP 132/71; PULSE 77; RESP 16; TEMP 36.6; O2SAT 96
[2019-01-04] MEDS: Senna/Docusate Sodium 1 Tablet 2 TABLET PO ×2 (07:29→20:35)
[2019-01-04] MEDS: Pantoprazole Sodium 20 MG Tablet PO (07:29)
[2019-01-04] MEDS: PARoxetine 10 MG Tablet PO (07:29)
[2019-01-04] MEDS: Carbidopa/Levodopa/Entacapone 200 1 TAB PO ×6 (07:29→22:07)
[2019-01-04] MEDS: busPIRone 5 MG Tablet PO ×2 (07:29→15:41)
[2019-01-04] MEDS: Loratadine 10 MG Tablet PO (07:29)
--- NOTE | 2019-01-04 09:43 | PN.NEURO_ITS ---
Subjective: Per nursing patient slept well last night. Patient continues to tolerate therapies, denies further questions or concerns. - Physical Exam General: Alert, Oriented x3, Cooperative HEENT: Atraumatic, PERRLA Oral: Moist Mucosa Neck: Supple, No JVD Lungs: Clear to auscultation, Normal air movement Cardiovascular: Regular rate, Regular Rhythm Abdomen: Bowel Sounds Present, Soft, Non Tender Extremities: No clubbing, No cyanosis, No edema, - - rigidity/stiffness x 4 extremities Neurological: Cranial nerves II-XII grossly intact, Deep Tendon Reflexes 2+/4 and Symmetrical, Motor Exam 5/5 strength throughout Psych/Mental Status: Normal Affect, Appropriate, Alert and oriented to time, place, person, mood and affect Vital Signs Temp Pulse Resp BP Pulse Ox 98 F 77 16 132/71 H 96 01/04/19 07:11 01/04/19 07:11 01/04/19 07:11 01/04/19 07:11 01/04/19 07:11 Oxygen Delivery Method Room Air Weight: 41.078 kg Body Mass Index (BMI) 18.6 Finger Stick Blood Glucose 119 Intake and Output for Last 24 Hours 01/02/19 01/03/19 01/04/19 23:59 23:59 23:59 Intake Total 200 / 200 240 / 240 Balance 200 / 200 240 / 240 Medical Necessity - Tobacco Use Smoking Status: Former smoker - x 20 years 1 pack per 2 weeks cessation in Tobacco Use: Cigarettes Assessment/Plan All Active Problems (Last Updated 12/22/18 @ 16:35 by Andree Carpenter, BRANCH RENTAL MANAGER-C) Chest pain (Acute) Stroke-like symptoms (Acute) The patient is a 73 year old F with PMH of Parkinson disease, depression, anxiety, insomnia and GERD, admitted to [facility] for debility secondary to parkinsons, for greater than 3 hours of therapy daily with the goal of returning back home at or near her prior level functional dependence. Patient presented to [facility] on 12/20/2018 for left sided weakness and facial droop. Patient had missed 3 doses of medication for parkinson disease on that day. Per daughter these symptoms has happened in past if missed doses of medication. Ct of brain unremarkable. On 12/21/2018 MRI of brain no acute or subacute infarct, ischemic infarct, or old lacunar ischemic infarcts. Small non- specific subcortical white matter T2 FLAIR hyperintensity focus in each frontal lobe. MRA of head and neck unremarkable. UA was obtained which showed Protein 15, Ketones 15, Occult blood 25, Nitrite positive, Leukocyte esterase 500, RBC 0-5, WBC 25-50, Bacteria 4+, Hyaline casts 5-10, and mucus 1+. Urine CX pending. Patient was started on Macrobid 100 mg BID, with last dose on 12/24/2018 at HS. Patient lives alone in a two story house, sleeps on first floor, bathing needs on second floor. Patient is independent with all ADLs, uses a cane or walker with transfers and mobility and drives short distances prior to this admission. Plan - PT for mobility - OT for ADLs - ST for cognition/speech - Analgesics as needed - Bowel protocol - Parkinson on Stalevo and Sinemet - Depression/anxiety on Paxil, buspar - Insomnia on melatonin and prn ativan - Gerd on Protonix - UA positive on Macrobid last dose on 12/24 at HS, Urine CX e-coli >100,000. - GI/DVT prophylaxis on Protonix/Lovenox and knee high joel hose - Medical management per hospitalist-consult - Fall precautions - F/U with PCP and Neurology
[2019-01-04] MEDS: Carbidopa/Levodopa 25/100 Tablet PO (12:57)
[2019-01-04 17:36] VITALS: BP 95/57; PULSE 101; RESP 18; TEMP 37.1; O2SAT 94
[2019-01-04 20:04] VITALS: RESP 17; O2SAT 97
[2019-01-04] MEDS: LORazepam 0.5 MG Tablet PO (20:35)
[2019-01-04] MEDS: Polyethylene Glycol 3350 17 GM PACKET PO (20:35)
[2019-01-04] MEDS: DiphenhydrAMINE 25 MG Capsule PO (22:07)
[2019-01-04] MEDS: MELATONIN 10 MG TABLET PO (22:27)
--- NOTE | 2019-01-04 22:33 | NURSING ---
This RN gave an undocumented dose of Melatonin the previous night d/t a scanned dose from previous night. %
--- NOTE | 2019-01-04 22:34 | NURSING ---
This RN had provided melatonin 01/03 as an undocumented dose as there had already been an admin dose on this 2200 dose. This RN had scanned the melatonin for 01/03 then marked the Document Unscheduled martin. This action dbl scanned my Melatonin dose although this RN only provided the 10mg as prescribed. On this date, 01/04, the 2200 dose was marked given from my action last night. This RN notified the Pharmacist, Bin, who verified it appears the past 2 nights indicate the dbl dose was applied to her MAR. The Pharmacist recommended providing the Document Unschdule dose for 2200 this hs and to make a note. This pt was only given 10 mg Melatonin for 01/03 & 01/04 by this RN as evidence by the dosing available in pt drawer.
[2019-01-05] MEDS: Enoxaparin 40 MG/0.4 ML Syringe SC (05:17)
[2019-01-05 06:01] LABS: Hematocrit 30.6 % (37-47); Mean Corp Hgb Conc 32.7 g/dL (32-36); Mean Corpuscular Hgb 30.3 pg (27.0-32.0); Mean Corpuscular Volume 92.7 fL (81-99); Mean Platelet Vol. 9.7 fl (6.2-12.0); Platelet Count 292 K/mm3 (150-450); RBC Distribution Width CV 12.9 % (11.6-14.6); RBC Distribution Width SD 43.9 fl (35.1-43.9); White Blood Count 6.4 K/mm3 (4.4-11.0)
[2019-01-05 06:25] LABS: ALB/GLOB Ratio 1.1 RATIO (0.9-2.4); AST(SGOT) 12 U/L (15-37); Alanine Aminotransfer ALT/SGPT 8 U/L (13-56); Albumin, Serum 3.3 g/dL (3.2-5.0); Alkaline Phosphatase 72 U/L (45-117); Anion Gap 6 (5-15); BUN 34 mg/dL (7-18); BUN/Creat Ratio 49.1 RATIO (10-20); Calcium,Total 8.9 mg/dL (8.5-10.1); Chloride 106 mmol/L (98-107); Creatinine, Serum 0.69 mg/dL (0.55-1.02); EST Glomerular Filtration Rate 88 mL/min (>60); Est Glom Filt Rate - Afr Amer 107 mL/min (>60); Estimated Creatinine Clearance 32.98 ml/min; Glucose 90 mg/dL (74-106); Potassium 4.4 mmol/L (3.5-5.1); Protein, Total 6.3 g/dL (6.4-8.2); Sodium Level 140 mmol/L (136-145)
[2019-01-05 07:04] VITALS: BP 113/62; PULSE 90; RESP 17; TEMP 36.7; O2SAT 97
[2019-01-05] MEDS: Loratadine 10 MG Tablet PO (07:45)
[2019-01-05] MEDS: Pantoprazole Sodium 20 MG Tablet PO (07:45)
[2019-01-05] MEDS: PARoxetine 10 MG Tablet PO (07:45)
[2019-01-05] MEDS: Carbidopa/Levodopa/Entacapone 200 1 TAB PO ×6 (07:45→22:23)
[2019-01-05] MEDS: busPIRone 5 MG Tablet PO ×2 (07:45→16:28)
--- NOTE | 2019-01-05 09:01 | PN.NEURO_ITS ---
Subjective: Per nursing no issues overnight. Patient will be discharged to [facility] to further therapies on 01/07/2019. Patient tolerating therapies well and continue to have intermittent tremors to extremities. - Physical Exam General: Alert, Oriented x3, Cooperative HEENT: Atraumatic, PERRLA Oral: Moist Mucosa Neck: Supple, No JVD Lungs: Clear to auscultation, Normal air movement Cardiovascular: Regular rate, Regular Rhythm Abdomen: Bowel Sounds Present, Soft, Non Tender Extremities: No clubbing, No cyanosis, No edema, - - rigidity/stiffness to extremities Neurological: Cranial nerves II-XII grossly intact, Deep Tendon Reflexes 2+/4 and Symmetrical, Motor Exam 5/5 strength throughout Psych/Mental Status: Normal Affect, Appropriate, Alert and oriented to time, place, person, mood and affect Vital Signs Temp Pulse Resp BP Pulse Ox 98.1 F 90 17 113/62 97 01/05/19 07:04 01/05/19 07:04 01/05/19 07:04 01/05/19 07:04 01/05/19 07:04 Oxygen Delivery Method Room Air Weight: 41.078 kg Body Mass Index (BMI) 18.6 Finger Stick Blood Glucose 119 Intake and Output for Last 24 Hours 01/03/19 01/04/19 01/05/19 23:59 23:59 23:59 Intake Total 240 / 240 Balance 240 / 240 Laboratory Tests Past 24 Hrs 01/05/19 01/05/19 05:30 05:30 WBC 6.4 RBC 3.30 L Hgb 10.0 L Hct 30.6 L MCV 92.7 MCH 30.3 MCHC 32.7 RDW Std Deviation 43.9 RDW Coeff of Vitor 12.9 Plt Count 292 MPV 9.7 Sodium 140 Potassium 4.4 Chloride 106 Carbon Dioxide 28.0 Anion Gap 6 BUN 34 H Creatinine 0.69 Estim Creat Clear Calc 32.98 Est GFR (MDRD) Af Amer 107 Est GFR (MDRD) Non-Af 88 BUN/Creatinine Ratio 49.1 H Glucose 90 Calcium 8.9 Total Bilirubin 0.40 AST 12 L ALT 8 L Alkaline Phosphatase 72 Total Protein 6.3 L Albumin 3.3 Globulin 3.0 Albumin/Globulin Ratio 1.1 Medical Necessity - Tobacco Use Smoking Status: Former smoker - x 20 years 1 pack per 2 weeks cessation in Tobacco Use: Cigarettes Assessment/Plan All Active Problems (Last Updated 12/22/18 @ 16:35 by Andree Carpenter, AUTOMATIC EDGER-C) Chest pain (Acute) Stroke-like symptoms (Acute) The patient is a 73 year old F with PMH of Parkinson disease, depression, anxiety, insomnia and GERD, admitted to [facility] for debility secondary to parkinsons, for greater than 3 hours of therapy daily with the goal of returning back home at or near her prior level functional dependence. Patient presented to [facility] on 12/20/2018 for left sided weakness and facial droop. Patient had missed 3 doses of medication for parkinson disease on that day. Per daughter these symptoms has happened in past if missed doses of medication. Ct of brain unremarkable. On 12/21/2018 MRI of brain no acute or subacute infarct, ischemic infarct, or old lacunar ischemic infarcts. Small non- specific subcortical white matter T2 FLAIR hyperintensity focus in each frontal lobe. MRA of head and neck unremarkable. UA was obtained which showed Protein 15, Ketones 15, Occult blood 25, Nitrite positive, Leukocyte esterase 500, RBC 0-5, WBC 25-50, Bacteria 4+, Hyaline casts 5-10, and mucus 1+. Urine CX pending. Patient was started on Macrobid 100 mg BID, with last dose on 12/24/2018 at HS. Patient lives alone in a two story house, sleeps on first floor, bathing needs on second floor. Patient is independent with all ADLs, uses a cane or walker with transfers and mobility and drives short distances prior to this admission. Plan - PT for mobility - OT for ADLs - ST for cognition/speech - Analgesics as needed - Bowel protocol - Parkinson on Stalevo and Sinemet prn - Depression/anxiety on Paxil, buspar - Insomnia on melatonin and prn ativan - Gerd on Protonix - UA positive on Macrobid last dose on 12/24 at HS, Urine CX e-coli >100,000. - GI/DVT prophylaxis on Protonix/Lovenox and knee high joel hose - Medical management per hospitalist-consult - Fall precautions - F/U with PCP and Neurology D/C to SNF on 01/07/2019
[2019-01-05] MEDS: Senna/Docusate Sodium 1 Tablet 2 TABLET PO ×2 (11:16→22:23)
[2019-01-05] MEDS: Carbidopa/Levodopa 25/100 Tablet PO (14:31)
[2019-01-05] MEDS: NON-FORMULARY (Acetaminophen [Acetaminophen Er] 650 MG) PO (16:28)
--- NOTE | 2019-01-05 17:23 | PCM.PN.HOSP ---
Subjective: Patient since last evaluation with improvement of anxiety symptoms with scheduled BuSpar. Patient tolerating therapies however plan for transition likely back to alf facility for ongoing therapies at a reduced level this coming Thursday. Patient does have ongoing tremors but these have not debilitated her. Patient denies fevers, chills, nausea, emesis, abdominal pain, chest pain or dyspnea. Objective: Physical Examination: General: awake, alert, oriented x 3 and cooperative, seated upright bedside chair, no acute distress, minimal tremor present. Skin: normal color, turgor, no icterus, cyanosis. HEENT: AT/NC, EOMI, PERRLA, MMM. Lungs: CTA bilaterally, moderate effort, mild decrease BL bases, no rales, ronchi or wheezing. Heart: Regular rate and rhythm; no gallop, rub audible. Abdomen: soft, thin, cachectic habitus, NTTP, ND. Extremities: no cyanosis, clubbing, or edema. Neurological: patient awake, alert, oriented x 3; cognitive function appears baseline intact; pupils equally reactive to light and accomodation; cranial nerves II-XII grossly normal, moving all 4 extremities although limited, rigid, tremors presents, strength 5 out of 5 diffusely. Psychiatric: affect appears flat, does not appear anxious at all at this time, no acute evidence of depressive feelings. Vitals/I&O's: Vital Signs Temp Pulse Resp BP Pulse Ox 98.1 F 90 17 113/62 97 01/05/19 07:04 01/05/19 07:04 01/05/19 07:04 01/05/19 07:04 01/05/19 07:04 Oxygen Delivery Method Room Air Weight: 90 lb 9 oz Body Mass Index (BMI) 18.6 Finger Stick Blood Glucose 119 Intake and Output for Last 24 Hours 01/03/19 01/04/19 01/05/19 23:59 23:59 23:59 Intake Total 240 / 240 Balance 240 / 240 Laboratory Results 01/05/19 05:30: WBC 6.4, RBC 3.30 L, Hgb 10.0 L, Hct 30.6 L, MCV 92.7, MCH 30.3, MCHC 32.7, RDW Std Deviation 43.9, RDW Coeff of Vitor 12.9, Plt Count 292, MPV 9.7 01/05/19 05:30: Sodium 140, Potassium 4.4, Chloride 106, Carbon Dioxide 28.0, Anion Gap 6, BUN 34 H, Creatinine 0.69, Estim Creat Clear Calc 32.98, Est GFR (MDRD) Af Amer 107, Est GFR (MDRD) Non-Af 88, BUN/Creatinine Ratio 49.1 H, Glucose 90, Calcium 8.9, Total Bilirubin 0.40, AST 12 L, ALT 8 L, Alkaline Phosphatase 72, Total Protein 6.3 L, Albumin 3.3, Globulin 3.0, Albumin/Globulin Ratio 1.1 Current Medications Bisacodyl (Dulcolax) 10 mg RECTAL .PRN X 1 PRN PRN Reason: Constipation Last Admin: 12/25/18 12:04 Dose: 10 mg Documented by: Bisacodyl (Dulcolax) 5 mg PO DAILY PRN PRN PRN Reason: CONSTIPATION Last Admin: 12/29/18 08:34 Dose: 5 mg Documented by: Buspirone HCl (Buspar) 5 mg PO BID@0730,1630 [facility] Last Admin: 01/05/19 16:28 Dose: 5 mg Documented by: Carbidopa/Levodopa (Sinemet) 1 tablet PO BID PRN PRN Reason: tremors Last Admin: 01/05/19 14:31 Dose: 1 tablet Documented by: Carbidopa/Levodopa/Entacapone (Stalevo 200 Tablet) 1 tab PO 0730,1030,1330,1630 [facility] Last Admin: 01/05/19 15:28 Dose: 1 tab Documented by: Carbidopa/Levodopa/Entacapone (Stalevo 200 Tablet) 1 tab PO 1930,2230 [facility] Last Admin: 01/04/19 22:07 Dose: 1 tab Documented by: Diphenhydramine HCl (Benadryl) 25 mg PO Q6H PRN PRN PRN Reason: ITCHING Last Admin: 01/04/19 22:07 Dose: 25 mg Documented by: Enoxaparin Sodium (Lovenox) 40 mg SC DAILY@0600 [facility] Last Admin: 01/05/19 05:17 Dose: 40 mg Documented by: Loratadine (Claritin) 10 mg PO DAILY [facility] Last Admin: 01/05/19 07:45 Dose: 10 mg Documented by: Lorazepam (Ativan) 0.5 mg PO QHS PRN PRN PRN Reason: sleep/anxiety Last Admin: 01/04/19 20:35 Dose: 0.5 mg Documented by: Magnesium Hydroxide (Milk Of Magnesia) 30 ml PO .PRN X 1 PRN PRN Reason: Constipation Melatonin (Melatonin) 10 mg PO QHS [facility] Last Admin: 01/04/19 22:27 Dose: 10 mg Documented by: Non-Formulary Medication (Acetaminophen [Acetaminophen Er]) 650 mg PO Q8H PRN PRN PRN Reason: pain Last Admin: 01/05/19 16:28 Dose: 650 mg Documented by: Nutritional Formula (Lactose Free) (Ensure Enlive) 120 ml PO 4X/DAY [facility] Last Admin: 01/05/19 16:36 Dose: Not Given Documented by: Pantoprazole Sodium (Protonix) 20 mg PO BREAKFAST [facility] Last Admin: 01/05/19 07:45 Dose: 20 mg Documented by: Paroxetine HCl (Paxil) 10 mg PO DAILY [facility] Last Admin: 01/05/19 07:45 Dose: 10 mg Documented by: Polyethylene Glycol (Miralax) 17 gm PO QHS [facility] Last Admin: 01/04/19 20:35 Dose: 17 gm Documented by: Senna/Docusate Sodium (Senokot-S, Meghan-Colace) 2 tablet PO BID [facility] Last Admin: 01/05/19 11:16 Dose: 2 tablet Documented by: Medical Necessity - Tobacco Use Smoking Status: Former smoker - x 20 years 1 pack per 2 weeks cessation in Tobacco Use: Cigarettes Assessment/Plan All Active Problems (Last Updated 12/22/18 @ 16:35 by Andree Carpenter NP-C) Chest pain (Acute) Stroke-like symptoms (Acute) The patient is a 73 y/o F w/ PMHx: Parkinson's Disease, Anxiety and Depression, Insomnia, GERD, Severe Protein-Calorie Malnutrition who presents to the [facility] on 12/22/18 for planned ongoing therapies secondary to recent L sided weakness, facial droop w/ negative CVA evaluation. (1) Debility, Weakness secondary to Parkinson's Disease: Continue PT, OT evaluations, fall precautions, walker usage, ongoing treatment of her Parkinson's disease with Sinemet and Stalevo with neurology following, plan transition from current discussion to alf facility at the end of this week. (2) Recent Acute E. Coli UTI: 12/21/18 UCx w/ > 100,000 CFU, noted to have been nearly pansensitive aside resistance to ampicillin and ampicillin sulbactam, pleated Macrobid therapy. (3) Anxiety and depression: Contributing to #1, maintained on Paxil as well as as needed low-dose Ativan in addition to scheduled BuSpar which has assisted greatly. (4) Severe protein calorie malnutrition: Evidenced by BMI, habitus, obvious muscle and fat loss, nutrition consulted, supplementations ongoing. (5) GERD: PPI. (6) DVT prophylaxis: SCDs, Lovenox. Code Visit Inpatient E&M: 63545 Subs Hosp L2
[2019-01-05 19:56] VITALS: BP 93/50; PULSE 95; RESP 18; TEMP 36.8; O2SAT 98
[2019-01-05] MEDS: MELATONIN 10 MG TABLET PO (22:22)
[2019-01-05] MEDS: LORazepam 0.5 MG Tablet PO (22:23)
[2019-01-05] MEDS: Polyethylene Glycol 3350 17 GM PACKET PO (22:23)
[2019-01-05] MEDS: DiphenhydrAMINE 25 MG Capsule PO (22:25)
[2019-01-06] MEDS: Enoxaparin 40 MG/0.4 ML Syringe SC (05:00)
[2019-01-06] MEDS: DiphenhydrAMINE 25 MG Capsule PO ×2 (05:02→22:26)
[2019-01-06 07:15] VITALS: BP 124/65; PULSE 104; RESP 18; TEMP 36.3; O2SAT 98
[2019-01-06] MEDS: Carbidopa/Levodopa/Entacapone 200 1 TAB PO ×6 (07:39→22:26)
[2019-01-06] MEDS: Loratadine 10 MG Tablet PO (07:39)
[2019-01-06] MEDS: PARoxetine 10 MG Tablet PO (07:39)
[2019-01-06] MEDS: Pantoprazole Sodium 20 MG Tablet PO (07:39)
[2019-01-06] MEDS: busPIRone 5 MG Tablet PO ×2 (07:39→16:50)
[2019-01-06] MEDS: Senna/Docusate Sodium 1 Tablet 2 TABLET PO ×2 (07:41→19:40)
[2019-01-06] MEDS: NON-FORMULARY (Acetaminophen [Acetaminophen Er] 650 MG) PO (08:50)
--- NOTE | 2019-01-06 09:54 | PCM.PN.NEU ---
Subjective: No issues overnight per nursing. Intermittent tremors continues to extremities, tolerating therapies well. Patient aware of discharge to SNF at [facility] on 01/07/2019. Denies further questions or concerns. - Physical Exam General: Alert, Oriented x3, Cooperative HEENT: Atraumatic, PERRLA Oral: Moist Mucosa Neck: Supple, No JVD Lungs: Clear to auscultation, Normal air movement Cardiovascular: Regular rate, Regular Rhythm Abdomen: Bowel Sounds Present, Soft, Non Tender Extremities: No clubbing, No cyanosis, No edema Neurological: Cranial nerves II-XII grossly intact, Deep Tendon Reflexes 2+/4 and Symmetrical, Neuro grossly intact, Motor Exam 5/5 strength throughout Psych/Mental Status: Normal Affect, Appropriate, Alert and oriented to time, place, person, mood and affect Vital Signs Temp Pulse Resp BP Pulse Ox 97.3 F L 104 H 18 124/65 H 98 01/06/19 07:15 01/06/19 07:15 01/06/19 07:15 01/06/19 07:15 01/06/19 07:15 Oxygen Delivery Method Room Air Weight: 40.6 kg Body Mass Index (BMI) 18.6 Finger Stick Blood Glucose 119 Intake and Output for Last 24 Hours 01/04/19 01/05/19 01/06/19 23:59 23:59 23:59 Intake Total 240 / 240 240 / 240 Balance 240 / 240 240 / 240 Medical Necessity - Tobacco Use Smoking Status: Former smoker - x 20 years 1 pack per 2 weeks cessation in Tobacco Use: Cigarettes Assessment/Plan All Active Problems (Last Updated 12/22/18 @ 16:35 by Andree Carpenter, RORO-C) Chest pain (Acute) Stroke-like symptoms (Acute) The patient is a 73 year old F with PMH of Parkinson disease, depression, anxiety, insomnia and GERD, admitted to [facility] for debility secondary to parkinsons, for greater than 3 hours of therapy daily with the goal of returning back home at or near her prior level functional dependence. Patient presented to [facility] on 12/20/2018 for left sided weakness and facial droop. Patient had missed 3 doses of medication for parkinson disease on that day. Per daughter these symptoms has happened in past if missed doses of medication. Ct of brain unremarkable. On 12/21/2018 MRI of brain no acute or subacute infarct, ischemic infarct, or old lacunar ischemic infarcts. Small non-specific subcortical white matter T2 FLAIR hyperintensity focus in each frontal lobe. MRA of head and neck unremarkable. UA was obtained which showed Protein 15, Ketones 15, Occult blood 25, Nitrite positive, Leukocyte esterase 500, RBC 0-5, WBC 25-50, Bacteria 4+, Hyaline casts 5-10, and mucus 1+. Urine CX pending. Patient was started on Macrobid 100 mg BID, with last dose on 12/24/2018 at HS. Patient lives alone in a two story house, sleeps on first floor, bathing needs on second floor. Patient is independent with all ADLs, uses a cane or walker with transfers and mobility and drives short distances prior to this admission. Plan - PT for mobility - OT for ADLs - ST for cognition/speech - Analgesics as needed - Bowel protocol - Parkinson on Stalevo and Sinemet prn - Depression/anxiety on Paxil, buspar - Insomnia on melatonin and prn ativan - Gerd on Protonix - UA positive on Macrobid last dose on 12/24 at HS, Urine CX e-coli >100,000. - GI/DVT prophylaxis on Protonix/Lovenox and knee high joel hose - Medical management per hospitalist-consult - Fall precautions - F/U with PCP and Neurology D/C to SNF on 01/07/2019
--- NOTE | 2019-01-06 10:21 | TREXTCA.CO_ITS ---
- Diet 12/22/18 15:33 Diet: Cardiac/Low Cholesterol Food consistency:: Soft Liquid Consistency:: Regular/Thin Type of Dietary Supplement:: Ensure Complete - Routine Orders/Code Status Enema Type: Fleetz Enema Frequency: Daily PRN Suppository Type: Dulcolax 10mg Suppository Frequency: Daily PRN Keep PO Greater than or Equal to (%): 92 - Therapies Weight Bearing: Full weight bearing Physical Therapy: Eval and Treat Occupational Therapy: Eval and Treat Speech Therapy: Eval and Treat - Allergies/Procedures Done in Hospital Allergies/Adverse Reactions: Allergies adhesive Allergy (Verified 12/20/18 18:43) Rash atorvastatin [From Lipitor] Allergy (Verified 12/20/18 18:43) Rash cefaclor [From Ceclor] Allergy (Verified 12/20/18 18:43) Hives Cephalosporins Allergy (Verified 12/20/18 18:43) Unknown ciprofloxacin [From Cipro] Allergy (Verified 03/23/17 07:04) Hives hydrocodone [From [place]] Allergy (Verified 12/20/18 18:43) Rash hydromorphone [From Dilaudid] Allergy (Verified 12/20/18 18:43) Rash Macrolide Antibiotics Allergy (Verified 12/20/18 18:43) Hives oxycodone [From Percocet] Allergy (Verified 12/20/18 18:43) Rash propoxyphene [From Darvocet-N] Allergy (Verified 12/20/18 18:43) Rash simvastatin [From Zocor] Allergy (Verified 12/20/18 18:43) Unknown Sulfa (Sulfonamide Antibiotics) Allergy (Verified 12/20/18 18:43) Rash cimetidine [From Tagamet] Adverse Reaction (Verified 03/23/17 07:04) Upset Stomach erythromycin base Adverse Reaction (Verified 12/20/18 18:43) Upset Stomach - Type of Care/Length of Stay Estimated LOS: Convalescent Care Less Than 30 days Type of Care Needed: Skilled Rehab Potential: Fair Prognosis: Fair - Additional Orders/Day of Discharge H&P will serve as current which was dated: 12/22/18 Day of Discharge: 01/07/19 - Dietary and Speech Recommendations Dietitian Recommendations/Changes: Suggest therapeutic diet change to Regular with texture/consistency as per speech. - Follow Up Care Primary Care Physician: Chad Zamorano MD [Primary Care Provider] - Please Follow Up With: Neurology
[2019-01-06] MEDS: Carbidopa/Levodopa 25/100 Tablet PO ×2 (14:39→21:00)
[2019-01-06] MEDS: Polyethylene Glycol 3350 17 GM PACKET PO (19:40)
[2019-01-06] MEDS: MELATONIN 10 MG TABLET PO (19:40)
[2019-01-06 19:56] VITALS: BP 116/67; PULSE 88; RESP 16; TEMP 36.2; O2SAT 92
[2019-01-06] MEDS: LORazepam 0.5 MG Tablet PO (21:38)
--- NOTE | 2019-01-07 02:43 | NURSING ---
vp of technology charting reviewed and agree with documentation.
[2019-01-07] MEDS: Enoxaparin 40 MG/0.4 ML Syringe SC (05:42)
[2019-01-07] MEDS: Carbidopa/Levodopa 25/100 Tablet PO (05:50)
[2019-01-07] MEDS: busPIRone 5 MG Tablet PO (07:48)
[2019-01-07] MEDS: Carbidopa/Levodopa/Entacapone 200 1 TAB PO ×2 (07:48→10:32)
[2019-01-07] MEDS: Loratadine 10 MG Tablet PO ×2 (07:48→07:49)
[2019-01-07] MEDS: Pantoprazole Sodium 20 MG Tablet PO (07:48)
[2019-01-07] MEDS: Senna/Docusate Sodium 1 Tablet 2 TABLET PO (07:49)
[2019-01-07] MEDS: PARoxetine 10 MG Tablet PO (07:49)
--- NOTE | 2019-01-07 09:01 | PCM.RU.DC ---
Rehab Discharge Summary DATE OF ADMISSION: 12/22/18 DATE OF DISCHARGE: 01/07/2019 - Rehab Diagnosis Debility secondary to parkinson's disease Subjective: Per nursing no issues overnight. Patient aware of discharge to [facility] today. Denies further questions or concerns. - Physical Exam General: Alert, Oriented x3, Cooperative HEENT: Atraumatic, PERRLA Oral: Moist Mucosa Neck: Supple, No JVD Lungs: Clear to auscultation, Normal air movement Cardiovascular: Regular rate, Regular Rhythm Abdomen: Soft, Non Tender Extremities: No clubbing, No cyanosis, No edema, - - rigidity/stiffness to extremities Neurological: Cranial nerves II-XII grossly intact, Deep Tendon Reflexes 2+/4 and Symmetrical, Motor Exam 5/5 strength throughout Psych/Mental Status: Normal Affect, Appropriate, Alert and oriented to time, place, person, mood and affect Vital Signs Temp Pulse Resp BP Pulse Ox 97.2 F L 88 16 116/67 92 01/06/19 19:56 01/06/19 19:56 01/06/19 19:56 01/06/19 19:56 01/06/19 19:56 Oxygen Delivery Method Room Air Weight: 40.8 kg Body Mass Index (BMI) 18.6 Finger Stick Blood Glucose 119 Intake and Output for Last 24 Hours 01/05/19 01/06/19 01/07/19 23:59 23:59 23:59 Intake Total 240 / 240 Balance 240 / 240 Discharge Diet: Soft diet, Low fat/ Low Cholesterol Discharge Activity: Return to Normal Activity, May Not Drive, May Shower Weight Bearing Status: Weight bearing as tolerated Call your doctor if you observe: Fever of 101 or Higher, Coldness, Increased Pain, Numbness or Tingling, Change in Color, Inability to urinate, Inability to have a bowel movement, Shortness of breath, Dizziness, Fainting spells, Swelling in the ankles, Chest pain, Prolonged hiccoughing, Increased palpitations (irregular heartbeat), Calf discomfort Home Medications: Medications to take at Discharge Acetaminophen [Acetaminophen ER] 650 mg PO Q8H PRN PRN 01/06/19 Carbidopa/Levodopa 25/100 [Sinemet 25/100] 1 tab PO BID PRN tab 01/06/19 Carbidopa/Levodopa/Entacapone [Stalevo 100 Tablet] 200 mg PO 0730,1030,1330,1630 #1 01/06/19 Carbidopa/Levodopa/Entacapone [Stalevo 100 Tablet] 200 mg PO 1930,2230 #1 01/06/19 Ensure Enlive 120 ml PO 4X/DAY liquid 01/06/19 Loratadine [Claritin] 10 mg PO DAILY tab 01/06/19 Melatonin 10 mg PO QHS tab 01/06/19 Pantoprazole Sodium [Protonix] 20 mg PO BREAKFAST tab 01/06/19 Paroxetine [Paxil] 10 mg PO DAILY tab 01/06/19 Senna/Docusate Sodium [Senokot-S] 2 tab PO BID tab 01/06/19 busPIRone [Buspar] 5 mg PO BID@0730,1630 tab 01/06/19 Following Prescrptions Were Given to Patient: Carbidopa/Levodopa/Entacapone [Stalevo 100 Tablet] 200 mg PO 1930,2229 #1 Primary Care Physician: Chad Zamorano MD [Primary Care Provider] - Please Follow Up With: Neurology Disposition: [facility] facility Patient Condition:: Stable Rehab Course The patient is a 73 year old F with PMH of Parkinson disease, depression, anxiety, insomnia and GERD, admitted to [facility] for debility secondary to parkinsons, for greater than 3 hours of therapy daily with the goal of returning back home at or near her prior level functional dependence. Patient presented to [facility] on 12/20/2018 for left sided weakness and facial droop. Patient had missed 3 doses of medication for parkinson disease on that day. Per daughter these symptoms has happened in past if missed doses of medication. Ct of brain unremarkable. On 12/21/2018 MRI of brain no acute or subacute infarct, ischemic infarct, or old lacunar ischemic infarcts. Small non-specific subcortical white matter T2 FLAIR hyperintensity focus in each frontal lobe. MRA of head and neck unremarkable. UA was obtained which showed Protein 15, Ketones 15, Occult blood 25, Nitrite positive, Leukocyte esterase 500, RBC 0-5, WBC 25-50, Bacteria 4+, Hyaline casts 5-10, and mucus 1+. Urine CX e-coli >100,000. Patient was started on Macrobid 100 mg BID, with last dose on 12/24/2018 at . Patient lives alone in a two story house, sleeps on first floor, bathing needs on second floor. Patient is independent with all ADLs, uses a cane or walker with transfers and mobility and drives short distances prior to this admission. Patient was also started on buspar for anxiety which has been beneficial. Patient is currently taking Stalevo 6x/day and sinemet was increased from 1/2 tab bid prn to [address] Gaytan Neurology manages patient's parkinsons disease. Patient will be discharged to SNF at [facility] for further skilled therapies on 01/07/2019. Meaningful Use Info Meaningful Use Diagnoses (Choose all that apply): None applicable
--- NOTE | 2019-01-07 09:39 | NURSING ---
Tel. Rosalie Harper gave report to CARIDAD Newton .
[2019-01-07 09:40] VITALS: BP 109/65; PULSE 101; RESP 19; TEMP 36.8; O2SAT 98
[2019-01-07 10:22] VITALS: BP 109/65; PULSE 101; RESP 19; TEMP 36.8; O2SAT 92
== END 2019-01-07 11:00 | disposition skilled nursing facility (03) | DRG 947 ==
PROVIDERS: Nurse Practitioner Family; Admitting Provider Psychiatry & Neurology Neurology; Family Provider Family Medicine; PCP Family Medicine; Referring Provider Psychiatry & Neurology Neurology; Visit Provider Family Medicine
DX: R53.81 Other malaise (principal); E43 Unspecified severe protein-calorie malnutrition; Z68.1 Body mass index [BMI] 19.9 or less, adult; F32.9 Major depressive disorder, single episode, unspecified; F02.80 Dementia in other diseases classified elsewhere, unspecified severity, without behavioral disturbance, psychotic disturbance, mood disturbance, and anxiety; G20 Parkinson's disease; K21.9 Gastro-esophageal reflux disease without esophagitis; F17.210 Nicotine dependence, cigarettes, uncomplicated; G47.00 Insomnia, unspecified; E78.5 Hyperlipidemia, unspecified; F41.9 Anxiety disorder, unspecified; R13.12 Dysphagia, oropharyngeal phase; K59.01 Slow transit constipation
CPT/HCPCS: 36415; 80053; 85025; 85027; 92507; 92523; 92526; 92610; 97110; 97116; 97163; 97166; 97530; 97535; 97802

== ENCOUNTER 2022-06-30 12:18 | Day surgery (SDC) | payer MEDICARE, OTHER, MEDICAID, SELFPAY ==
[2022-06-30] VITALS (7 sets, daily range): BP systolic 94–118; BP diastolic 57–69; PULSE 69–85; RESP 16–18; TEMP 36.2–37.2; O2SAT 96–100
--- NOTE | 2022-06-30 | EGD_PTH ---
PATIENT: TANA MEEK LOC: EN U#:[id number] AGE/SX: 76/F ROOM: RE06/30/[address]: Dr. Maryjo Nunez MD : 1945 BED: DIS: 06/30/2022 SPEC #: [id number] RECD: 06/30/22 15:29 STATUS: MARY ANNE ESPARZALorraine #: [id number] KADY: 06/30/22 00:[address]: Maryjo Nunez DEPT: SURGICAL PATHOLOGY RECD BY: Octaviano Verma ENTERED: 07/01/22 09:11 SP TYPE: EGD BIOPSY OT DR: Dr. Merna Bowen MD Tissues: Stomach, NOS Procedures: Surgery Specimen Level IV HEADER OPERATION: EGD (CARL), PEG tube exchange PRE-OP DIAGNOSIS: PEG tube exchange TISSUE SUBMITTED: Body of stomach for H. pylori and histology MICROSCOPIC DIAGNOSIS Body of stomach, biopsy: Mild gastritis. See microscopic description and comment. SJ:erasmo 07/02/2022 COMMENT The results of immunohistochemistry for Helicobacter pylori will be reported separately ([id number]). MICROSCOPIC DESCRIPTION Slides are reviewed. The specimen shows fragments of gastric mucosa with chronic inflammatory cell infiltrates in the lamina propria consisting of lymphocytes and plasma cells, consistent with mild chronic gastritis. GROSS DESCRIPTION Received in fixative is one container labeled with the patient's name and designated body of stomach biopsy. The specimen consists of one irregular fragment of light davis soft tissue that measures 0.5 x 0.3 x 0.1 cm. The specimen is totally submitted in one cassette. / JAXON:erasmo 07/01/2022 TC:3 CPT: 66385
[2022-06-30] MEDS: Lactated Ringers 1,000 ML 15 ML IV (13:05)
--- NOTE | 2022-06-30 13:30 | IMM_PTH ---
PATIENT: TANA MEEK LOC: EN U#:[id number] AGE/SX: 76/F ROOM: RE06/30/[address]: Dr. Maryjo Nunez MD : 1945 BED: DIS: 06/30/2022 SPEC #: [id number] RECD: 07/01/22 13:15 STATUS: MARY ANNE REQ #: [id number] KADY: 06/30/22 13:[address]: Maryjo Nunez DEPT: IMMUNOHISTOCHEMISTRY RECD BY: Melissa Merrill ENTERED: 07/01/22 13:15 SP TYPE: IMMUNO OTHR DR: Dr. Merna Bowen MD Tissues: Stomach, NOS Procedures: H Pylori (initial) PHYSICIAN & INSTITUTION [place] [address] SPECIMEN INFORMATION: Tissue Source: Body of stomach Clinical Info: PEG tube exchange Specimen Number: [id number] CPT code: 37924 METHODOLOGY: Deparaffinized sections of prefer/formalin-fixed tissue or PAP/DQ stained slides are incubated with monoclonal/polyclonal antibodies/oligonucleotide probes. Localization is made via biotin free immunoperoxidase method. Appropriate controls are performed and reacted as expected. Results on target cell population are indicated in the following table: RESULTS: ANTIBODY / CLONE RESULT H Pylori (polyclonal) negative These tests were developed and their performance characteristics determined by [facility]. They may not have been cleared or approved by the U.S. Food and Drug Administration. The FDA has determined that such clearance or approval is not necessary. The above immunohistochemical/dualISH markers are ordered and reviewed by the Pathologist. INTERPRETATION: Body of stomach, biopsy: Negative for Helicobacter pylori organisms. JAXON:erasmo 07/02/2022
--- NOTE | 2022-06-30 13:46 | HP.PCM_ITS ---
History and Physical Date of Admission: 06/30/22 Date of Service:? 06/26/22 MR#: [id number] Acct: [id number] Name:TANA SAHA Rep #: [id number] : 1945 ? ? Provider: Dr. Maryjo Nunez MD Age/Sex:? 76/F ? ? Location: [facility] Status: Signed Intake Vital Signs ? 06/26/2307:57 Height 5 ft Weight: 99 lb BMI 19.3 BP 129/81 H Blood Pressure Location Lt brachial Position Sitting Respiration 17 Pulse 91 Pulse Source Monitor Temp 98 F Temp Source Temporal Pulse Oximetry (%) 98 Oxygen Delivery Method room air Intake Visit Reasons:?PEG tube replacement Chief Complaint: peg tube placement Is patient in pain?: No Allergies adhesive Allergy (Verified 06/26/22 09:17) Rashatorvastatin [From Lipitor] Allergy (Verified 06/26/22 09:17) Rashcefaclor [From Ceclor] Allergy (Verified 06/26/22 09:17) HivesCephalosporins Allergy (Verified 06/26/22 09:17) Unknownciprofloxacin [From Cipro] Allergy (Verified 06/26/22 09:17) Hiveshydrocodone [From [place]] Allergy (Verified 06/26/22 09:17) Rashhydromorphone [From Dilaudid] Allergy (Verified 06/26/22 09:17) RashMacrolide Antibiotics Allergy (Verified 06/26/22 09:17) Hivesoxycodone [From Percocet] Allergy (Verified 06/26/22 09:17) Rashpropoxyphene [From Darvocet-N] Allergy (Verified 06/26/22 09:17) Rashsimvastatin [From Zocor] Allergy (Verified 06/26/22 09:17) UnknownSulfa (Sulfonamide Antibiotics) Allergy (Verified 06/26/22 09:17) Rashcimetidine [From Tagamet] Adverse Reaction (Verified 06/26/22 09:17) Upset Stomacherythromycin base Adverse Reaction (Verified 06/26/22 09:17) Upset Stomach Medications Acetaminophen [Acetaminophen ER] 650 mg PO Q8H PRN PRN Pain 01/06/19 [Rx Confirmed 06/26/22] buspirone 5 mg tablet 5 mg PO BID@0730,1630 01/06/19 [Rx Confirmed 06/26/22] carbidopa 25 mg-levodopa 100 mg tablet 1 tab PO BID PRN tremors 01/06/19 [Rx Confirmed 06/26/22] carbidopa 25 mg-levodopa 100 mg-entacapone 200 mg tablet 200 mg PO 0730,1030,1330,1630 parkinsons ##1 01/06/19 [Rx Confirmed 06/26/22] carbidopa 25 mg-levodopa 100 mg-entacapone 200 mg tablet 200 mg PO 1930,2230 ##1 01/06/19 [Rx Confirmed 06/26/22] food supplemt, lactose-reduced 0.08 gram-1.5 kcal/mL oral liquid 120 ml PO 4X/DAY 01/06/19 [Rx Confirmed 06/26/22] loratadine 10 mg tablet 10 mg PO DAILY 01/06/19 [Rx Confirmed 06/26/22] melatonin 10 mg sublingual tablet 10 mg PO QHS 01/06/19 [Rx Confirmed 06/26/22] pantoprazole 20 mg tablet,delayed release 20 mg PO BREAKFAST 01/06/19 [Rx Confirmed 06/26/22] paroxetine HCl 10 mg tablet 10 mg PO DAILY 01/06/19 [Rx Confirmed 06/26/22] sennosides 8.6 mg-docusate sodium 50 mg tablet 2 tab PO BID 01/06/19 [Rx Confirmed 06/26/22] aspirin 81 mg tablet,delayed release (Adult Low Dose Aspirin) 81 mg PO DAILY 06/26/22 [History Confirmed 06/26/22] clonazepam 0.5 mg tablet 0.5 mg PO TID 06/26/22 [History Confirmed 06/26/22] entacapone 200 mg tablet 200 mg PO 6XD 06/26/22 [History Confirmed 06/26/22] ferrous sulfate 220 mg (44 mg iron)/5 mL oral elixir 220 mg PO BID 06/26/22 [History Confirmed 06/26/22] mirtazapine 15 mg tablet (Remeron) 15 mg PO DAILY 06/26/22 [History Confirmed 06/26/22] pimavanserin 34 mg capsule 34 mg PO DAILY 06/26/22 [History Confirmed 06/26/22] pravastatin 40 mg tablet 40 mg PO DAILY 06/26/22 [History Confirmed 06/26/22] trazodone 100 mg tablet 100 mg PO DAILY 06/26/22 [History Confirmed 06/26/22] vilazodone 20 mg tablet 20 mg PO DAILY 06/26/22 [History Confirmed 06/26/22] PFSH Medical History?(Updated 06/26/22 @ 08:57 by Ariane Hook) Anxiety Depression GERD (gastroesophageal reflux disease) Insomnia Social History? Smoking Status:? Former smoker (x 20 years 1 pack per 2 weeks cessation in ) HPI HPI HPI: 76-year-old female presents due to malfunction of PEG from [facility] [place]note 2[place] with a caregiver/bulk driver..? Patient previously had PEG placed in January 2022 due to previous stroke/Parkinson's disease for nutrition.? Patient's end Of the PEG break off also the PEG tube looks very worn and needs to be exchanged.? Patient is able to take some by mouth that is thickened but otherwise does get daily tube feeds.? 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 ROS General General: Yes weight change; No appetite, fatigue, colon cancer, breast cancer or weakness HEENT HEENT: Yes difficulty swallowing; No eye injury, eye surgery, swollen glands or hoarseness Endo Endocrine: No thyroid disease, diabetes mellitus, thyroid cancer, Hair loss, heat intolerance or cold intolerance Skin Skin: No rash or changing moles Musc Musculoskeletal: No back problems, arthritis, rheumatoid arthritis, gout or joint pain Psych Psychiatric: Yes depression and anxiety; No hearing voices Resp Respiratory: No shortness of breath, No sleep apnea, No cough, No COPD, No asthma, No emphysema and No wheezing Gastro Gastrointestinal: No abdominal pain, No nausea or vomiting, No diarrhea, No constipation, No blood in stool, Yes acid reflux, No hemorrhoids, No ulcers, No gallbladder problem and No black,tarry stools Additional Details: peg tube Calvin Hematologic: No blood thinners, No blood disorders, No bleeding, Yes anemia and No blood clots Neuro Neurologic: No system reviewed and no additional complaints, except as documented, No as per HPI, No abnormal gait, No abnormal hearing, No abnormal movements, No abnormal speech, No behavioral changes, No burning sensations, No confusion, No convulsions, No disequilibrium, No dizziness, No localized weakness, No frequent falls, No headache(s), No lack of coordination, No loss of vision, No memory loss, No numbness, No other visual disturbances, No radicular pain, No restless legs, No sensory deficit, No syncope, No tingling, No tremor(s), No weakness and Yes other (TIA) Exam Const General: comfortable and no acute distress [facility] Head: normocephalic and atraumatic Neck Neck: supple Resp Effort & Inspection: normal respiratory effort Cardio Rate: regular rate GI Inspection: other (PEG tube in place-PEG tube is very worn & distal cap is missing to the PEG) Palpation: soft and no guarding Skin General: no rashes or lesions noted Psych Affect: flat Assessment and Plan Assessment and Plan (1) PEG tube malfunction: ?Status:?Acute Plan Was able to get patient in For the PEG tube.? We will plan to schedule EGD for exchange as this appears to be a tube that may break off at the internal bumper and not come out through the skin as the tube is quite worn.? We will also plan discussed with patient's son did make a phone call to him and left a voicemail just for him to call the office back. I have discussed the above with the patient. I have offered the patient esophagogastroduodenoscopy for evaluation exchange of PEG tube. I have explained the risks/benefits of the procedure and described the procedure.? I have discussed the risks with the patient, including but not limited to:? infection, bleeding, perforation of the GI tract requiring emergency surgery, inability to complete the procedure, injury to any internal organs, complications of anesthesia, etc. - the patient understands and agrees to proceed. I have answered all the patient's questions to the patient's satisfaction and the patient/caregiver has no further questions. Maryjo Nunez M.D. Pager: [phone] [facility] [address] [place] [address], [address] [place] [address] Office: [phone] Coding Level of Care Code Off vis,new,level 3 Diagnoses PEG tube malfunction? K94.23 06/26/22 1121 <Electronically signed by Maryjo Nunez MD> Date Maryjo Nunez MD
[2022-06-30] MEDS: Clindamycin 900 MG/50 ML BAG 75 MG IV (13:54)
--- NOTE | 2022-06-30 14:26 | OP.EGD_ITS ---
Patient Name: Kelsy Ruano Procedure Date: 06/30/2022 1:03 PM Date of : 1945 Age: 76 Procedure: Upper GI endoscopy Indications: Routine exchange PEG tube Providers: Maryjo Nunez MD Medicines: Monitored Anesthesia Care Patient Profile: This is a 76 year old female. Complications: No immediate complications. Procedure: Pre-Anesthesia Assessment: - Prior to the procedure, a History and Physical was performed, and patient medications and allergies were reviewed. The patient's tolerance of previous anesthesia was also reviewed. The risks and benefits of the procedure and the sedation options and risks were discussed with the patient. All questions were answered, and informed consent was obtained. Prior Anticoagulants: The patient has taken no previous anticoagulant or antiplatelet agents. ASA Grade Assessment: Per anesthesia. After reviewing the risks and benefits, the patient was deemed in satisfactory condition to undergo the procedure. After obtaining informed consent, the endoscope was passed under direct vision. Throughout the procedure, the patient's blood pressure, pulse, and oxygen saturations were monitored continuously. The gastroscope was introduced through the mouth, and advanced to the second part of duodenum. The upper GI endoscopy was accomplished without difficulty. The patient tolerated the procedure well. Scope In: 1:58:13 PM Scope Out: 2:08:34 PM Total Procedure Duration Time 0 hours 10 minutes 21 seconds Findings: The Z-line was variable [cm from incisors]. The examined duodenum was normal. Diffuse moderate inflammation characterized by adherent blood and erythema was found in the gastric body. Biopsies were taken with a cold forceps for histology. Biopsies were taken with a cold forceps for Helicobacter pylori cultures. The PEG required removal because it was broken. The PEG was cut externally, grasped, and removed with the scope. Removal was easily accomplished. A 20 Fr EndoVive Safety gastrostomy tube was lubricated. The guide wire was passed through the existing G-tube port and snared endoscopically. The endoscope and snare were then removed, pulling the wire out through the mouth. The g-tube was tied to the guidewire, pulled through the mouth into the stomach and then pulled out from the stomach through the skin. The bumper was attached to the gastrostomy tube. The feeding tube was then cut to an appropriate length. The final position of the gastrostomy tube was confirmed by relook endoscopy, and skin marking noted to be 3 cm at the external bumper. The final tension and compression of the abdominal wall by the PEG tube and external bumper were checked and revealed that the bumper was loose and not touching the skin. The tube was capped, and the tube site was cleaned and dressed. Impression: - Z-line variable. - Normal examined duodenum. - Gastritis. Biopsied. - The PEG was removed because it was broken, and replaced with a PEG. Recommendation: - Discharge patient to a [facility]. - Resume previous diet. - Continue present medications. - Use Nexium (esomeprazole) 40 mg PO daily [duration]. - Await pathology results. Procedure Code(s): --- Professional --- 75580, Esophagogastroduodenoscopy, flexible, transoral; with directed placement of percutaneous gastrostomy tube 36127, Esophagogastroduodenoscopy, flexible, transoral; with biopsy, single or multiple Diagnosis Code(s): --- Professional --- K22.8, Other specified diseases of esophagus K29.70, Gastritis, unspecified, without bleeding K94.23, Gastrostomy malfunction Z43.1, Encounter for attention to gastrostomy CPT copyright 2017 [employer]. All rights reserved. The codes documented in this report are preliminary and upon account development specialist review may be revised to meet current compliance requirements. MD Maryjo Krishnamurthy MD 06/30/2022 2:26:16 PM This report has been signed electronically. Number of Addenda: 0 Note Initiated On: 06/30/2022 1:03 PM
--- NOTE | 2022-06-30 14:27 | OP.CCLET_ITS ---
06/30/2022 Chad Zamorano Re : Upper GI endoscopy procedure for Kelsy Ruano Dear Lona This procedure was performed on Thursday, June 30, 2022. My impressions and recommendations are as follows: Impressions : - Z-line variable. - Normal examined duodenum. - Gastritis. Biopsied. - The PEG was removed because it was broken, and replaced with a PEG. Recommendations : - Discharge patient to a care home. - Resume previous diet. - Continue present medications. - Use Nexium (esomeprazole) 40 mg PO daily [duration]. - Await pathology results. My findings are described in the full procedure note, which is enclosed. If I can be of further assistance, please feel free to contact me at Doctor phone number(s): , Work: . Sincerely, MD Maryjo Krishnamurthy MD 06/30/2022 2:26:16 PM This report has been signed electronically.
== END 2022-06-30 15:56 | disposition skilled nursing facility (03) ==
LOC: EN 12:25 → AC 12:27
PROVIDERS: PCP Internal Medicine Geriatric Medicine; Referring Provider Internal Medicine Geriatric Medicine; Visit Provider Surgery
PROC: 0DJ08ZZ Inspection of Upper Intestinal Tract, Via Natural or Artificial Opening Endoscopic (ICD-10-PCS; CPT 43235; principal; 2022-06-30 13:25)
DX: Z43.1 Encounter for attention to gastrostomy (principal); K94.23 Gastrostomy malfunction; Z87.891 Personal history of nicotine dependence; K29.70 Gastritis, unspecified, without bleeding; K22.89 Other specified disease of esophagus; Z79.899 Other long term (current) drug therapy; Z79.82 Long term (current) use of aspirin; F41.9 Anxiety disorder, unspecified; F32.A Depression, unspecified; K21.9 Gastro-esophageal reflux disease without esophagitis
CPT/HCPCS: 43239; 43246; 88305; 88342; J7120; J2405

== ENCOUNTER 2023-02-03 09:59 | Day surgery (SDC) | payer MEDICARE, OTHER, SELFPAY ==
[2023-02-03] VITALS (10 sets, daily range): BP systolic 72–136; BP diastolic 49–74; PULSE 62–78; RESP 16–17; TEMP 36.2–36.6; O2SAT 97–100; BMI 23.8
--- NOTE | 2023-02-03 10:20 | PCM.HP.BLA ---
History and Physical Date of Admission: 02/03/23 Date of Service: 01/30/23 MR#: [id number] Acct: [id number] Name: TANA MEEK Rep #: [id number] : 1945 Provider: Dr. Maryjo Nunez MD Age/Sex: 77/F Location: [facility] Status: Signed Intake Vital Signs 06/30/2312:06 01/30/2309:48 Height 4 ft 11 in 4 ft 11 in Weight: 122 lb BMI 24.6 BP 121/75 H Blood Pressure Location Rt brachial Position Sitting Respiration 16 Intake Visit Reasons: PEG TUBE REPLACEMENT Chief Complaint: peg tube replacement Black Pickler Required: No Is patient in pain?: No Allergies adhesive Allergy (Verified 01/30/23 09:48) Rashatorvastatin [From Lipitor] Allergy (Verified 01/30/23 09:48) Rashcefaclor [From Ceclor] Allergy (Verified 01/30/23 09:48) HivesCephalosporins Allergy (Verified 01/30/23 09:48) Unknownciprofloxacin [From Cipro] Allergy (Verified 01/30/23 09:48) Hiveshydrocodone [From Waelder] Allergy (Verified 01/30/23 09:48) Rashhydromorphone [From Dilaudid] Allergy (Verified 01/30/23 09:48) RashMacrolide Antibiotics Allergy (Verified 01/30/23 09:48) Hivesoxycodone [From Percocet] Allergy (Verified 01/30/23 09:48) Rashpropoxyphene [From Darvocet-N] Allergy (Verified 01/30/23 09:48) Rashsimvastatin [From Zocor] Allergy (Verified 01/30/23 09:48) UnknownSulfa (Sulfonamide Antibiotics) Allergy (Verified 01/30/23 09:48) Rashcimetidine [From Tagamet] Adverse Reaction (Verified 01/30/23 09:48) Upset Stomacherythromycin base Adverse Reaction (Verified 01/30/23 09:48) Upset Stomach Medications aspirin 81 mg tablet,delayed release (Adult Low Dose Aspirin) 81 mg feeding tube DAILY 06/26/22 [History Confirmed 01/30/23] clonazepam 0.5 mg tablet 0.5 mg feeding tube TID 06/26/22 [History Confirmed 01/30/23] entacapone 200 mg tablet 200 mg feeding tube 6XD 06/26/22 [History Confirmed 01/30/23] ferrous sulfate 220 mg (44 mg iron)/5 mL oral elixir 220 mg feeding tube BID 06/26/22 [History Confirmed 01/30/23] mirtazapine 15 mg tablet (Remeron) 15 mg feeding tube DAILY 06/26/22 [History Confirmed 01/30/23] pimavanserin 34 mg capsule 34 mg feeding tube DAILY 06/26/22 [History Confirmed 01/30/23] pravastatin 40 mg tablet 40 mg feeding tube DAILY 06/26/22 [History Confirmed 01/30/23] trazodone 100 mg tablet 100 mg feeding tube DAILY 06/26/22 [History Confirmed 01/30/23] vilazodone 20 mg tablet 20 mg feeding tube DAILY 06/26/22 [History Confirmed 01/30/23] Acetaminophen [Acetaminophen ER] 650 mg G-tube Q8H PRN PRN Pain 06/27/22 [History Confirmed 01/30/23] ascorbic acid (vitamin C) 500 mg feeding tube BID 06/27/22 [History Confirmed 01/30/23] atropine 1 % eye drops 2 drp sublingual 4X/DAY 06/27/22 [History Confirmed 01/30/23] carbidopa 25 mg-levodopa 100 mg tablet 1 tab feeding tube BID PRN Anxiety 06/27/22 [History Confirmed 01/30/23] carbidopa 25 mg-levodopa 100 mg tablet 1 tab feeding tube Q4H 06/27/22 [History Confirmed 01/30/23] cyanocobalamin (vitamin B-12) 500 mcg tablet (Vitamin B-12) 500 mcg feeding tube DAILY 06/27/22 [History Confirmed 01/30/23] folic acid 1 mg tablet 2 mg feeding tube DAILY 06/27/22 [History Confirmed 01/30/23] lactose-reduced food with fiber oral liquid 75 ml feeding tube QHS 06/27/22 [History Confirmed 01/30/23] bisacodyl 10 mg rectal suppository (Dulcolax (bisacodyl)) 10 mg [place] DAILY PRN 01/30/23 [History Confirmed 01/30/23] magnesium hydroxide 2,400 mg/10 mL oral suspension (Milk Of Magnesia Concentrated) 30 ml PO QHS PRN 01/30/23 [History Confirmed 01/30/23] multivitamin 1 tab PO DAILY 01/30/23 [History Confirmed 01/30/23] pantoprazole 40 mg tablet,delayed release 40 mg PO 01/30/23 [History Confirmed 01/30/23] PFSH Medical History Anemia Anxiety Bladder disease Depression Former smoker Gastric reflux GERD (gastroesophageal reflux disease) Insomnia Restless legs Uses wheelchair Walker as ambulation aid Wears glasses Surgical History History of appendectomy History of cholecystectomy History of esophagogastroduodenoscopy (EGD) History of hysterectomy History of tonsillectomy S/P percutaneous endoscopic gastrostomy (PEG) tube placement Social History Smoking Status: Former smoker HPI HPI HPI: 77-year-old female presents due to malfunctioning PEG tube. Patient's PEG tube has become harder to flush. Patient does get tube feeds overnight and also her medications through the tube. Patient is currently at [facility]. Patient had her tube replaced by myself in June 2022 as her previous tube looked quite eroded and fragile after only about 8 months of it being placed. Did discuss with the patient's son who states that the tube has not been taking care of properly at her current location. ROS General Additional Details: Due to past medical history /Parkinson's unable to do review of systems. Gastro Additional Details: peg tube Neuro Neurologic: Yes other (TIA) Exam Const General: comfortable and no acute distress [facility] Head: normocephalic and atraumatic Neck Neck: supple Resp Effort & Inspection: normal respiratory effort Cardio Rate: regular rate GI Inspection: other (PEG tube in place-very worn and appears fragile-cap even has debris) Palpation: soft and no guarding Other: PEG tube has blackish discoloration likely due to not properly being flushed daily and after meds- tube clamp was unclamped Skin General: no rashes or lesions noted Psych Affect: flat Assessment and Plan Assessment and Plan (1) PEG tube malfunction: Status: Acute Orders: Orders EGD Today R13.10 - Dysphagia, unspecified, R29.90 - Unspecified symptoms and signs involving the nervous system Plan Did call and discussed with patient's son as he is the POA. Patient's PEG tube is in poor condition tube appears quite friable would be concerned if it were to try and just pull it out it will break. Will plan to remove PEG tube in endoscopy with an EGD. Will plan to place balloon G-tube if I am able to obtain 1 as in the future this will be easier to exchange in office. Does not appear that the tube has been properly flushed regularly as a clamp is not even placed and the entire tube appears to be eroded along with the new cath that they put on at the facility is hard plastic and still has food remnants/debris in the new cap. I have discussed the above with the patient. I have offered the patient esophagogastroduodenoscopy for PEG tube exchange I have explained the risks/benefits of the procedure and described the procedure. I have discussed the risks with the patient, including but not limited to: infection, bleeding, perforation of the GI tract requiring emergency surgery, inability to complete the procedure, injury to any internal organs, complications of anesthesia, etc. - the patient understands and agrees to proceed. I have answered all the patient's questions to the patient's satisfaction and the patient has no further questions. Maryjo Nunez M.D. Pager: [phone] [facility] [address] [place] [address], [address] [place] [address] Office: [phone] Coding Level of Care Code Off vis,est,level 3 Diagnoses PEG tube malfunction K94.23 01/30/23 1058 <Electronically signed by Maryjo Nunez MD> Date Maryjo Nunez MD
[2023-02-03] MEDS: Lactated Ringers 1,000 ML 15 ML IV (10:36)
[2023-02-03] MEDS: Clindamycin 900 MG/50 ML BAG 75 MG IV (11:14)
--- NOTE | 2023-02-03 11:37 | OP.CCLET_ITS ---
02/03/2023 Merna Bowen MD [address] [facility] [place] [address] Re : Upper GI endoscopy procedure for Kelsy Ruano Dear Dr. Bowen This procedure was performed on Friday, February 03, 2023. My impressions and recommendations are as follows: Impressions : - Normal examined duodenum. - The examination was otherwise normal. OTHER - No specimens collected. Recommendations : - Discharge patient to a [place]. - Please follow the post-PEG recommendations including: may use PEG today for meds and water, flush PEG daily with 60 ml water and clean site with soap and water daily and dry thoroughly. - Continue present medications. My findings are described in the full procedure note, which is enclosed. If I can be of further assistance, please feel free to contact me at Doctor phone number(s): , Work: . Sincerely, MD Maryjo Krishnamurthy MD 02/03/2023 11:36:22 AM This report has been signed electronically.
--- NOTE | 2023-02-03 11:37 | OP.EGD_ITS ---
Patient Name: Kelsy Ruano Procedure Date: 02/03/2023 11:10 AM Date of : 1945 Age: 77 Procedure: Upper GI endoscopy Indications: Exchange PEG tube due to malfunctioning gastrostomy tube Providers: Maryjo Nunez MD Referring MD: Maryjo Nunez MD Medicines: Monitored Anesthesia Care Patient Profile: This is a 77 year old female. Complications: No immediate complications. Procedure: Pre-Anesthesia Assessment: - Prior to the procedure, a History and Physical was performed, and patient medications and allergies were reviewed. The patient's tolerance of previous anesthesia was also reviewed. The risks and benefits of the procedure and the sedation options and risks were discussed with the patient. All questions were answered, and informed consent was obtained. Prior Anticoagulants: The patient has taken no anticoagulant or antiplatelet agents. ASA Grade Assessment: Per anesthesia. After reviewing the risks and benefits, the patient was deemed in satisfactory condition to undergo the procedure. After obtaining informed consent, the endoscope was passed under direct vision. Throughout the procedure, the patient's blood pressure, pulse, and oxygen saturations were monitored continuously. The gastroscope was introduced through the mouth, and advanced to the second part of duodenum. The upper GI endoscopy was accomplished without difficulty. The patient tolerated the procedure well. Scope In: 11:21:11 AM Scope Out: 11:24:36 AM Total Procedure Duration Time 0 hours 3 minutes 25 seconds Findings: The examined duodenum was normal. The PEG required removal because it was clogged, tube was very worn. Cap was snared and tube was cut. no difficulty. A External Removable 20 Fr EndoVive balloon gastrostomy tube was lubricated. G-tube was pushed through the tract easily into the stomach- under endoscopic visualization. The final position of the gastrostomy tube was confirmed skin marking noted to be 3 cm at the external bumper. The final tension and compression of the abdominal wall by the PEG tube and external bumper were checked bumper loose and lightly touching the abd wall. The tube was capped, and the tube site was cleaned and dressed. The exam was otherwise without abnormality. Impression: - Normal examined duodenum. - The examination was otherwise normal. OTHER - No specimens collected. Recommendation: - Discharge patient to a longterm. - Please follow the post-PEG recommendations including: may use PEG today for meds and water, flush PEG daily with 60 ml water and clean site with soap and water daily and dry thoroughly. - Continue present medications. Procedure Code(s): --- Professional --- 78276, Esophagogastroduodenoscopy, flexible, transoral; diagnostic, including collection of specimen(s) by brushing or washing, when performed (separate procedure) Diagnosis Code(s): --- Professional --- K94.23, Gastrostomy malfunction CPT copyright 2021 [employer]. All rights reserved. The codes documented in this report are preliminary and upon cpc coder review may be revised to meet current compliance requirements. MD Maryjo Krishnamurthy MD 02/03/2023 11:36:22 AM This report has been signed electronically. Number of Addenda: 0 Note Initiated On: 02/03/2023 11:10 AM
--- NOTE | 2023-02-03 12:48 | SUR.PHASEII ---
CALLED AND GAVE REPORT TO AMARA AT [facility]. ALL QUESTIONS ANSWERED
== END 2023-02-03 13:04 | disposition home or self-care (01) ==
LOC: SDC 10:02 → AC 10:03
PROVIDERS: PCP Internal Medicine Geriatric Medicine; Referring Provider Internal Medicine Geriatric Medicine; Visit Provider Surgery
PROC: 0DJ08ZZ Inspection of Upper Intestinal Tract, Via Natural or Artificial Opening Endoscopic (ICD-10-PCS; CPT 43235; principal; 2023-02-03 11:10)
DX: K94.23 Gastrostomy malfunction (principal); D64.9 Anemia, unspecified; Z87.891 Personal history of nicotine dependence; G47.00 Insomnia, unspecified; K21.9 Gastro-esophageal reflux disease without esophagitis; R13.10 Dysphagia, unspecified; R29.90 Unspecified symptoms and signs involving the nervous system
CPT/HCPCS: 43246; J7120; J2405

== ENCOUNTER 2023-04-13 18:04 | Emergency (ER) | payer MEDICARE, OTHER, MEDICAID, SELFPAY ==
[2023-04-13 18:05] VITALS: BP 151/76; PULSE 102; RESP 18; TEMP 36.2; O2SAT 100
[2023-04-13 19:52] VITALS: BP 151/76; PULSE 102; RESP 18; TEMP 36.2; O2SAT 100
[2023-04-13 20:01] VITALS: BMI 26.2
--- NOTE | 2023-04-13 21:07 | EX.ED.DYSGE1 ---
HPI History of Present Illness Chief Complaint: Other, Pain/Inj Detail of Chief Complaint: 77-year-old female from [place] [facility] [place] facility PEG tube came out Informant: SNF Onset/Context/Timing Onset: Today Narrative Narrative: 77-year-old female unable to give me any history. There is a worker from her extended care facility with her it said that the PEG or feeding tube came out sometime today. I did use it this morning. She has had this in for some time. Patient does eat and drink liquids without the feeding tube the primary use of her medications. Recent Illness/Hospitalization: No PFSH PFSH Medical History Anemia Anxiety Arthritis Bladder disease Depression Dysphagia Former smoker Gastric reflux GERD (gastroesophageal reflux disease) High cholesterol Insomnia Parkinson's disease Restless legs Stroke/cerebrovascular accident Uses wheelchair Walker as ambulation aid Wears glasses Home Medications aspirin 81 mg tablet,delayed release (Adult Low Dose Aspirin) 81 mg feeding tube DAILY 06/26/22 [History Last Taken Unknown] clonazepam 0.5 mg tablet 0.5 mg feeding tube TID 06/26/22 [History Last Taken Unknown] entacapone 200 mg tablet 200 mg feeding tube 6XD 06/26/22 [History Last Taken 02/03/23] ferrous sulfate 220 mg (44 mg iron)/5 mL oral elixir 220 mg feeding tube BID 06/26/22 [History Last Taken Unknown] mirtazapine 15 mg tablet (Remeron) 15 mg feeding tube DAILY 06/26/22 [History Last Taken Unknown] pimavanserin 34 mg capsule 34 mg feeding tube DAILY 06/26/22 [History Last Taken Unknown] pravastatin 40 mg tablet 40 mg feeding tube DAILY 06/26/22 [History Last Taken Unknown] trazodone 100 mg tablet 100 mg feeding tube DAILY 06/26/22 [History Last Taken 02/03/23] vilazodone 20 mg tablet 20 mg feeding tube DAILY 06/26/22 [History Last Taken 02/03/23] Acetaminophen [Acetaminophen ER] 650 mg G-tube Q8H PRN PRN Pain 06/27/22 [History Last Taken Unknown] ascorbic acid (vitamin C) 500 mg feeding tube BID 06/27/22 [History Last Taken Unknown] carbidopa 25 mg-levodopa 100 mg tablet 1 tab feeding tube BID PRN Anxiety 06/27/22 [History Last Taken Unknown] carbidopa 25 mg-levodopa 100 mg tablet 1 tab feeding tube Q4H 06/27/22 [History Last Taken 02/03/23] folic acid 1 mg tablet 2 mg feeding tube DAILY 06/27/22 [History Last Taken Unknown] lactose-reduced food with fiber oral liquid 75 ml feeding tube QHS 06/27/22 [History Last Taken Unknown] magnesium hydroxide 2,400 mg/10 mL oral suspension (Milk Of Magnesia Concentrated) 30 ml PO QHS PRN constipation 01/30/23 [History Last Taken Unknown] multivitamin 1 tab PO DAILY 01/30/23 [History Last Taken Unknown] pantoprazole 40 mg tablet,delayed release 40 mg PO Q12H 01/30/23 [History Last Taken 02/03/23] Allergy/AdvReac Type Severity Reaction Status Date / Time adhesive Allergy Rash Verified 04/13/23 18:05 atorvastatin [From Lipitor] Allergy Rash Verified 04/13/23 18:05 cefaclor [From Ceclor] Allergy Hives Verified 04/13/23 18:05 Cephalosporins Allergy Unknown Verified 04/13/23 18:05 ciprofloxacin [From Cipro] Allergy Hives Verified 04/13/23 18:05 hydrocodone [From Mccomb] Allergy Rash Verified 04/13/23 18:05 hydromorphone [From Dilaudid] Allergy Rash Verified 04/13/23 18:05 Macrolide Antibiotics Allergy Hives Verified 04/13/23 18:05 oxycodone [From Percocet] Allergy Rash Verified 04/13/23 18:05 propoxyphene Allergy Rash Verified 04/13/23 18:05 [From Darvocet-N] simvastatin [From Zocor] Allergy Unknown Verified 04/13/23 18:05 Sulfa (Sulfonamide Allergy Rash Verified 04/13/23 18:05 Antibiotics) cimetidine [From Tagamet] AdvReac Upset Verified 04/13/23 18:05 Stomach erythromycin base AdvReac Upset Verified 04/13/23 18:05 Stomach Surgical History History of appendectomy History of cholecystectomy History of esophagogastroduodenoscopy (EGD) History of hysterectomy History of tonsillectomy S/P percutaneous endoscopic gastrostomy (PEG) tube placement Social History Smoking Status: Former smoker ROS ROS ED ROS Narrative No recent illness per staff. Patient is a very limited informant. Review of Systems ROS Unobtainable: other Constitutional Constitutional ED: Denies chills or fever(s) Eyes Eyes: Denies blurry vision ENT ENT ED: Denies ear pain Cardiovascular Cardiovascular: Denies chest pain Respiratory/Chest Respiratory/Chest: Denies cough Gastrointestinal Gastrointestinal: Denies abdominal pain Genitourinary Genitourinary ED: Denies dysuria or hematuria Musculoskeletal Musculoskeletal: Denies arthralgias Integumentary Denies abscess Neurologic Neurologic: Denies headache(s) Psychiatric Psychiatric: Denies anxiety Hematologic/Lymphatic Hematologic/Lymphatic: Reports none Allergic/Immunologic Allergic/Immunologic ED: Denies mouth swelling or tongue swelling EXAM Physical Exam Narrative Exam Narrative: 77-year-old female vital signs stable afebrile does not look septic or toxic. H EENT exam moist mucous members. Neck nontender. No trauma. Pupils round reactive light. Lungs clear to auscultation bilaterally. Heart regular rhythm rate about 100 no murmur. Chest wall and ribs nontender. Abdomen soft nontender. Left upper quadrant ostomy site. No peritoneal signs. No distention. Extremities are nontender. Neurologically her eyes are open she says very limited words. She does move her extremities but seems overall weak. Reportedly has a history of Parkinson's. Const Vital Signs: 04/13/23 18:05 04/13/23 19:52 Temperature 97.2 F L 97.2 F L Temperature Source Temporal Temporal Pulse Rate 102 H 102 H Respiratory Rate 18 18 Blood Pressure 151/76 H 151/76 H Blood Pressure Mean 101 101 Pulse Ox 100 100 Oxygen Delivery Method Room Air Room Air Positive well nourished and well developed; Negative for cachectic or contractures General Appearance ED: well developed and NAD; Negative for cachectic, contractures, cyanotic, diaphoretic or pallor Nutritional Appearance: Negative for cachectic HEENT Reports moist mucous membranes Negative for trauma or tenderness Eyes PERRL and EOMs intact bilaterally General Eye ED: Negative for pale conjunctiva or scleral icterus Neck no lymphadenopathy, supple and no JVD General: Negative for tenderness Lymph Lymphatic: Negative for other Chest Wall inspection of chest normal and palpation of chest normal Chest: Negative for other Resp normal respiratory effort and clear to auscultation bilaterally Effort and Inspection: Negative for retractions Auscultation: Negative for rales, rhonchi or wheezes Cardio regular rate, regular rhythm, S1 normal heart sound, S2 normal heart sound and no murmurs GI normal to inspection, nondistended, normoactive bowel sounds, non-tender, non-distended and no masses GI Narrative: Left upper quadrant ostomy. Inspection: Negative for abdominal distention Auscultation: normoactive bowel sounds Palpation: soft; Negative for tender or guarding Back/Spine no CVA tenderness Extremity Negative for normal to inspection Extremity Narrative: Nontender. No deformity. Generalized weakness both upper and lower extremities. Neuro No oriented x3 Neuro Narrative: Eyes open. Follows limited commands. Does speak. Sensorium / Orientation: alert Motor Exam: general weakness; Negative for strength 5/5 throughout Psych mental status grossly normal Attitude: No agitated Mood & Affect: Negative for depressed or tearful Skin no rashes or lesions noted and no wounds General Skin Exam: Negative for jaundice or pallor Lesions: No lesion noted Rashes: No rashes noted Trauma: Negative for abrasion Wounds: Negative for wounds noted MDM MDM MDM Narrative Medical decision making narrative: 77-year-old female feeding tube came out. We will attempt to replace it seems like its been in for a period of time and just came out sometime this afternoon. Screening labs are being obtained. Repeat exam patient doing well at 10:15 PM. She will be discharged back to the extended care facility. Increase fluids. History & Record Review Discussion w/independent historian: Other Additional record(s) reviewed:: Prior inpatient record, Prior outpatient record and Prior ED visit Lab Data Attestation: I reviewed the patient's lab results. Lab results narrative: CBC shows a white count of 7. H&H 10.5 and 32. Platelets 297. Consistent with prior labs. Chemistries show a gap of 4. BUN and creatinine are 30 and 1 consistent with mild dehydration. Glucose 102. KUB with Gastrografin shows the PEG tube in appropriate position with Gastrografin in the stomach and first part of small intestine. Labs: Laboratory Results - last 24 hr 04/13/23 21:27 WBC 7.1 RBC 3.62 L Hgb 10.5 L Hct 32.7 L MCV 90.3 MCH 29.0 MCHC 32.1 RDW Std Deviation 45.4 H RDW Coeff of Vitor 13.6 Plt Count 297 MPV 9.7 Immature Gran % (Auto) 0.300 Neut % (Auto) 53.9 Lymph % (Auto) 33.9 Duval % (Auto) 9.6 Eos % (Auto) 2.0 Baso % (Auto) 0.3 Absolute Neuts (auto) 3.8 Absolute Lymphs (auto) 2.40 Nucleated RBC % 0 Sodium 140 Potassium 4.1 Chloride 109 H Carbon Dioxide 27.0 Anion Gap 4 L BUN 30 H Creatinine 1.03 H Estim Creat Clear Calc 43.18 Est GFR (MDRD) Af Amer 67 Est GFR (MDRD) Non-Af 55 L BUN/Creatinine Ratio 29.1 H Glucose 102 Calcium 9.2 Discharge Plan Triage Chief Complaint: Other, Pain/Inj ED Provider: Nelson Orlando Dx/Rx/DC Orders Clinical Impression: PEG tube malfunction, Acute dehydration, Hx of Parkinson's disease, Chronic anemia Instructions: ED Dehydration (Adult) Prescriptions: No Action aspirin [Adult Low Dose Aspirin] 81 mg tablet,delayed release (DR/EC) 81 mg feeding tube DAILY clonazepam 0.5 mg tablet 0.5 mg feeding tube TID entacapone 200 mg tablet 200 mg feeding tube 6XD Rx Instructions: administer at the same time as l-dopa/carbidopa dose ferrous sulfate 220 mg (44 mg iron)/5 mL elixir 220 mg feeding tube BID pimavanserin 34 mg capsule 34 mg feeding tube DAILY pravastatin 40 mg tablet 40 mg feeding tube DAILY mirtazapine [Remeron] 15 mg tablet 15 mg feeding tube DAILY trazodone 100 mg tablet 100 mg feeding tube DAILY vilazodone 20 mg tablet 20 mg feeding tube DAILY Rx Instructions: must administer with a meal/food multivitamin Tablet 1 tab PO DAILY pantoprazole 40 mg tablet,delayed release (DR/EC) 40 mg PO Q12H magnesium hydroxide [Milk Of Magnesia Concentrated] 2,400 mg/10 mL suspension 30 ml PO QHS PRN (Reason: constipation) folic acid 1 mg Tablet 2 mg feeding tube DAILY carbidopa-levodopa 25-100 mg Tablet 1 tab feeding tube BID PRN (Reason: Anxiety) carbidopa-levodopa 25-100 mg Tablet 1 tab feeding tube Q4H ascorbic acid (vitamin C) Crystals 500 mg feeding tube BID lactose-reduced food with fibr Liquid 75 ml feeding tube QHS Rx Instructions: 75ML/HR 8PM-8AM VIQA CONTINUOUS FEEDING PUMP EVERY NIGHT Acetaminophen [Acetaminophen ER] 650 mg G-tube Q8H PRN PRN (Reason: Pain) Primary Care Provider: Merna Bowen Referrals: Merna Bowen MD [Primary Care Provider] - As Needed Activity Restrictions/Additional Instructions: Labs look good other than mild dehydration. Increase fluid intake. The new feeding tube is in good position. You may use it immediately. I would give her extra fluids. Disposition Disposition: Home, Self Care
[2023-04-13 21:35] LABS: Absolute Neutrophil Count 3.8 X10^3/uL (2.0-7.7); Basophil# 0.02 X10^3/uL; Basophil% 0.3 % (0-1); Eosinophil# 0.14 X10^3/uL; Hematocrit 32.7 % (37-47); Hemoglobin 10.5 g/dL (12.0-15.0); Lymphocyte % 33.9 % (19-41); Mean Corp Hgb Conc 32.1 g/dL (32-36); Mean Corpuscular Volume 90.3 fL (81-99); Mean Platelet Vol. 9.7 fl (6.2-12.0); Monocyte# 0.68 X10^3/uL; Monocyte% 9.6 % (0-10); NRBC Flagged by Analyzer 0 % (0-5); Neutrophil # 3.81 X10^3/uL (2.7-7.7); Neutrophil % 53.9 % (47-70); Platelet Count 297 K/mm3 (150-450); RBC Distribution Width CV 13.6 % (11.6-14.6); RBC Distribution Width SD 45.4 fl (35.1-43.9); Red Blood Count 3.62 M/mm3 (4.2-5.4); White Blood Count 7.1 K/mm3 (4.4-11.0)
[2023-04-13 21:47] LABS: Anion Gap 4 (5-15); BUN 30 mg/dL (7-18); BUN/Creat Ratio 29.1 RATIO (10-20); Calcium,Total 9.2 mg/dL (8.5-10.1); Chloride 109 mmol/L (98-107); Creatinine, Serum 1.03 mg/dL (0.55-1.02); EST Glomerular Filtration Rate 55 mL/min (>60); Est Glom Filt Rate - Afr Amer 67 mL/min (>60); Estimated Creatinine Clearance 43.18 ml/min; Glucose 102 mg/dL (74-106); Potassium 4.1 mmol/L (3.5-5.1); Sodium Level 140 mmol/L (136-145)
--- NOTE | 2023-04-13 21:55 | RAD_ITS ---
EXAM: XR ABDOMEN, 1 VIEW CLINICAL INDICATION: PEG Tube placement TECHNIQUE: Frontal supine view of the abdomen/pelvis. COMPARISON: CT abdomen and pelvis, 06/12/1960 FINDINGS: LOWER THORAX: No acute pathology. GASTROINTESTINAL TRACT: Contrast is identified within the stomach and proximal small bowel. No definite extraluminal contrast. Non-obstructive. No bowel or stomach distention. ORGANS: Normal as visualized. No organomegaly. No abnormal calcifications. BONES/JOINTS: No acute pathology. SOFT TISSUES: No acute pathology. RAD/Abdomen Single View IMPRESSION: Contrast is identified within the stomach and proximal small bowel. No definite extraluminal contrast. The exact position of the gastrostomy tube is indeterminate based on the single image provided. Consider fluoroscopic evaluation or CT for further information. Electronically Signed: Ismael Wall DO at 22:19 EDT ,
== END 2023-04-13 23:00 | disposition home or self-care (01) ==
PROVIDERS: Emergency Provider Emergency Medicine; PCP Internal Medicine Geriatric Medicine; Visit Provider Emergency Medicine
DX: K94.23 Gastrostomy malfunction (principal); E86.0 Dehydration; E78.00 Pure hypercholesterolemia, unspecified; Z87.891 Personal history of nicotine dependence; G20.A1 Parkinson's disease without dyskinesia, without mention of fluctuations; D64.9 Anemia, unspecified; Z86.73 Personal history of transient ischemic attack (TIA), and cerebral infarction without residual deficits; K21.9 Gastro-esophageal reflux disease without esophagitis
CPT/HCPCS: 74018; 80048; 85025; 99282; A4216

== ENCOUNTER 2023-06-21 17:18 | Emergency (ER) | payer MEDICARE, OTHER, MEDICAID, SELFPAY ==
[2023-06-21 17:18] VITALS: TEMP 35.6
--- NOTE | 2023-06-21 17:38 | EX.ED.DYSGE1 ---
HPI History of Present Illness Chief Complaint: General Illness Informant: other (Care staff) Narrative Narrative: They found the patient's PEG tube on the floor at about 4:00 this evening. It was last known to be there about 2 PM. She has had a PEG tube in place for at least 3 years. She had a new 1 placed at endoscopy back in January. She has been doing fine no medical complaints other than the PEG tube was found out. They did not bring the PEG tube in with them. But I have reviewed her outpatient surgery report that shows an inflatable balloon 20 [place]. [facility] Medical History Anemia Anxiety Arthritis Bladder disease Depression Dysphagia Former smoker Gastric reflux GERD (gastroesophageal reflux disease) High cholesterol Insomnia Parkinson's disease Restless legs Stroke/cerebrovascular accident Uses wheelchair Walker as ambulation aid Wears glasses Home Medications aspirin 81 mg tablet,delayed release (Adult Low Dose Aspirin) 81 mg feeding tube DAILY 06/26/22 [History Last Taken Unknown] clonazepam 0.5 mg tablet 0.5 mg feeding tube TID 06/26/22 [History Last Taken Unknown] entacapone 200 mg tablet 200 mg feeding tube 6XD 06/26/22 [History Last Taken 02/03/23] mirtazapine 15 mg tablet (Remeron) 15 mg feeding tube QHS 06/26/22 [History Last Taken Unknown] pravastatin 40 mg tablet 40 mg feeding tube DAILY 06/26/22 [History Last Taken Unknown] trazodone 100 mg tablet 25 mg feeding tube QHS 06/26/22 [History Last Taken 02/03/23] vilazodone 20 mg tablet 20 mg feeding tube DAILY 06/26/22 [History Last Taken 02/03/23] Acetaminophen [Acetaminophen ER] 650 mg G-tube Q8H PRN PRN Pain 06/27/22 [History Last Taken Unknown] ascorbic acid (vitamin C) 500 mg feeding tube BID 06/27/22 [History Last Taken Unknown] carbidopa 25 mg-levodopa 100 mg tablet 1 tab feeding tube BID PRN Anxiety 06/27/22 [History Last Taken Unknown] carbidopa 25 mg-levodopa 100 mg tablet 2 tab feeding tube Q4H 06/27/22 [History Last Taken 02/03/23] folic acid 1 mg tablet 2 mg feeding tube DAILY 06/27/22 [History Last Taken Unknown] magnesium hydroxide 2,400 mg/10 mL oral suspension (Milk Of Magnesia Concentrated) 30 ml PO QHS PRN constipation 01/30/23 [History Last Taken Unknown] multivitamin 1 tab feeding tube DAILY 01/30/23 [History Last Taken Unknown] ferrous sulfate 300 mg (60 mg iron)/5 mL oral liquid 300 mg PO BID 06/21/23 [History Last Taken Unknown] pantoprazole 40 mg granules delayed-release for susp in packet 40 mg PO DAILY 06/21/23 [History Last Taken Unknown] Allergy/AdvReac Type Severity Reaction Status Date / Time adhesive Allergy Rash Verified 04/13/23 18:05 atorvastatin [From Lipitor] Allergy Rash Verified 04/13/23 18:05 cefaclor [From Ceclor] Allergy Hives Verified 04/13/23 18:05 Cephalosporins Allergy Unknown Verified 04/13/23 18:05 ciprofloxacin [From Cipro] Allergy Hives Verified 04/13/23 18:05 hydrocodone [From [place]] Allergy Rash Verified 04/13/23 18:05 hydromorphone [From Dilaudid] Allergy Rash Verified 04/13/23 18:05 Macrolide Antibiotics Allergy Hives Verified 04/13/23 18:05 oxycodone [From Percocet] Allergy Rash Verified 04/13/23 18:05 propoxyphene Allergy Rash Verified 04/13/23 18:05 [From Darvocet-N] simvastatin [From Zocor] Allergy Unknown Verified 04/13/23 18:05 Sulfa (Sulfonamide Allergy Rash Verified 04/13/23 18:05 Antibiotics) cimetidine [From Tagamet] AdvReac Upset Verified 04/13/23 18:05 Stomach erythromycin base AdvReac Upset Verified 04/13/23 18:05 Stomach Surgical History History of appendectomy History of cholecystectomy History of esophagogastroduodenoscopy (EGD) History of hysterectomy History of tonsillectomy S/P percutaneous endoscopic gastrostomy (PEG) tube placement Social History Smoking Status: Smoker, status unknown tobacco type: cigarettes ROS ROS ED Constitutional Constitutional ED: Denies chills or fever(s) Cardiovascular Cardiovascular: Denies racing heartbeat Respiratory/Chest Respiratory/Chest: Denies cough Gastrointestinal Gastrointestinal: Denies diarrhea or vomiting Integumentary Denies rash Hematologic/Lymphatic Hematologic/Lymphatic: Denies easy bleeding or easy bruising Allergic/Immunologic Allergic/Immunologic ED: Denies urticaria EXAM Physical Exam Narrative Exam Narrative: General: Patient is awake laying in bed at baseline per provider. HEENT: No trauma Neck is supple Lungs are clear bilateral. No coughing Heart is regular. Abdomen: Positive normal bowel sounds soft and nondistended. She has a PEG tube site in the left upper quadrant. No bleeding or drainage. Const Vital Signs: 06/21/23 17:18 Temperature 96.0 F L Temperature Source Temporal MDM MDM MDM Narrative Medical decision making narrative: Seizure: Replacement of PEG tube: We used assistance to help hold the patient. She does tend to push and fight a bit. This is normal for her. We use lubrication and tried to place a 20 [place] PEG tube. I can get it to go in 1.5 cm and it would not pass any further even with just slow gentle pressure and changing orientation. We then changed to a 16 [place] which actually passed rather easily in place. Balloon was inflated. Gastric contents did start to come out slightly. We will verify placement with x-ray. My independent interpretation of the x-ray is suspicious for 2 more in the duodenum and small bowel but not stomach. I did discuss this with the radiologist. He agreed. He states the last x-ray looks like the tube barely goes into the stomach. He states it would be possible to pull back and shoot another film. But there be concerns of removing this tube and pulling back too far. He states it is appropriate to leave where it is. The patient is comfortable. There is no discomfort associated with this. She is relaxed and calm now. I explained this to her care providers. In either case this will need to be switched over to a normal tube relatively soon. They will have to aggressively grind any pills and flush them well to avoid obstruction. If she develops pain, vomiting or any other symptoms they need to return. Radiography Diagnostic Testing: Clinical Impression(s) from Imaging Studies [facility] X-Ray 06/21/23 18:49 IMPRESSION: Percutaneous gastrostomy tube empties into the duodenal bulb without leak. Clinical correlation is recommended. Electronically Signed: Eric Leos MD at 20:24 EST , ADDENDUM: 06/21/232037 IMPRESSION: Percutaneous gastrostomy tube empties into the duodenal bulb without leak. Clinical correlation is recommended. N.B. : The above Results were Read Back by Eric Leos MD to Shaquille Gonzalez MD, and understanding confirmed on 06/21/2023 20:31:48 (ET). Electronically Signed: Eric Leos MD at 20:24 EST , Discharge Plan Triage Chief Complaint: General Illness ED Provider: Shaquille Gonzalez Dx/Rx/DC Orders Clinical Impression: PEG (percutaneous endoscopic gastrostomy) adjustment/replacement/removal Instructions: Gastrostomy Feeding Tube Care ... Prescriptions: No Action aspirin [Adult Low Dose Aspirin] 81 mg tablet,delayed release (DR/EC) 81 mg feeding tube DAILY clonazepam 0.5 mg tablet 0.5 mg feeding tube TID entacapone 200 mg tablet 200 mg feeding tube 6XD Rx Instructions: administer at the same time as l-dopa/carbidopa dose pravastatin 40 mg tablet 40 mg feeding tube DAILY mirtazapine [Remeron] 15 mg tablet 15 mg feeding tube QHS trazodone 100 mg tablet 25 mg feeding tube QHS vilazodone 20 mg tablet 20 mg feeding tube DAILY Rx Instructions: must administer with a meal/food multivitamin Tablet 1 tab feeding tube DAILY magnesium hydroxide [Milk Of Magnesia Concentrated] 2,400 mg/10 mL suspension 30 ml PO QHS PRN (Reason: constipation) folic acid 1 mg Tablet 2 mg feeding tube DAILY carbidopa-levodopa 25-100 mg Tablet 1 tab feeding tube BID PRN (Reason: Anxiety) carbidopa-levodopa 25-100 mg Tablet 2 tab feeding tube Q4H ascorbic acid (vitamin C) Crystals 500 mg feeding tube BID Acetaminophen [Acetaminophen ER] 650 mg G-tube Q8H PRN PRN (Reason: Pain) ferrous sulfate 300 mg (60 mg iron)/5 mL liquid 300 mg PO BID pantoprazole [address] for susp in packet 40 mg PO DAILY Primary Care Provider: Merna Bowen Referrals: Merna Bowen MD [Primary Care Provider] - As Needed Maryjo Nunez MD [Med Staff - Active Staff] - As soon as possible Activity Restrictions/Additional Instructions: Call Dr. Nunez first thing on Thursday. You will need this tube changed over to a regular gastrostomy tube. This is a temporary tube that is not in the ideal position. It is also thinner than your average tube and has a higher rate of occlusion. Disposition Disposition: Home, Self Care
--- NOTE | 2023-06-21 18:49 | RAD_ITS ---
We are attempting to reach an attending provider to discuss findings. An addendum with communication details will be sent when the communication is complete. STUDY: X-RAY - ABDOMEN/PELVIS REASON FOR EXAM: Female, 77 years old. PEG TUBE PLACEMENT -- USE GASTROGRAFIN TECHNIQUE: Single AP view of the abdomen / pelvis. COMPARISON: 04/13/2023 FINDINGS: Injection of percutaneous gastrostomy tube produces opacification of the duodenal bulb with no contrast in the stomach. Contrast is seen traversing the duodenal bulb into the proximal jejunum. No contrast extravasation to suggest leak. There is an unremarkable bowel gas pattern. The visualized liver, spleen and kidneys are grossly normal in size and morphology. Status post cholecystectomy. Normal visualized osseous structures. RAD/Abdomen Single View IMPRESSION: Percutaneous gastrostomy tube empties into the duodenal bulb without leak. Clinical correlation is recommended. Electronically Signed: Eric Leos MD at 20:24 EST ,
[2023-06-21 21:37] VITALS: RESP 16
== END 2023-06-21 21:37 | disposition home or self-care (01) ==
PROVIDERS: Emergency Provider Emergency Medicine; PCP Internal Medicine Geriatric Medicine; Visit Provider Emergency Medicine
DX: K94.29 Other complications of gastrostomy (principal); E78.00 Pure hypercholesterolemia, unspecified; Z86.73 Personal history of transient ischemic attack (TIA), and cerebral infarction without residual deficits; Z79.82 Long term (current) use of aspirin; F41.9 Anxiety disorder, unspecified; G20.A1 Parkinson's disease without dyskinesia, without mention of fluctuations; F32.A Depression, unspecified; Z79.899 Other long term (current) drug therapy; Z90.49 Acquired absence of other specified parts of digestive tract; F17.210 Nicotine dependence, cigarettes, uncomplicated
CPT/HCPCS: 43762; 74018; 99282

== ENCOUNTER → 2023-07-09 | Outpatient (CLI) | payer MEDICARE, OTHER, MEDICAID, SELFPAY ==
--- NOTE | 2023-07-09 14:41 | CPS ---
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
== END | disposition home or self-care (01) ==
PROVIDERS: PCP Internal Medicine Geriatric Medicine; Referring Provider Internal Medicine Geriatric Medicine; Visit Provider Internal Medicine Pulmonary Disease
DX: R00.0 Tachycardia, unspecified (principal); I49.9 Cardiac arrhythmia, unspecified
CPT/HCPCS: 93225; 93226

== ENCOUNTER 2023-10-21 11:41 | Outpatient (CLI) | payer MEDICARE, OTHER, MEDICAID, SELFPAY ==
[2023-10-21] MEDS: 0.9% NaCl Peripheral Flush Adult/Peds IV (11:57)
[2023-10-21] MEDS: 0.9% NaCl IVPB Med Flush (250 mL) 15 ML IV (12:06)
[2023-10-21 12:08] VITALS: BP 122/69; PULSE 87; RESP 16; TEMP 36.2; O2SAT 96
[2023-10-21] MEDS: Iron Sucrose Complex 200 MG in 0.9% Normal Saline (100mL Bag) 100 ML 220 MG IV (12:18)
[2023-10-21 13:35] VITALS: BP 139/76; PULSE 102; RESP 16; TEMP 36.2
== END 2023-10-21 11:42 | disposition home or self-care (01) ==
LOC: MEDOUTP 11:42
PROVIDERS: PCP Internal Medicine Geriatric Medicine
DX: D50.9 Iron deficiency anemia, unspecified (principal)
CPT/HCPCS: 96365; J1756; J7050; A4216